=== PATIENT | male | born 1945 | race Two or more races ===

== ENCOUNTER → 2016-06-08 | Outpatient (CLI) | payer OTHER ==
[~2016-06-08] MED LIST: IOPAMIDOL (ISOVUE 370) 100 ML BTL IV ONE
--- NOTE | 2016-06-08 15:51 | CT ---
Unenhanced and Multiphasic Contrast-Enhanced CT Scan of the Abdomen and Pelvis Clinical History: 70-year-old male with hematuria and nephrolithiasis noted to have a possible solid lesion in the left kidney on recent sonography. Technique: Oral contrast was not administered. A multidetector unenhanced helical CT scan was initial ly obtained of the abdomen and pelvis and then following the uncomplicated intravenous administration of 90 mL of Isovue-370, multidetector helical CT scan was obtained during the arterial, portal venou s, and delayed excretory phases. Delayed excretory images were not provided. Images were reformatted at 2.50 and 1.25 mm increments, and reviewed at a variety of window and level settings. Sagittal and coronal constructed images are also provided. The DFOV is 50.0 cm. A dose reduction protocol was used . Comparison Study: Renal sonography, dated June 01, 2016. Findings: Unenhanced CT Scan of the Abdomen: The heart is enlarged, and there are aortic and right coronary art randy atherosclerotic calcifications. There is no pleural or pericardial effusion. There is a tiny calc ified granuloma in the anterior left lower lobe, and a 5.5 x 6.0 mm noncalcified nodule laterally in the right middle lobe. Formal chest CT imaging is recommended to determine if there are other noncalc ified nodules. In the left hepatic lobe, there is a rounded 2.3 x 2.2 cm hypodense cyst with a Hounsf ield unit measurement of 13. There is some increased attenuation associated with the gallbladder, sug gestive of sludge with tiny calcifications seen inferiorly on series 3, image 127. There is no perich olecystic fluid. There is no bile duct dilatation. There is a 2.1 x 1.2 cm right retrocrural lymph no de, as well as some hepatogastric ligament lymph nodes, the largest measuring 1.3 x 1.4 cm. There are also periportal lymph nodes, the largest measuring 3.3 x 2.3 cm. There is some indistinctness to the fat posterior to the pancreas and near the celiac and SMA vasculature. The spleen is enlarged, measu ring 16.3 x 7.9 x 17.6 cm. A couple of punctate calcifications are seen in the body of the pancreas. There is indistinctness of the fat along the upper left pericolic gutter near the spleen and along th e proximal descending colon. There are a couple of 4 mm nonobstructive nephroliths in the lower pole of the left kidney. There is a bilobed, macrolobulated exophytic mass noted along the anterior upper pole of the left kidney with a Hounsfield unit measurement of 37. The right kidney appears normal. Th e abdominal aorta and IVC are normal in caliber. There is severe degenerative disk space narrowing wi th disk desiccation at L1-L2 and L5-S1 with some endplate sclerosis. There is no osteolytic lesion. T here is a normal appearance to the appendix on series 3, images 223-243. There is no evidence of uret erolithiasis or urinary bladder calculi. Phleboliths are seen in the caudal pelvis. Scattered sigmoid colon diverticula are noted. Multiphasic Contrast-Enhanced CT Scan of the Abdomen: The macrolobulated exophytic mass along the ant erior upper pole of the left kidney measures 3.8 x 3.8 x 2.4 cm, and during the arterial phase has a Hounsfield measurement of 54 and during the portal venous phase has a Hounsfield unit measurement of 46. This lesion is consistent with a renal cell carcinoma until proven otherwise. There are a couple of "hon-iadan-cp-characterize" hypodensities in the cortex of the lower pole of the left kidney, stat istically representing tiny cysts; continued surveillance is warranted, however, given the appearance of the solid suspicious mass in the upper pole of the left kidney. There is no solid or cystic mass associated with the right kidney. There is mild nodular thickening of the superior portion of the rig ht adrenal gland, and also involving the medial and lateral limbs of the left adrenal gland. The left hepatic lobe cyst during the portal venous phase has a Hounsfield measurement of 12, and during the excretory phase of 8; this is consistent with a simple cyst. There are numerous serpentine-shaped ves sels in the periportal region (suggestive of "cavernous transformation"), and extending anterior to t he left hepatic lobe to the supraumbilical region, as well as some vascular collaterals in the left u pper quadrant of the abdomen. Again, there are several hepatogastric, periportal, and peripancreatic abnormal lymph nodes as well as the aforementioned splenomegaly. Does the patient have an underlying myelodysplastic syndrome? A component of portal hypertension is also mentioned. Numerous colonic div erticula are seen throughout the ascending colon and the sigmoid colon, and to a lesser degree throug hout other portions of the colon. There is a small amount of right perihepatic ascites. Moderate cent ripetal and subcutaneous obesity is present. There is no abnormal small bowel dilatation. Contrast-Enhanced CT Scan of the Pelvis: The urinary bladder is moderately distended. The pelvic port ions of the ureters are contrast-opacified and follow a normal anatomic course to the urinary bladder (please reference coronal series 501, images 49-58). There is a urine-contrast level seen within the urinary bladder, with no mural mass observed. Scattered sigmoid colon diverticula are seen. The pros [place] gland and the seminal vesicles appear normal. There is no adenopathy or ascites. The osseous str uctures are age-appropriate. There is some mild stranding of the pericolonic fat posterior to the sig moid colon. Impression: 1. There is a 3.8 cm macrolobulated solid mass in the upper pole of the left kidney, most consistent with a renal cell carcinoma (until proven otherwise). 2. Cardiomegaly with aortic valvular and RCA coronary artery atherosclerotic calcifications. 3. There is a 5.5 x 6.0 mm noncalcified pulmonary nodule laterally in the right middle lobe. Formal c hest CT imaging is recommended for further assessment. 4. Small volume of right perihepatic ascites with cavernous transformation of the portal vein and num erous periportal, perihepatic, supraumbilical, and left upper quadrant collaterals within the context of splenomegaly, raising the possibility of portal venous hypertension. The enlarged spleen is also seen in conjunction with hepatogastric, right retrocrural, periportal, and peripancreatic lymph nodes , and exclusion of a myelodysplastic syndrome is suggested. 5. Nonobstructive lower pole left nephrolithiasis with a couple of suspected tiny cortical cysts in t he lower pole of the left kidney. Continued surveillance is warranted. 6. Mild nodular thickening of the limbs of the adrenal glands. 7. Mild gallbladder hydrops with dependent densities, suggestive of sludge and stones. Confirmation w ith sonography could be considered, as clinically directed. 8. Diffuse colonic diverticulosis with some nonspecific pericolonic inflammation along the left peric olic gutter. 9. There is a simple-appearing left hepatic lobe cyst.
== END ==
LOC: CIMAGING 11:19
PROVIDERS: ATTEND Internal Medicine
DX: N28.9 Disorder of kidney and ureter, unspecified (principal); I51.7 Cardiomegaly; I25.10 Atherosclerotic heart disease of native coronary artery without angina pectoris; N20.0 Calculus of kidney; K57.30 Diverticulosis of large intestine without perforation or abscess without bleeding; K76.89 Other specified diseases of liver
CPT/HCPCS: 74178; Q9967

== ENCOUNTER → 2016-06-22 | Outpatient (CLI) | payer OTHER ==
--- NOTE | 2016-06-22 15:20 | CT ---
Unenhanced CT Scan of the Chest Clinical History: 70-year-old male with a left renal neoplasm, noted to have a 6 mm noncalcified nod ule laterally in the right middle lobe on recent CT imaging of the abdomen. Evaluate for other pulmon james nodules. ICD 10 Diagnostic Code: D41.02. TECHNIQUE: A multidetector unenhanced helical CT scan was obtained from the base of the neck inferior ly to the upper abdomen, with images reformatted at 2.50 and 1.50 mm increments, and reviewed at a [facility] of window and level settings. Parasagittal and paracoronal reconstructed images are also review ed on the workstation. The DFOV is 43.2 cm. A dose reduction protocol was used. COMPARISON STUDY: Unenhanced CT scan of the abdomen which included the lung bases, dated 06/08/2016. FINDINGS: The noncalcified 6 mm pulmonary nodule in the lateral right middle lobe is again seen on se swapna 3, image 142. There is a 2 mm subpleural calcified granuloma in the anterolateral left lung base , as well as a couple of other 2 mm calcified granulomata seen in the subpleural aspect of the latera l right middle lobe. There is a tiny curvilinear scar in the medial right apex. There is no axillary, supraclavicular, or pathologically-enlarged superior mediastinal lymphadenopathy. There is a 2.1 cm right retrocrural lymph node on series 2 image 91, and previously identified hepatogastric and peripo rtal lymph nodes are noted. There is splenomegaly, measuring 17 cm in AP diameter. There are some mil d dependent changes seen posteriorly at the lung bases. There is no focal alveolar consolidation, or pleural effusion. The heart is mildly enlarged. There is borderline aneurysmal dilatation of the asce nding thoracic aorta measuring 4.1 x 4.1 cm at the right crossing pulmonary artery. The descending th oracic aorta is upper normal in size, measuring 2.9 x 2.9 cm. There is extensive atherosclerotic calc ification associated with the left main, left anterior descending, left circumflex, and right coronar y arteries. There is also some aortic valvular calcification. There is no pericardial effusion. The o sseous structures are age-appropriate with some degenerative features. There is no lytic or blastic l esion. In the upper abdomen, there is a stable 2.3 x 2.2 cm cyst in the left hepatic lobe. There is increase d attenuation associated with the gallbladder which is moderately distended, consistent with sludge. There are also some dependent stones seen. There is no pericholecystic fluid or gallbladder wall thic kening. IMPRESSION: 1. There is a 6 mm right middle lobe noncalcified nodule; recommend follow-up CT reevaluation in 6 mo nths. There are also small calcified granulomata seen bilaterally. 2. Cardiomegaly with extensive coronary artery atherosclerotic calcifications, as well as some aortic valvular calcification. 3. There is a 2.3 cm left hepatic lobe cyst. 4. Splenomegaly. 5. Right retrocrural, hepatogastric ligament, and periportal lymphadenopathy. 6. Gallbladder distention with sludge and dependent stones. 7. Mild aneurysmal dilatation of the ascending thoracic aorta, measuring 4.1 cm.
== END ==
LOC: CIMAGING 11:19
PROVIDERS: ATTEND Specialist
DX: R91.1 Solitary pulmonary nodule (principal); D41.02 Neoplasm of uncertain behavior of left kidney; K76.89 Other specified diseases of liver; R16.1 Splenomegaly, not elsewhere classified
CPT/HCPCS: 71250-PO

== ENCOUNTER 2016-07-16 16:41 | Emergency (ER) | payer OTHER ==
[2016-07-16 17:08] VITALS: TEMP 98.8
[2016-07-16 17:26] LABS: COLOR YELLOW; LEUKOCYTE ESTERASE,URINE NEGATIVE (NEGATIVE); NITRITE,URINE NEGATIVE (NEGATIVE)
[2016-07-16 17:44] LABS: MUCUS TRACE /lpf (NONE-1+)
--- NOTE | 2016-07-16 18:46 | EDPHY ---
H & P Stated Complaint: constipation /not emptying bladder x 1 week Time Seen by Provider: 07/16/16 18:06 HPI/ROS: CHIEF COMPLAINT: I am constipated HISTORY OF PRESENT ILLNESS: 70-year-old male history of diabetes, recent diagnosis of renal cell carcinoma, has not undergone chemotherapy or surgical intervention for this, complaining of constipation, lower abdominal pain, last bowel movement 3 days ago. Passing gas as normal. Was seen by his PCP earlier today who recommended he go to the ER for further evaluation. He has history of chronic back pain but denies acute complaints. No incontinence. No saddle anesthesia. No lower extremity radicular complaints. No fever or chills. No nausea or vomiting. No flu-like symptoms. PATIENT'S MEDICAL PROVIDERS: Dr. Osei. Dr Medeiros. Dr Castro. REVIEW OF SYSTEMS: A ten point review of systems was performed and is negative with the exception of the items mentioned in the HPI PAST MEDICAL & SURGICAL HISTORY: Diabetes. Recent renal cell carcinoma diagnosis. SOCIAL HISTORY: PHYSICAL EXAM (Prior to examination, patient consented to physical exam, hands were washed and my usual and customary physical exam procedures followed) 1) GENERAL: alert and oriented. Appears to be in no acute distress. 2) HEAD: Normocephalic, atraumatic 3) HEENT: Pupils equal, round, reactive to light bilaterally. Sclera anicteric. 4) NECK: Full range of motion, no meningeal signs. 5) LUNGS: Clear auscultation bilaterally, no wheezes, no rhonchi, no retractions. 6) HEART: Regular rate and rhythm 7) ABDOMEN: obese,No guarding, tender to palpation lower abdomen. negative Webber's, negative Rovsing's, negative peritoneal sign, no right upper quadrant pain 8) MUSCULOSKELETAL: Moving all extremities, no focal areas of tenderness, no obvious trauma. No peripheral edema or discoloration. 9) BACK: No CVA tenderness, no midline vertebral tenderness, no fluctuance, no step-off, no obvious trauma, no visual or palpable abnormality. Patella and Achilles reflexes intact to bilateral strength 5/5. 10) SKIN: No rash, no petechiae. 11) Psychiatric: Patient is oriented X 3, there is no agitation. 12) rectal : Normal rectal tone, no stool in the rectal vault DIFFERENTIAL DIAGNOSIS: in no particular include but limited to bowel obstruction, acute appendicitis, metastases, cauda equina - Personal History Current Tetanus/Diphtheria Vaccine: Yes - Medical/Surgical History Hx Asthma: No Hx Chronic Respiratory Disease: No Hx Diabetes: Yes Hx Cardiac Disease: No Hx Renal Disease: Yes Hx Cirrhosis: No Hx Alcoholism: No Hx HIV/AIDS: No Hx Splenectomy or Spleen Trauma: No Other PMH: diabetes/bph/kidney issues/l knee scope/kidney stones/vasectomy/ibs - Social History Smoking Status: Never smoked Constitutional: Initial Vital Signs Temperature (C) 37.1 C 07/16/16 17:06 Heart Rate 80 07/16/16 17:06 Respiratory Rate 18 07/16/16 17:06 Blood Pressure 135/81 H 07/16/16 17:06 O2 Sat (%) 94 07/16/16 17:06 O2 Delivery Mode Room Air Allergies/Adverse Reactions: No Known Allergies Allergy (Unverified 07/16/16 17:01) Home Medications: Medication Instructions Recorded Aspirin 81mg (*) 07/16/16 Ciprofloxacin [Cipro] 500 mg PO BID #20 tab 07/16/16 Finasteride 07/16/16 Fluticasone Furoate 07/16/16 Labetalol HCl 07/16/16 Losartan-Hctz 100-25 mg Tab 07/16/16 Metformin HCl 07/16/16 Potassium 07/16/16 Pravastatin Sodium 07/16/16 Symax 07/16/16 Tamsulosin HCl 07/16/16 Vitamin B12 07/16/16 metroNIDAZOLE [Flagyl 500 mg (*)] 500 mg PO TID 10 Days 07/16/16 Medical Decision Making - Diagnostics Imagin:50 p.m.: CT Scan of the Abdomen and Pelvis (With Contrast) Indication: Abdominal pain. History of known renal cancer. Comparison: June 2016. Technique: 96 mL of Isovue 300 were given intravenously by machine power injection. Multidetector helical CT imaging was performed from the diaphragm to the symphysis pubis. Dose reduction techniques were utilized. Findings: Abdomen: There is mild scarring of the lung bases. Hypodense lesion is seen at the dome of the liver most compatible with benign hepatic cysts. There is mild free fluid, perihepatic. There is sludge and debris and possible small gallstones dependently in the gallbladder, similar in appearance. Nodules are seen in both adrenal glands, stable in size and appearance. Pancreas is unremarkable. There is a lobulated soft tissue mass exophytic off the superior pole of the left kidney measuring 3.8 cm, stable in appearance. No evidence for hydronephrosis. A couple small renal calculi are seen nonobstructive in the inferior pole of the left kidney. No evidence of dilatation of the proximal ureters. Pelvis: Diverticulosis is seen in the sigmoid colon. There is a segment of bowel wall thickening and stranding in the sigmoid colon and anterior aspect of the pelvis just above the bladder. There is mild free fluid seen in the pelvis. No evidence for free intraperitoneal air. Mild stool is seen in the colon. No evidence for bladder calculus. Degenerative changes seen in the lumbar spine. Impression: 1. Moderate diverticulitis sigmoid colon in the anterior pelvis just above the bladder. Mild free fluid in the pelvis. 2. Lobulated solid mass exophytic off the superior pole of the left kidney most suggestive of renal cell carcinoma, stable in appearance. 3. Debris and probable small gallstones in the gallbladder. 4. Hepatic cyst. 5. Bilateral adrenal gland nodule stable in appearance. 6. Other chronic findings as above. Results called and discussed with Prasanth Heller PA-C, on 07/16/2016 at 1947 hours. Dictated By: Garett Bain MD Images reviewed by myself ED Course/Re-evaluation: 6:40 p.m.: This patient appears well overall. I discussed case Dr. Yenny Quiñones and reviewed the patient's old medical records. At this time, I think that acute spinal etiology such as cauda equina is less than likely as he is neurologically intact lower extremities and has normal rectal tone. However , given his complaints of abdominal pain, his recent diagnosis of renal cell carcinoma, we discussed the possibility of acute surgical abdominal pathology resulting his current symptoms and recommended diagnostic studies including CT imaging. He is agreeable with this. 8:01 p.m.: Re-evaluation. Discussed his imaging results. He is noted to have sigmoid diverticulitis without abscess or perforation. He has no history of chemotherapy or radiation therapy, no immune suppressed condition. I think he can be treated on outpatient basis with oral antibiotics. He is also noted to have a debris and probable small gallstones on his CT scan however no complaints of right upper quadrant pain. Doubt acute cholecystitis. Also recommend patient take a concurrent probiotic with his current antibiotics. - Data Points Laboratory Results: Laboratory Results 07/16/16 18:40 07/16/16 18:40 07/16/16 07/16/16 18:40 17:10 WBC 7.05 10^3/uL (3.80-9.50) RBC 4.80 10^6/uL (4.40-6.38) Hgb 14.9 g/dL (13.7-17.5) Hct 43.2 % (40.0-51.0) MCV 90.0 fL (81.5-99.8) MCH 31.0 pg (27.9-34.1) MCHC 34.5 g/dL (32.4-36.7) RDW 14.1 % (11.5-15.2) Plt Count 92 L 10^3/uL (150-400) MPV 10.3 fL (8.7-11.7) Neut % (Auto) 68.5 % (39.3-74.2) Lymph % (Auto) 14.9 L % (15.0-45.0) [place] % (Auto) 8.9 % (4.5-13.0) Eos % (Auto) 7.2 % (0.6-7.6) Baso % (Auto) 0.4 % (0.3-1.7) Nucleat RBC Rel Count 0.0 % (0.0-0.2) Absolute Neuts (auto) 4.82 10^3/uL (1.70-6.50) Absolute Lymphs (auto) 1.05 10^3/uL (1.00-3.00) Absolute Monos (auto) 0.63 10^3/uL (0.30-0.80) Absolute Eos (auto) 0.51 H 10^3/uL (0.03-0.40) Absolute Basos (auto) 0.03 10^3/uL (0.02-0.10) Absolute Nucleated RBC 0.00 10^3/uL (0-0.01) Immature Gran % 0.1 % (0.0-1.1) Immature Gran # 0.01 10^3/uL (0.00-0.10) Sodium 139 mEq/L (134-144) Potassium 3.8 mEq/L (3.5-5.2) Chloride 104 mEq/L (97-110) Carbon Dioxide 24 mEq/l (22-31) Anion Gap 11 mEq/L (8-16) BUN 8 mg/dL (7-23) Creatinine 0.7 mg/dL (0.7-1.3) Estimated GFR > 60 Glucose 96 mg/dL (70-100) Calcium 10.4 mg/dL (8.5-10.4) Total Bilirubin 6.3 H mg/dL (0.1-1.4) Conjugated Bilirubin 0.6 H mg/dL (0.0-0.5) Unconjugated Bilirubin 5.7 H mg/dL (0.0-1.1) AST 28 IU/L (17-59) ALT 32 IU/L (21-72) Alkaline Phosphatase 84 IU/L (38-126) Total Protein 6.8 g/dL (6.3-8.2) Albumin 3.8 g/dL (3.5-5.0) Lipase 75.0 IU/L (23-300) Urine Color YELLOW Urine Appearance CLEAR Urine pH 6.0 (5.0-7.5) Ur Specific [place] 1.008 (1.002-1.030) Urine Protein NEGATIVE (NEGATIVE) Urine Ketones NEGATIVE (NEGATIVE) Urine Blood 2+ H (NEGATIVE) Urine Nitrate NEGATIVE (NEGATIVE) Urine Bilirubin NEGATIVE (NEGATIVE) Urine Urobilinogen NEGATIVE EU (0.2-1.0) Ur Leukocyte Esterase NEGATIVE (NEGATIVE) Urine RBC 3-5 H /hpf (0-3) Urine WBC 1-3 /hpf (0-3) Ur Epithelial Cells NONE SEEN /lpf (NONE-1+) Urine Mucus TRACE /lpf (NONE-1+) Urine Glucose NEGATIVE (NEGATIVE) Medications Given: Discontinued Medications Ciprofloxacin (Cipro 500mg Prepack#2) 1 btl TAKEHOME EDNOW ONE Stop: 07/16/16 20:12 Last Admin: 07/16/16 20:23 Dose: 1 btl Metronidazole (Flagyl) 500 mg PO EDNOW ONE PRN Reason: Protocol Stop: 07/16/16 20:14 Last Admin: 07/16/16 20:23 Dose: 500 mg Departure - Departure Disposition: Home, Routine, Self-Care Clinical Impression: Sigmoid diverticulitis Condition: Good Instructions: Diverticulitis (ED) Additional Instructions: Seek immediate medical attention if you develop new or worsening symptoms, if you develop fevers, chills, inability to tolerate oral intake or any other symptoms that concerns you. Referrals: He Osei MD [Primary Care Provider] - 1-2 days without fail Arnold Carvajal MD [Medical Doctor] - 5-7 days, call for appt. (Dr. Arnold Carvajal is a project management specialist) Prescriptions: Ciprofloxacin [Cipro] 500 mg PO BID #20 tab metroNIDAZOLE [Flagyl 500 mg (*)] 500 mg PO TID 10 Days
[2016-07-16 18:54] LABS: % IMMATURE GRANULYOCYTES 0.1 % (0.0-1.1); ABSOLUTE IMMATURE GRANULOCYTES 0.01 10^3/uL (0.00-0.10); ADD DIFF? NO; ADD MORPH? NO; ADD SCAN? NO; ATYPICAL LYMPHOCYTE FLAG 10 (0-99); FRAGMENT RBC FLAG 0 (0-99); HEMATOCRIT 43.2 % (40.0-51.0); HEMOGLOBIN 14.9 g/dL (13.7-17.5); LEFT SHIFT FLG 0 (0-99); LIPEMIA HEMOLYSIS FLAG 90 (0-99); MEAN CELL HEMOGLOBIN CONCENTR. 34.5 g/dL (32.4-36.7); MEAN PLATELET VOLUME 10.3 fL (8.7-11.7); PLATELET CLUMPS FLAG 20 (0-99); PLATELET COUNT 92 10^3/uL (150-400); RED CELL DISTRIBUTION WIDTH 14.1 % (11.5-15.2)
[2016-07-16 19:05] LABS: ALANINE AMINOTRANSFERASE 32 IU/L (21-72); ALBUMIN 3.8 g/dL (3.5-5.0); ALKALINE PHOSPHATASE 84 IU/L (38-126); ANION GAP 11 mEq/L (8-16); ASPARTATE AMINOTRANSFERASE 28 IU/L (17-59); BILIRUBIN,TOTAL 6.3 mg/dL (0.1-1.4); BILIRUBIN-CONJUGATED 0.6 mg/dL (0.0-0.5); BILIRUBIN-UNCONJUGATED 5.7 mg/dL (0.0-1.1); CALCIUM 10.4 mg/dL (8.5-10.4); CARBON DIOXIDE 24 mEq/l (22-31); CHLORIDE 104 mEq/L (97-110); CREATININE 0.7 mg/dL (0.7-1.3); GLOMERULAR FILTRATION RATE > 60; GLUCOSE 96 mg/dL (70-100); POTASSIUM 3.8 mEq/L (3.5-5.2); SODIUM 139 mEq/L (134-144); TOTAL PROTEIN 6.8 g/dL (6.3-8.2)
[2016-07-16] MEDS ORDERED: IOPAMIDOL (ISOVUE-300) 100 ML BTL IV ONE (19:08)
--- NOTE | 2016-07-16 19:54 | CT ---
CT Scan of the Abdomen and Pelvis (With Contrast) Indication: Abdominal pain. History of known renal cancer. Comparison: June 2016. Technique: 96 mL of Isovue 300 were given intravenously by machine power injection. [facility] from the diaphragm to the symphysis pubis. Dose reduction techniques w ere utilized. Findings: Abdomen: There is mild scarring of the lung bases. Hypodense lesion is seen at the dome of the liver most compatible with benign hepatic cysts. There is mild free fluid, perihepatic. There is sludge an d debris and possible small gallstones dependently in the gallbladder, similar in appearance. Nodules are seen in both adrenal glands, stable in size and appearance. Pancreas is unremarkable. There is a lobulated soft tissue mass exophytic off the superior pole of the left kidney measuring 3.8 cm, stab le in appearance. No evidence for hydronephrosis. A couple small renal calculi are seen nonobstructiv e in the inferior pole of the left kidney. No evidence of dilatation of the proximal ureters. Pelvis: Diverticulosis is seen in the sigmoid colon. There is a segment of bowel wall thickening and stranding in the sigmoid colon and anterior aspect of the pelvis just above the bladder. There is mi ld free fluid seen in the pelvis. No evidence for free intraperitoneal air. Mild stool is seen in the colon. No evidence for bladder calculus. Degenerative changes seen in the lumbar spine. Impression: 1. Moderate diverticulitis sigmoid colon in the anterior pelvis just above the bladder. Mild free flu id in the pelvis. 2. Lobulated solid mass exophytic off the superior pole of the left kidney most suggestive of renal c ell carcinoma, stable in appearance. 3. Debris and probable small gallstones in the gallbladder. 4. Hepatic cyst. 5. Bilateral adrenal gland nodule stable in appearance. 6. Other chronic findings as above. Results called and discussed with Prasanth Heller PA-C, on 07/16/2016 at 1947 hours.
[2016-07-16] MEDS ORDERED: CIPROFLOXACIN 500MG PREPACK#2 BTL TAKEHOME ONE (20:11)
[2016-07-16] MEDS ORDERED: metroNIDAZOLE 500 MG TAB PO ONE (20:13)
[2016-07-16 20:24] VITALS: BP 148/86; PULSE 85; RESP 16; O2SAT 93
== END 2016-07-16 20:24 | disposition home or self-care (01) ==
DX: K57.32 Diverticulitis of large intestine without perforation or abscess without bleeding (principal); E11.9 Type 2 diabetes mellitus without complications; Z85.528 Personal history of other malignant neoplasm of kidney; Z79.82 Long term (current) use of aspirin
CPT/HCPCS: 74177; 99285; Q9967

== ENCOUNTER 2016-08-26 05:37 | Inpatient (IN) | payer OTHER ==
[2016-08-04 12:38] LABS: % IMMATURE GRANULYOCYTES 0.3 % (0.0-1.1); ABSOLUTE IMMATURE GRANULOCYTES 0.01 10^3/uL (0.00-0.10); ADD DIFF? NO; ADD MORPH? NO; ADD SCAN? NO; ATYPICAL LYMPHOCYTE FLAG 0 (0-99); FRAGMENT RBC FLAG 0 (0-99); HEMATOCRIT 43.1 % (40.0-51.0); HEMOGLOBIN 14.5 g/dL (13.7-17.5); LEFT SHIFT FLG 0 (0-99); LIPEMIA HEMOLYSIS FLAG 80 (0-99); MEAN CELL HEMOGLOBIN 31.3 pg (27.9-34.1); MEAN CELL HEMOGLOBIN CONCENTR. 33.6 g/dL (32.4-36.7); MEAN CELL VOLUME 92.9 fL (81.5-99.8); PLATELET CLUMPS FLAG 0 (0-99); PLATELET COUNT 113 10^3/uL (150-400); RED BLOOD CELL COUNT 4.64 10^6/uL (4.40-6.38); RED CELL DISTRIBUTION WIDTH 14.1 % (11.5-15.2)
[2016-08-26] MEDS ORDERED: LR 1,000 ML IV ONE (06:06)
[2016-08-26] MEDS ORDERED: LIDOCAINE 1% 2 ML INJ ONE (06:28)
[2016-08-26] MEDS ORDERED: SKIN ADHESIVE (DERMABOND) 1 EACH TP ONE (06:43)
[2016-08-26] MEDS ORDERED: BUPIVACAINE/EPI 0.5% 30 ML SDV ONE (06:43)
[2016-08-26] MEDS ORDERED: INDOCYANINE GREEN 25 MG VIAL ONE (06:44)
[2016-08-26] MEDS ORDERED: MANNITOL 20% 100 GM/500 ML BAG IV ONE (06:44)
[2016-08-26] MEDS ORDERED: fentaNYL 100 MCG/2 ML INJ ONE (07:05)
[2016-08-26] MEDS ORDERED: PROPOFOL 200 MG/20 ML VIAL ONE ×2 (07:05)
[2016-08-26] MEDS ORDERED: ROCURONIUM 50 MG/5 ML VIAL ONE (07:19)
[2016-08-26] MEDS ORDERED: LIDOCAINE 2% 100 MG/5 ML SYR ONE (07:20)
[2016-08-26] MEDS ORDERED: MIDAZOLAM 2 MG/2 ML VIAL ONE (07:21)
[2016-08-26] MEDS ORDERED: ceFAZolin 2 GM/DEXTROSE 100 ML IV ONE (08:00)
[2016-08-26] MEDS ORDERED: DEXAMETHASONE 4 MG/ML VIAL ONE (08:38)
[2016-08-26] MEDS ORDERED: ROCURONIUM 100 MG/10 ML VIAL ONE (08:58)
[2016-08-26] MEDS ORDERED: HYDROmorphONE/DILAUDID 2 MG/ML INJ ONE (09:51)
[2016-08-26] MEDS ORDERED: THROMBIN(HUM PLAS)/FIBRINOG/CA 5 ML VIAL TP ONE (11:00)
[2016-08-26] MEDS ORDERED: ONDANSETRON 4 MG/2 ML VIAL ONE (11:40)
[2016-08-26] MEDS ORDERED: SUGAMMADEX SODIUM 200 MG/2 ML VIAL IVP ONE (11:53)
[2016-08-26] MEDS ORDERED: ONDANSETRON 4 MG/2 ML VIAL IVP PRN (13:16)
[2016-08-26] MEDS ORDERED: NALOXONE HCL 0.4 MG/ML INJ IVP PRN (13:17)
--- NOTE | 2016-08-26 13:20 | POSTOPPROG ---
Post Op Note Date of Operation: 08/26/16 (# [id number]) Surgeon: Maggie Medeiros Mechanism Inspector: Jamir Jameson Anesthesia: GET(General Endotracheal) Pre-op Diagnosis: Left renal mass Post-op Diagnosis: Left renal mass Procedure: Robotic left radical nephrectomy & partial ureterectomy Findings: See op note Inf/Abcess present in the surg proc area at time of surgery?: No EBL: 100-500 (400 cc) Complications: None Drains: Rafi Whelan (10 Flat) Specimen(s): Left kidney & proximal ureter
[2016-08-26 14:30] LABS: HEMATOCRIT 40.6 % (40.0-51.0); HEMOGLOBIN 13.4 g/dL (13.7-17.5); MEAN CELL HEMOGLOBIN 30.6 pg (27.9-34.1); MEAN CELL VOLUME 92.7 fL (81.5-99.8); RED BLOOD CELL COUNT 4.38 10^6/uL (4.40-6.38); RED CELL DISTRIBUTION WIDTH 14.5 % (11.5-15.2)
[2016-08-26 14:35] LABS: ANION GAP 10 mEq/L (8-16); CALCIUM 9.5 mg/dL (8.5-10.4); CARBON DIOXIDE 22 mEq/l (22-31); CHLORIDE 107 mEq/L (97-110); CREATININE 1.2 mg/dL (0.7-1.3); GLOMERULAR FILTRATION RATE > 60; GLUCOSE 156 mg/dL (70-100); POTASSIUM 4.8 mEq/L (3.5-5.2); SODIUM 139 mEq/L (134-144)
[2016-08-26] MEDS: 1/2 NS 1,000 ML IV SCH (15:28)
[2016-08-26] MEDS: INSULIN REGULAR HUMAN 100 UNIT/ML SC SCH ×2 (18:30→20:46)
--- NOTE | 2016-08-26 20:46 | GOP ---
[f rep st] OPERATIVE REPORT DATE OF OPERATION: 08/26/2016 SURGEON: Maggie Medeiros MD EMBEDDED NURSE: Jamir Jameson MD ANESTHESIA: General endotracheal. PREOPERATIVE DIAGNOSIS: Left upper pole renal mass. POSTOPERATIVE DIAGNOSIS: Left upper pole renal mass. PROCEDURE PERFORMED: Robotically-assisted laparoscopic left radical nephrectomy. FINDINGS: Extremely enlarged and abnormal spleen with significant intraabdominal inflammation and adhesions, making identification of normal tissue planes virtually impossible. The patient also had an extremely large amount of intraabdominal and retroperitoneal fat, as detailed below. SPECIMENS: Right kidney and proximal ureter. ESTIMATED BLOOD LOSS: Approximately 400 cc. INDICATIONS: This gentleman was recently found to have an approximately 3.5 cm left upper pole renal mass. It was recommended the patient undergo intraoperative management. The planned procedure preoperatively was robotically -assisted robotic partial nephrectomy. The indications for the procedure, as well as potential risks and complications, were discussed with the patient preoperatively. He appeared to understand, his questions were answered, and he wished to proceed. Written informed surgical consent was thereafter obtained. DESCRIPTION OF PROCEDURE: The patient was brought to the operating room administered general endotracheal anesthesia. An orogastric tube was placed and removed at the conclusion of the case. A Moncada catheter was placed to gravity drainage unremarkably. The patient was placed over the break of the table and the table was flexed approximately 20 degrees. A triangular pad was then used to elevate the patient's left side approximately 30 degrees. The patient's right leg was flexed at the knee and the left leg was kept straight over it with pillows in between them. The patient's left arm was kept in a neutral position in a foam trough along his left side, while the right arm was kept abducted less than 90 degrees on an arm board. All appropriate pressure points were thoroughly padded, and an axillary roll was also used. Because of the patient's extreme obesity, every aspect of this case was much more difficult than would normally be encountered. The patient was then thoroughly secured to the table with several wide strips of cloth tape from head to toe. The padded table strap was also used. Once the patient was secured to the table, the table was tilted back and forth in the maximum right and left positions to ensure stability on the table, and this was confirmed. The abdomen was then placed in as flat a position as possible for prepping, draping, and placement of ports. The abdomen was then sterilely prepped and draped in standard fashion utilizing Ioban. I then gained intraabdominal access to the left of midline nursing home between the umbilicus and the xiphoid process with an extra long Veress needle. The abdomen was insufflated to 15 mmHg pressure. An extra long 12 mm laparoscopic port was placed at this location. Proper intraabdominal access was confirmed with a 0 degree, 12 mm robotic camera. I then placed my remaining ports which were located as follows: a 12 mm laparoscopic catering assistant port just below the umbilicus and to the left of midline, an 8 mm robotic port in the left upper quadrant, just below the costal margin near the midclavicular line, another 8 mm robotic port placed closer to the left lower quadrant, again in the vicinity of the midclavicular line. These robotic ports were placed to create an approximately 100 degree angle between the 2 robotic ports and the camera port. All the ports were placed under direct vision without complication. I then tilted the patient into approximately 90-degree left flank up position. The robot was then docked perpendicular to the patient's left flank while keeping the camera arm of the robot in line with the laparoscopic port where the camera would be placed. The robotic arms were secured to the appropriate ports. I then left the patient's bedside and entered the surgeon's robotic console. The abdomen was carefully inspected. The spleen was noted to be much larger than normal and had a very unusual stone glass dark brown and yellow speckled appearance. The surface of the spleen also appeared much more nodular than the typical smooth appearance. The omentum was also abnomrally draped over the lateral aspect of the spleen and adherent to the left lateral abdominal wall. I carefully released the omental attachments from the left lateral abdominal wall, ultimately using a series of hemoclips as well as a 45 mm linear vascular stapler, as these omental attachments were quite vascular. Care was taken to ensure that the spleen was not harmed during these maneuvers. These omental attachments were also adherent to the lower aspect and underside of the spleen and had to be ligated as noted above. I then dissected the left colon off the lateral abdominal wall and mobilized it medially across the midline in order to identify the underlying kidney, and its overlying perinephric fat with Gerota's fascia. It should be noted that there was an extreme amount of intraabdominal fat and much more retroperitoneal fat than would normally be seen. This did hamper visualization of the renal hilum and the aorta. There was also an extensive amount of fat overlying the immediate adventitia of the abdominal aorta. I was ultimately able to identify the ureter inferior to the kidney and lateral to the aorta. I then dissected below the level of the kidney posteriorly until the psoas fascia could be seen. I then retracted the kidney and ureter upward, including the most caudal aspect of the perinephric fat, in order to dissect the medial aspect of the kidney in order to find the renal hilum. Again, there was an extensive amount of fat, which made the dissection much more difficult than normal. There was also no evidence of normal tissue planes due to chronic inflammation and scarring, with the reasons for this presence not clear to me. As I was able to identify the renal vein and what appeared to be possibly the renal artery just above it, I then was able to visualize the abnormal mass along the anteromedial aspect of the left kidney upper pole. This mass was being draped by the excessively enlarged spleen. As I continued my dissection to help identify the renal hilar vasculature, I gave serious consideration as to whether it would be possible to perform a partial nephrectomy in this case due to the anatomical issues mentioned above. There was also quite a bit of oozing and generalized bleeding from all of the dissected tissue, likely as result of the chronic inflammatory nature of the retroperitoneal tissue, as well as maybe due to the patient's mild thrombocytopenia and his mildly abnormal coagulation parameters. The options, at this point, that were considered were to continue with attempted partial nephrectomy versus performing a robotic radical nephrectomy versus pursuing some form of open surgery. Because of the patient's very large size, it was felt that any open surgery would be extremely morbid, and associated with a much higher complication rate both intraoperatively and postoperatively. Therefore, I excluded any thought of pursuing open surgery. After further consideration, I decided to proceed with radical nephrectomy, rather than partial. We then used the 45 mm linear vascular stapler in order to ligate the renal hilum. The linear vascular stapler was also used to carefully dissect the kidney with the perirenal fat from the surrounding tissue, particularly along the splenorenal attachments. Great care was taken to ensure that the abnormally enlarged spleen was not harmed during this portion of the procedure. I also took care to ensure that I did not harm the tail of the pancreas during this operative procedure. After the superior attachments of the kidney from the spleen were then freed, I completed the dissection of the kidney and its perinephric fat from the surrounding tissue inferiorly, laterally, and posteriorly. The ureter was also ligated below the lower pole of the kidney with the linear vascular stapler. At this point, the kidney was completely free and placed in the pelvis to be later retrieved in a specimen bag. It should also be mentioned that during the course of the operation, Dr. Jameson placed a 5 mm laparoscopic port above the umbilicus near the midline to aid in further exposure during the case. The retroperitoneal space was carefully inspected, both with 15 mm of intraabdominal pressure, as well as 5 mm. There was some slight oozing from a few areas which were dealt with using bipolar cautery, as well as Surgicel and Evicel. Following these maneuvers, and with 5 mm of intraabdominal pressure, no significant bleeding was seen. Nonetheless, I decided to place a 10 flat Rafi-Whelan drain in the retroperitoneal space within the left renal fossa. This was placed through the lower infraumbilical catering assistant port and ultimately secured to the skin with a 2-0 silk suture (after the drain was brought out through a separate stab wound in the lower abdomen to the right of the primary incision). The specimen was then retrieved in a 15 mm bag after replacing the 12 mm catering assistant port with a 15 mm port. This completed the robotic portion of the procedure. I then returned to the patient's bedside. The fascia of the 12 mm camera port was closed with an 0-Vicryl suture and the fascial closure device. The lower infraumbilical port site was then extended along the skin longitudinally with a combination of a scalpel and electrocautery in order to allow for retrieval of the specimen bag. This wound was then thoroughly irrigated and hemostasis was obtained, as necessary, with electrocautery and a 2-0 Vicryl free tie, as there appeared to be possibly some bleeding from the left inferior epigastric. This was controlled without difficulty. I then reapproximated the anterior rectus fascia in this open portion of the incision with a running 0 Vicryl suture. All of the wounds were anesthetized with a total of 30 cc of 0.5% Marcaine with epinephrine. The skin edges were then reapproximated with running 4-0 Monocryl subcuticular suture, followed by the application of Dermabond. A drain sponge was placed around the Rafi-Whelan exit site, followed by Tegaderm. The Rafi-Whelan drain was connected to bulb suction. The patient was then turned back over to the supine position on the operating room table. He was extubated , transferred to his bed, then taken to the recovery room. He tolerated the procedure well overall. COMPLICATIONS: None. DRAINS: 10 flat Rafi Whelan. DISPOSITION: He was transferred to the recovery room in stable condition and will be admitted for postoperative care. /[id number]/MODL MTDD
[2016-08-26] MEDS: HYDROmorphONE/DILAUDID 6 MG/30 ML PCA IV PRN (21:03)
[2016-08-27 05:58] LABS: HEMATOCRIT 37.2 % (40.0-51.0); HEMOGLOBIN 12.2 g/dL (13.7-17.5); MEAN CELL HEMOGLOBIN 30.6 pg (27.9-34.1); MEAN CELL HEMOGLOBIN CONCENTR. 32.8 g/dL (32.4-36.7); MEAN CELL VOLUME 93.2 fL (81.5-99.8); RED BLOOD CELL COUNT 3.99 10^6/uL (4.40-6.38); RED CELL DISTRIBUTION WIDTH 14.6 % (11.5-15.2)
[2016-08-27 06:15] LABS: ANION GAP 10 mEq/L (8-16); CALCIUM 9.4 mg/dL (8.5-10.4); CARBON DIOXIDE 23 mEq/l (22-31); CHLORIDE 103 mEq/L (97-110); CREATININE 1.4 mg/dL (0.7-1.3); GLOMERULAR FILTRATION RATE 50; GLUCOSE 108 mg/dL (70-100); POTASSIUM 4.8 mEq/L (3.5-5.2); SODIUM 136 mEq/L (134-144)
[2016-08-27] MEDS: INSULIN REGULAR HUMAN 100 UNIT/ML SC SCH ×4 (08:47→23:35)
[2016-08-27] MEDS: LABETALOL HCL 200 MG TAB PO SCH (08:56)
[2016-08-27] MEDS: TAMSULOSIN HCL 0.4 MG CAP PO SCH (08:56)
[2016-08-27] MEDS: LOSARTAN/HCTZ 50/12.5 1 TAB PO SCH (08:56)
--- NOTE | 2016-08-27 13:47 | SOAPPROG ---
SOAP Progress Note Assessment/Plan: Assessment: POD 1 s/p robotic left radical nephrectomy - stable. Plan: 1. Ambulate 2. Clear liquids -- advance to diabetic diet tomorrow. 3. Reviewed intraoperative findings & procedure performed w/ pt. 4. Remove Moncada in AM. Subjective: No complaints. No N/V, pain controlled with SERV[employer]K [employer]IATE. Objective: Vital Signs Temp Pulse Resp BP Pulse Ox 36.9 C 74 16 106/59 L 93 08/27/16 10:14 08/27/16 10:14 08/27/16 10:14 08/27/16 10:14 08/27/16 10:14 Laboratory Results 08/27/16 04:47 08/27/16 04:47 08/26/16 08/27/16 08/28/16 05:59 05:59 05:59 Intake Total 3800 Output Total 3110 200 Balance 690 -200 Physical Exam - Physical Exam General Appearance: alert, no apparent distress, obese Abdomen: soft, other (incisions ok) Male Genitalia: other (urine clear via Moncada) Skin: normal color, warm/dry Extremities: non-tender, normal inspection Neuro/Psych: alert, normal mood/affect, oriented x 3 ICD10 Worksheet Patient Problems: Problems Problem Status Onset Left renal mass Acute - ICD10 Problem Qualifiers (1) Left renal mass
[2016-08-27] MEDS ORDERED: ZOLPIDEM TARTRATE 5 MG TAB PO SCH (21:00)
[2016-08-28 05:54] LABS: HEMATOCRIT 33.5 % (40.0-51.0); HEMOGLOBIN 11.2 g/dL (13.7-17.5); MEAN CELL HEMOGLOBIN 30.6 pg (27.9-34.1); MEAN CELL HEMOGLOBIN CONCENTR. 33.4 g/dL (32.4-36.7); MEAN CELL VOLUME 91.5 fL (81.5-99.8); RED BLOOD CELL COUNT 3.66 10^6/uL (4.40-6.38); RED CELL DISTRIBUTION WIDTH 14.6 % (11.5-15.2)
[2016-08-28 06:06] LABS: ANION GAP 6 mEq/L (8-16); CALCIUM 9.4 mg/dL (8.5-10.4); CARBON DIOXIDE 25 mEq/l (22-31); CHLORIDE 103 mEq/L (97-110); CREATININE 1.4 mg/dL (0.7-1.3); GLOMERULAR FILTRATION RATE 50; GLUCOSE 105 mg/dL (70-100); POTASSIUM 4.5 mEq/L (3.5-5.2); SODIUM 134 mEq/L (134-144)
[2016-08-28] MEDS: INSULIN REGULAR HUMAN 100 UNIT/ML SC SCH ×3 (07:54→18:30)
[2016-08-28] MEDS: LOSARTAN/HCTZ 50/12.5 1 TAB PO SCH (08:34)
[2016-08-28] MEDS: TAMSULOSIN HCL 0.4 MG CAP PO SCH (08:35)
[2016-08-28] MEDS: LABETALOL HCL 200 MG TAB PO SCH (08:35)
[2016-08-28] MEDS ORDERED: ZOLPIDEM TARTRATE 5 MG TAB PO PRN (09:08)
--- NOTE | 2016-08-28 09:51 | SOAPPROG ---
SOAP Progress Note Assessment/Plan: Assessment: s/p robotic nephrectomy BPH Plan: Ambulate Convert to PO pain pills if tolerates lunch Continue tamsulosin Replace rosas if unable to void 08/28/16 09:49 Subjective: Feels tired. Did not tolerate ambien well. no nausea. Has not urinated yet. Does not feel the need at this time. Objective: Vital Signs Temp Pulse Resp BP Pulse Ox 36.7 C 105 H 18 120/62 93 08/28/16 07:38 08/28/16 08:35 08/28/16 07:38 08/28/16 08:35 08/28/16 07:38 Laboratory Results 08/28/16 05:00 08/28/16 05:00 08/27/16 08/28/16 08/29/16 05:59 05:59 05:59 Intake Total 3800 2592 Output Total 3110 2054 160 Balance 690 538 -160 Physical Exam - Physical Exam General Appearance: alert Respiratory: No respiratory distress Abdomen: non-tender, soft, other (incisions cdi) Skin: normal color Extremities: No non-tender ICD10 Worksheet Patient Problems: Problems Problem Status Onset Left renal mass Acute
[2016-08-28] MEDS: 1/2 NS 1,000 ML IV SCH ×2 (11:59→22:38)
[2016-08-28] MEDS: HYDROmorphONE/DILAUDID 6 MG/30 ML PCA IV PRN (22:38)
[2016-08-29] MEDS: INSULIN REGULAR HUMAN 100 UNIT/ML SC SCH ×5 (00:01→21:41)
[2016-08-29 05:09] LABS: % IMMATURE GRANULYOCYTES 0.2 % (0.0-1.1); ABSOLUTE IMMATURE GRANULOCYTES 0.02 10^3/uL (0.00-0.10); ADD DIFF? NO; ADD MORPH? NO; ADD SCAN? NO; ATYPICAL LYMPHOCYTE FLAG 0 (0-99); FRAGMENT RBC FLAG 0 (0-99); HEMATOCRIT 32.2 % (40.0-51.0); HEMOGLOBIN 10.7 g/dL (13.7-17.5); LEFT SHIFT FLG 0 (0-99); LIPEMIA HEMOLYSIS FLAG 80 (0-99); MEAN CELL HEMOGLOBIN CONCENTR. 33.2 g/dL (32.4-36.7); MEAN CELL VOLUME 93.3 fL (81.5-99.8); MEAN PLATELET VOLUME 11.4 fL (8.7-11.7); PLATELET CLUMPS FLAG 0 (0-99); PLATELET COUNT 104 10^3/uL (150-400); RED BLOOD CELL COUNT 3.45 10^6/uL (4.40-6.38); RED CELL DISTRIBUTION WIDTH 14.6 % (11.5-15.2)
[2016-08-29 05:29] LABS: ALANINE AMINOTRANSFERASE 25 IU/L (21-72); ALBUMIN 2.6 g/dL (3.5-5.0); ALKALINE PHOSPHATASE 52 IU/L (38-126); ANION GAP 7 mEq/L (8-16); ASPARTATE AMINOTRANSFERASE 25 IU/L (17-59); BILIRUBIN,TOTAL 3.1 mg/dL (0.1-1.4); CALCIUM 9.3 mg/dL (8.5-10.4); CARBON DIOXIDE 25 mEq/l (22-31); CHLORIDE 100 mEq/L (97-110); CREATININE 1.6 mg/dL (0.7-1.3); GLOMERULAR FILTRATION RATE 43; GLUCOSE 106 mg/dL (70-100); POTASSIUM 4.1 mEq/L (3.5-5.2); SODIUM 132 mEq/L (134-144)
[2016-08-29 05:35] LABS: BILIRUBIN-CONJUGATED 0.6 mg/dL (0.0-0.5); BILIRUBIN-UNCONJUGATED 2.5 mg/dL (0.0-1.1)
[2016-08-29] MEDS ORDERED: BISACODYL 10 MG SUPP PR ONE (08:45)
[2016-08-29] MEDS ORDERED: NS 1,000 ML IV ONE (08:45)
--- NOTE | 2016-08-29 09:00 | SOAPPROG ---
SOAP Progress Note Assessment/Plan: Assessment: s/p robotic nephrectomy BPH mild LBP Plan: Cont tamsulosin dulcolax supp x 1 start colace po pain pills NS bolus x 1 Hold BP this am Subjective: Feels weak. C/O gas pains. Concerned about recurrent diverticulitis. +small amount of flatus. Poor po intake. Voiding OK. UOP has increased. HORACIO creatinine c/w peritoneal fluid Objective: Vital Signs Temp Pulse Resp BP Pulse Ox 36.8 C 68 12 92/51 L 96 08/29/16 07:49 08/29/16 07:49 08/29/16 07:49 08/29/16 07:49 08/29/16 07:49 Laboratory Results 08/29/16 04:41 08/29/16 04:41 08/28/16 08/29/16 08/30/16 05:59 05:59 05:59 Intake Total 2592 1200.9 Output Total 2054 1510 500 Balance 538 -309.1 -500 Physical Exam - Physical Exam General Appearance: WD/WN, obese Respiratory: No respiratory distress Abdomen: non-tender, soft, other (incisions cdi. No purulence or erythema. No LLQ tenderness. No point tenderness over incisions), No organomegaly, No distended, No guarding, No rebound Skin: warm/dry Neuro/Psych: oriented x 3 ICD10 Worksheet Patient Problems: Problems Problem Status Onset Left renal mass Acute
[2016-08-29] MEDS: TAMSULOSIN HCL 0.4 MG CAP PO SCH (09:15)
[2016-08-29] MEDS: DOCUSATE SODIUM 100 MG CAP PO SCH ×2 (09:16→21:44)
[2016-08-29] MEDS: LABETALOL HCL 200 MG TAB PO SCH (11:05)
[2016-08-29] MEDS: LOSARTAN/HCTZ 50/12.5 1 TAB PO SCH (11:07)
[2016-08-29] MEDS: HYDROmorphONE/DILAUDID 1 MG/ML SYR IVP PRN ×2 (12:00→18:40)
[2016-08-29] MEDS: HYDROCODONE/APAP 5/325 TAB PO PRN ×2 (12:01→18:33)
[2016-08-29] MEDS: 1/2 NS 1,000 ML IV SCH (17:27)
[2016-08-30] MEDS: 1/2 NS 1,000 ML IV SCH (03:16)
[2016-08-30 04:30] LABS: % IMMATURE GRANULYOCYTES 0.4 % (0.0-1.1); ABSOLUTE IMMATURE GRANULOCYTES 0.03 10^3/uL (0.00-0.10); ADD DIFF? NO; ADD MORPH? NO; ADD SCAN? NO; ATYPICAL LYMPHOCYTE FLAG 10 (0-99); FRAGMENT RBC FLAG 0 (0-99); HEMATOCRIT 33.6 % (40.0-51.0); HEMOGLOBIN 11.3 g/dL (13.7-17.5); LEFT SHIFT FLG 10 (0-99); LIPEMIA HEMOLYSIS FLAG 80 (0-99); MEAN CELL HEMOGLOBIN 31.7 pg (27.9-34.1); MEAN CELL HEMOGLOBIN CONCENTR. 33.6 g/dL (32.4-36.7); MEAN CELL VOLUME 94.1 fL (81.5-99.8); PLATELET CLUMPS FLAG 0 (0-99); PLATELET COUNT 108 10^3/uL (150-400); RED BLOOD CELL COUNT 3.57 10^6/uL (4.40-6.38); RED CELL DISTRIBUTION WIDTH 14.6 % (11.5-15.2)
[2016-08-30 04:46] LABS: ALANINE AMINOTRANSFERASE 34 IU/L (21-72); ALBUMIN 2.6 g/dL (3.5-5.0); ALKALINE PHOSPHATASE 87 IU/L (38-126); AMYLASE 103 IU/L (30-110); ANION GAP 9 mEq/L (8-16); ASPARTATE AMINOTRANSFERASE 34 IU/L (17-59); BILIRUBIN,TOTAL 3.5 mg/dL (0.1-1.4); CALCIUM 9.6 mg/dL (8.5-10.4); CARBON DIOXIDE 21 mEq/l (22-31); CHLORIDE 103 mEq/L (97-110); CREATININE 1.3 mg/dL (0.7-1.3); GLOMERULAR FILTRATION RATE 55; GLUCOSE 98 mg/dL (70-100); POTASSIUM 4.1 mEq/L (3.5-5.2); SODIUM 133 mEq/L (134-144); TOTAL PROTEIN 5.3 g/dL (6.3-8.2)
[2016-08-30 04:53] LABS: BILIRUBIN-CONJUGATED 0.9 mg/dL (0.0-0.5); BILIRUBIN-UNCONJUGATED 2.6 mg/dL (0.0-1.1)
[2016-08-30] MEDS: INSULIN REGULAR HUMAN 100 UNIT/ML SC SCH ×4 (07:45→21:37)
[2016-08-30] MEDS: LABETALOL HCL 200 MG TAB PO SCH (08:08)
[2016-08-30] MEDS: LOSARTAN/HCTZ 50/12.5 1 TAB PO SCH (08:09)
[2016-08-30] MEDS: TAMSULOSIN HCL 0.4 MG CAP PO SCH (08:57)
[2016-08-30] MEDS: DOCUSATE SODIUM 100 MG CAP PO SCH ×2 (08:57→21:57)
[2016-08-30] MEDS: HYDROCODONE/APAP 5/325 TAB PO PRN ×4 (09:54→22:43)
[2016-08-30] MEDS: HYDROmorphONE/DILAUDID 1 MG/ML SYR IVP PRN ×5 (09:54→22:48)
--- NOTE | 2016-08-30 13:55 | SOAPPROG ---
SOAP Progress Note Assessment/Plan: Assessment: Post nephrectomy Elevated Bilirubin/RUQ pain High Horacio drain output Plan: Continue to ambulate as necessary. Diet as tolerated. CT ordered. Request hospitalist consult. Monitor. 08/30/16 13:53 Subjective: gas but no bowel movements. ambulating. Objective: Vital Signs Temp Pulse Resp BP Pulse Ox 36.5 C 84 18 101/58 L 97 08/30/16 12:00 08/30/16 12:00 08/30/16 12:00 08/30/16 12:00 08/30/16 12:00 Laboratory Results 08/30/16 04:07 08/30/16 04:07 08/29/16 08/30/16 08/31/16 05:59 05:59 05:59 Intake Total 1200.9 1004 Output Total 1510 9537 540 Balance -309.1 -2561 -540 Physical Exam - Physical Exam General Appearance: alert, no apparent distress Neck: normal inspection Respiratory: normal breath sounds, No respiratory distress Abdomen: other (RUQ TTP. HORACIO draining moderately bloody ouput) Male Genitalia: other ICD10 Worksheet Patient Problems: Problems Problem Status Onset Left renal mass Acute
[2016-08-30] MEDS: MAGNESIUM HYDROXIDE 30 ML UDCUP PO PRN (14:20)
--- NOTE | 2016-08-30 22:16 | GCON ---
[f rep st] CONSULTATION DATE OF CONSULTATION: 08/30/2016 REFERRING PHYSICIAN: Gilbert Milton MD REASON FOR CONSULTATION: Evaluation of hyperbilirubinemia. HISTORY OF PRESENT ILLNESS: This is a 70-year-old male who underwent a robotically-assisted laparos copic left radical nephrectomy for a left upper pole renal mass by Dr. Medeiros on 08/26/2016. During that course of his postoperative stay, he has had copious amounts of output through his HORACIO drain. The patient states that when the HORACIO drain is removed and attached back to suction, he experiences a severe 10/10 sharp diffuse abdominal pain. He also reports some right upper quadrant pain. He carlos es any fevers or chills. Postoperatively, Urology has been monitoring his LFTs. His total bilirubin has ranged from 3.1 to 3 .5. Upon questioning the patient, he tells me he does have a history of Gilbert's syndrome. Upon review of his bilirubin starting in May of 2016, he peaked as high as 6.3 on 07/16/2016, but typicall y runs in the mid 3s. He denies any jaundice or itching skin. PAST MEDICAL HISTORY: 1. Left renal mass, status post nephrectomy. 2. Kidney stones. 3. Hypertension. 4. Type 2 diabetes mellitus. 5. Gilbert's syndrome. 6. Splenomegaly. 7. Left knee scope. MEDICATIONS: Reviewed. Refer to [employer] for details. ALLERGIES: No known drug allergies. SOCIAL HISTORY: He denies any alcohol, tobacco, or illicit drug use. FAMILY HISTORY: Reviewed and noncontributory. REVIEW OF SYSTEMS: Comprehensive 10-point review of system was done, and was negative, except for a s mentioned in the HPI and below. PULMONARY: Reports some intermittent bilateral pain with deep in spiration. PHYSICAL EXAMINATION: VITAL SIGNS: Blood pressure 107/58, pulse of 85, respiratory rate 16, O2 sat uration 93% on room air. Temperature afebrile. GENERAL: No acute distress. HEAD: Normocephalic, atraumatic. EYES: PERRLA. Sclerae anicteric. MOUTH: Moist mucous membranes. NECK: Supple. N o lymphadenopathy. CARDIOVASCULAR: S1, S2. No murmurs, rubs, clicks, gallops. No JVD. No lower extremity edema. PULMONARY: Lungs are clear. No wheezes, rales, or rhonchi. Breath sounds are di minished in bilateral bases. ABDOMEN: Soft, but distended. Bowel sounds are diminished. There is some tenderness to palpation over the right upper quadrant. HORACIO drain is in place, with the tube en tering at the umbilicus. EXTREMITIES: No clubbing or cyanosis. NEUROLOGIC: Cranial nerves 2-12 g rossly intact. No focal motor or sensory deficits. SKIN: Clear. No rashes. LABORATORY DATA: WBC is 8.26, hemoglobin 11.3, hematocrit 33.6, platelets 108. Sodium 133, potassi um 4.1, chloride 103, CO2 21, BUN 23, creatinine 1.3, glucose 98. AST 34, ALT 34, total bilirubin 3 .5, conjugated bilirubin 0.9, unconjugated bilirubin 2.6, albumin 2.6. Hepatitis panel done June [address] of the abdomen and pelvis done today, Radiology report was reviewed, showing cholelithiasis with pericholecystic fluid. There is a small left pleural effusion, with bilateral lower lobe pneumoniti s or atelectasis, pericardial effusion. There is portal hypertension with multiple diffuse varices. There is improving sigmoid diverticulitis. ASSESSMENT AND PLAN: This is a 70-year-old male, postoperative day 4 left nephrectomy, with residua l complex fluid and gas bubbles in the nephrectomy site, with HORACIO drain in place, whom I have been as ked to consult on for evaluation of: 1. Elevated conjugated and unconjugated bilirubin levels, with a normal alkaline phosphatase and LF Ts, with history of Gilbert's syndrome. Plan: I suspect his hyperbilirubinemia is a result of his recent surgery, in the setting of Gilbert's syndrome. An abdominal ultrasound has been ordered by Masoud magdaleno, which I think is reasonable to further evaluate for obstruction and stones. 2. Diffuse abdominal pain that seems to be exacerbated with draining of his HORACIO drain. Plan: Once again, on CT imaging, the patient has a residual complex fluid collection in the nephrectomy site. We will defer further drain management to the Surgical team. The CT did note some sigmoid diverticu litis that is improving. The patient is not having fevers or leukocytosis, so will defer antibiotic s at this time, but would reconsider this if he does have more symptoms consistent with acute divert iculitis. 3. Constipation. Plan: The patient has not had a bowel movement since surgery. Constipation coul d certainly be contributing to his abdominal discomfort. We will order a bowel protocol. 4. History of hypertension that appears to be well controlled. Plan: Continue home dose of labeta lol and Hyzaar, and monitor. 5. History of type 2 diabetes mellitus. Plan: I would recommend monitoring blood sugars before me als and at bedtime in the postoperative state. His current home dose of metformin is on hold. Cont inue with correctional insulin as ordered for now. Thank you for allowing me to participate in the care of this patient. The Hospitalist service will continue to follow along with you. /[id number]/MODL
--- NOTE | 2016-08-30 22:20 | HOSPPROG ---
Hospitalist Progress Note Assessment/Plan: this notified by the radiologist's of an ultrasound consistent with possible acute cholecystitis with gallbladder wall thickening and pericholecystic fluid. I discussed this with Dr. Mike Chen will see the patient in consultation. He also recommended obtaining a HIDA scan which I have ordered. I spoke to Dr. Milton who is on-call for urology was understanding of this plan Objective: Vital Signs Temp Pulse Resp BP Pulse Ox 36.9 C 90 16 105/57 L 90 L 08/30/16 19:53 08/30/16 19:53 08/30/16 19:53 08/30/16 19:53 08/30/16 19:53 Laboratory Results 08/30/16 04:07 08/30/16 04:07 08/29/16 08/30/16 08/31/16 05:59 05:59 05:59 Intake Total 1200.9 1004 500 Output Total 1510 3565 1285 Balance -309.1 -2561 -785 ICD10 Worksheet Patient Problems: Problems Problem Status Onset Left renal mass Acute
--- NOTE | 2016-08-30 23:23 | SOAPPROG ---
MAXIMILIANO Progress Note Assessment/Plan: Assessment: 70 MALE WITH ASCITES AFTER LEFT NEPHRECTOMY AND PRESENTS WITH RUQ PAIN/ AFEBRILE / LFTs OK EXCEPT FOR GILBERTS BILI ELEVATION ABD VERY TENDER RUQ WITH FULLNESS/ KNOWN HX OF GALLSTONES US SHOWS POSSIBLE SMALL STONES AND WALL THICKNESS/ CT SHOWS STONES AND ASCITES AND EVIDENCE OF PORTAL HYPERTENSION RISKS AND OPTIONS FULLY DISCUSSED/ WILL LIKELY NEED LAP NIRU Plan:HIDA SCAN IN AM / LAP NIRU IF CONFIRMING 08/30/16 23:18 Objective: Vital Signs Temp Pulse Resp BP Pulse Ox 36.9 C 90 16 105/57 L 90 L 08/30/16 19:53 08/30/16 19:53 08/30/16 19:53 08/30/16 19:53 08/30/16 19:53 Laboratory Results 08/30/16 04:07 08/30/16 04:07 08/29/16 08/30/16 08/31/16 05:59 05:59 05:59 Intake Total 1200.9 1004 500 Output Total 9598 2975 1288 Balance -309.1 -2561 -785 ICD10 Worksheet Patient Problems: Problems Problem Status Onset Left renal mass Acute
[2016-08-31] MEDS: 1/2 NS 1,000 ML IV SCH (00:46)
[2016-08-31] MEDS: HYDROCODONE/APAP 5/325 TAB PO PRN ×3 (02:58→11:05)
[2016-08-31] MEDS: INSULIN REGULAR HUMAN 100 UNIT/ML SC SCH ×3 (07:53→20:37)
[2016-08-31 08:14] LABS: % IMMATURE GRANULYOCYTES 0.2 % (0.0-1.1); ABSOLUTE IMMATURE GRANULOCYTES 0.02 10^3/uL (0.00-0.10); ADD DIFF? NO; ADD MORPH? NO; ADD SCAN? NO; ATYPICAL LYMPHOCYTE FLAG 0 (0-99); FRAGMENT RBC FLAG 10 (0-99); HEMATOCRIT 30.4 % (40.0-51.0); HEMOGLOBIN 10.4 g/dL (13.7-17.5); LEFT SHIFT FLG 20 (0-99); LIPEMIA HEMOLYSIS FLAG 90 (0-99); MEAN CELL HEMOGLOBIN 31.9 pg (27.9-34.1); MEAN CELL HEMOGLOBIN CONCENTR. 34.2 g/dL (32.4-36.7); MEAN CELL VOLUME 93.3 fL (81.5-99.8); MEAN PLATELET VOLUME 10.3 fL (8.7-11.7); PLATELET CLUMPS FLAG 0 (0-99); PLATELET COUNT 118 10^3/uL (150-400); RED BLOOD CELL COUNT 3.26 10^6/uL (4.40-6.38); RED CELL DISTRIBUTION WIDTH 14.7 % (11.5-15.2)
[2016-08-31 08:45] LABS: ALANINE AMINOTRANSFERASE 28 IU/L (21-72); ALBUMIN 2.4 g/dL (3.5-5.0); ALKALINE PHOSPHATASE 93 IU/L (38-126); AMYLASE 44 IU/L (30-110); ASPARTATE AMINOTRANSFERASE 30 IU/L (17-59); BILIRUBIN,TOTAL 2.8 mg/dL (0.1-1.4); BILIRUBIN-CONJUGATED 0.7 mg/dL (0.0-0.5); BILIRUBIN-UNCONJUGATED 2.1 mg/dL (0.0-1.1); TOTAL PROTEIN 4.7 g/dL (6.3-8.2)
--- NOTE | 2016-08-31 09:42 | SOAPPROG ---
SOAP Progress Note Assessment/Plan: Assessment: 70 yo M s/p left nephrectomy now with RUQ pain, h/o cholelithiasis US with small stones and wall thickening Lap radha today with Dr. Chen NPO, consent in chart. IV antibiotics OCTOR 09/07/16 09:21 Objective: Vital Signs Temp Pulse Resp BP Pulse Ox 36.6 C 77 18 103/55 L 93 08/31/16 07:37 08/31/16 07:37 08/31/16 07:37 08/31/16 07:37 08/31/16 07:37 Laboratory Results 08/31/16 08:03 08/30/16 04:07 08/30/16 08/31/16 09/01/16 05:59 05:59 05:59 Intake Total 1004 1800 Output Total 4262 9865 Balance -2561 -135 ICD10 Worksheet Patient Problems: Problems Problem Status Onset Cholelithiases Acute Cirrhosis Acute Left renal mass Acute
[2016-08-31] MEDS: LABETALOL HCL 200 MG TAB PO SCH (09:54)
[2016-08-31] MEDS: DOCUSATE SODIUM 100 MG CAP PO SCH ×2 (09:54→21:33)
[2016-08-31] MEDS: TAMSULOSIN HCL 0.4 MG CAP PO SCH (09:54)
[2016-08-31] MEDS: LOSARTAN/HCTZ 50/12.5 1 TAB PO SCH (10:02)
[2016-08-31] MEDS ORDERED: ceFAZolin 2 GM/DEXTROSE 100 ML IV ONE (10:09)
--- NOTE | 2016-08-31 14:28 | HOSPPROG ---
Hospitalist Progress Note Assessment/Plan: 70 yo M POD 4 fro m nephrectomy now w cholecystitis cholecystitis: scans from as early as june show hydropic gall bladder suspect chronic cholecystitis await path portal htn: uncertain cause liver imaging (reviewed by me) does not show cirrhosis hep serologies neg liver biopsy in surgery today splenomegaly: heme malig workup negative and/or ongoing likely 2/2 portal hypertension fluid collection: likely postop related decreased hct noted, stable will be seen in OR pain: increase pain meds post surgery today dispo: inpatinet Subjective: plan for laparoscopic cholecystectomy today. case d/w panfilo herring , gen surgery PA. images reviewed/interpreted by me Objective: Vital Signs Temp Pulse Resp BP Pulse Ox 36.6 C 70 18 100/54 L 91 L 08/31/16 12:10 08/31/16 12:10 08/31/16 12:10 08/31/16 12:10 08/31/16 12:10 Laboratory Results 08/31/16 08:03 08/30/16 04:07 08/30/16 08/31/16 09/01/16 05:59 05:59 05:59 Intake Total 1004 1800 Output Total 3565 1935 300 Balance -2561 -135 -300 - Physical Exam Constitutional: no apparent distress, appears nourished Eyes: PERRL, anicteric sclera Ears, Nose, Mouth, Throat: moist mucous membranes, hearing normal Cardiovascular: regular rate and rhythym, no murmur, rub, or gallop Respiratory: no respiratory distress, no rales or rhonchi Gastrointestinal: soft, non-tender abdomen, other (hypoactive bowel sounds ) Genitourinary: No rosas in urethra Skin: warm, normal color Musculoskeletal: full muscle strength, no muscle tenderness, other (b/l LE edema ) Neurologic: AAOx3, sensation intact bilaterally Psychiatric: interacting appropriately, not anxious ICD10 Worksheet Patient Problems: Problems Problem Status Onset Left renal mass Acute
[2016-08-31] MEDS ORDERED: CEFAZOLIN 2 GM/DEXTROSE/100 ML BAG IV ONE (14:48)
[2016-08-31] MEDS ORDERED: fentaNYL 100 MCG/2 ML INJ ONE ×4 (15:35→19:32)
[2016-08-31] MEDS ORDERED: fentaNYL 100 MCG/2 ML INJ IVP PRN (15:52)
[2016-08-31] MEDS ORDERED: MIDAZOLAM 2 MG/2 ML VIAL ONE (17:00)
[2016-08-31] MEDS ORDERED: BUPIVACAINE 0.5% 30 ML SDV ONE (17:02)
[2016-08-31] MEDS ORDERED: HEPARIN 1000 UNIT/1 ML MDV ONE (17:03)
[2016-08-31] MEDS ORDERED: ceFAZolin 1 GM/5 ML SYR ONE (17:03)
[2016-08-31] MEDS ORDERED: DEXAMETHASONE 4 MG/ML VIAL ONE ×2 (17:08→17:09)
[2016-08-31] MEDS ORDERED: PROPOFOL 200 MG/20 ML VIAL ONE (17:08)
[2016-08-31] MEDS ORDERED: ROCURONIUM 50 MG/5 ML VIAL ONE (17:08)
[2016-08-31] MEDS ORDERED: LIDOCAINE 2% 100 MG/5 ML SYR ONE (17:09)
[2016-08-31] MEDS ORDERED: SKIN ADHESIVE (DERMABOND) 1 EACH TP ONE (17:09)
[2016-08-31] MEDS ORDERED: SUGAMMADEX SODIUM 200 MG/2 ML VIAL IVP ONE ×2 (18:46→18:48)
--- NOTE | 2016-08-31 19:08 | POSTOPPROG ---
Post Op Note Date of Operation: 08/31/16 Surgeon: Mike Chen Graphic Specialist: Alia Owen PA-C, JULIA Saavedra MS, Trinidad Lowe MS Anesthesiologist: Anu Iverson MD Anesthesia: GET(General Endotracheal) Pre-op Diagnosis: cholelithiasis, cholecystis Post-op Diagnosis: same Procedure: laparoscopic cholecystectomy with liver biopsy Findings: liver cirrhosis, distended gallbladder Inf/Abcess present in the surg proc area at time of surgery?: No EBL: 50-100 Complications: none Specimen(s): liver biopsy, gallbladder culture to lab
[2016-08-31] MEDS: HYDROmorphONE/DILAUDID 1 MG/ML SYR IVP PRN (20:38)
[2016-09-01] MEDS: HYDROmorphONE/DILAUDID 1 MG/ML SYR IVP PRN ×2 (04:36→17:41)
[2016-09-01] MEDS: 1/2 NS 1,000 ML IV SCH (04:36)
[2016-09-01 05:46] LABS: HEMATOCRIT 31.3 % (40.0-51.0); HEMOGLOBIN 10.6 g/dL (13.7-17.5); INR 1.3 (0.83-1.16); PROTIME(PATIENT) 16.2 SEC (12.0-15.0)
--- NOTE | 2016-09-01 08:11 | HOSPPROG ---
Hospitalist Progress Note Assessment/Plan: #Chronic cholecystitis: -s/p lap choley. Cirrhosis noted during surgery; path pending. Rec outpatient hepatology #Cirrhosis/portal HTN: cirrhosis noted in surgery. Hep serologies negative, denies Etoh use. Liver path pending. Check TARUN, anti-smooth muscle. Will need FU with GI. #Clear cell renal carcinoma: s/p nephrectomy/ureterectomy (08/26). No vascular/ lymph involvement. Keep close FU with Urology. Still high HORACIO output. Perhaps inflammation from GB contributed?? Repeat imagining per Urology in next few days #Hyperbilirubinemia: improving #Normocytic anemia: stable #Diet: low-fat #DVT ppx: SCDs #Disp: DC once HORACIO output improved. Subjective: tolerating PO without issue Objective: Vital Signs Temp Pulse Resp BP Pulse Ox 36.9 C 88 16 122/73 H 94 09/01/16 07:26 09/01/16 07:26 09/01/16 07:26 09/01/16 07:26 09/01/16 07:26 Microbiology 08/31/16 18:49 Gram Stain - Final Gallbladder - Eswab Laboratory Results 09/01/16 05:17 08/30/16 04:07 08/31/16 09/01/16 09/02/16 05:59 05:59 05:59 Intake Total 1800 1901 Output Total 1934 1865 Balance -135 36 PT 16.2 SEC (12.0-15.0) H 09/01/16 05:17 INR 1.30 (0.83-1.16) H 09/01/16 05:17 - Physical Exam Constitutional: no apparent distress Eyes: PERRL Ears, Nose, Mouth, Throat: moist mucous membranes Cardiovascular: regular rate and rhythym, no murmur, rub, or gallop Respiratory: no respiratory distress, no rales or rhonchi Gastrointestinal: normoactive bowel sounds, tenderness (mild LUQ TTP) Genitourinary: no bladder fullness Skin: warm Musculoskeletal: full muscle strength Neurologic: AAOx3 Psychiatric: interacting appropriately ICD10 Worksheet Patient Problems: Problems Problem Status Onset Left renal mass Acute
[2016-09-01] MEDS: INSULIN REGULAR HUMAN 100 UNIT/ML SC SCH ×4 (08:21→23:10)
--- NOTE | 2016-09-01 08:43 | SOAPPROG ---
SOAP Progress Note Assessment/Plan: Assessment: Post nephrectomy Post cholecystectomy High Horacio drain output Plan: Continue to ambulate as necessary. Diet as tolerated. Doing well, no longer has acute RUQ pain. Bili normalizing Monitor output, will hopefully begin to decrease tonight/tomorrow 09/01/16 08:40 Subjective: Fells better today than yesterday. LUQ discomfort mild and improving Objective: Vital Signs Temp Pulse Resp BP Pulse Ox 36.9 C 88 16 122/73 H 94 09/01/16 07:26 09/01/16 07:26 09/01/16 07:26 09/01/16 07:26 09/01/16 07:26 Microbiology 08/31/16 18:49 Gram Stain - Final Gallbladder - Eswab Laboratory Results 09/01/16 05:17 08/30/16 04:07 08/31/16 09/01/16 09/02/16 05:59 05:59 05:59 Intake Total 1800 1901 Output Total 1935 1865 Balance -135 36 PT 16.2 SEC (12.0-15.0) H 09/01/16 05:17 INR 1.30 (0.83-1.16) H 09/01/16 05:17 Physical Exam - Physical Exam General Appearance: alert, no apparent distress Neck: normal inspection Respiratory: normal breath sounds, No respiratory distress Abdomen: soft, No distended, No guarding (no acute LUQ pain. RUQ discomfort inproving. HORACIO drain appears more serosangious) ICD10 Worksheet Patient Problems: Problems Problem Status Onset Left renal mass Acute
[2016-09-01] MEDS: LOSARTAN/HCTZ 50/12.5 1 TAB PO SCH (09:28)
[2016-09-01] MEDS: LABETALOL HCL 200 MG TAB PO SCH (09:28)
[2016-09-01] MEDS: DOCUSATE SODIUM 100 MG CAP PO SCH ×2 (09:29→20:52)
[2016-09-01] MEDS: TAMSULOSIN HCL 0.4 MG CAP PO SCH (09:29)
[2016-09-01 10:27] LABS: POTASSIUM 4.9 mEq/L (3.5-5.2)
[2016-09-01 10:28] LABS: ANION GAP 5 mEq/L (8-16); CALCIUM 9.3 mg/dL (8.5-10.4); CARBON DIOXIDE 21 mEq/l (22-31); CHLORIDE 105 mEq/L (97-110); CREATININE 1.1 mg/dL (0.7-1.3); GLOMERULAR FILTRATION RATE > 60; GLUCOSE 125 mg/dL (70-100); SODIUM 131 mEq/L (134-144)
--- NOTE | 2016-09-01 11:58 | SOAPPROG ---
SOAP Progress Note Assessment/Plan: Assessment/Plan 70 year old male s/p lap radha, laparotomy with liver bx, recent nephrectomy () May slowly advance diet. Encouraged ambulation. Continue wound care. Liver path pending. S: Had a popsicle last night, eating small amounts of breakfast this morning. Pain well controlled. No nausea, vomiting, fever, chills. O: gen-awake, alert, nad chest-ctab cor-rrr abd-soft, non-distended, incisions cdi, serosanguineous output from javier drain 09/01/16 11:49 Objective: Vital Signs Temp Pulse Resp BP Pulse Ox 36.7 C 98 16 135/71 H 94 09/01/16 11:29 09/01/16 11:29 09/01/16 11:29 09/01/16 11:29 09/01/16 11:29 Microbiology 08/31/16 18:49 Gram Stain - Final Gallbladder - Eswab Laboratory Results 09/01/16 05:17 09/01/16 09:58 08/31/16 09/01/16 09/02/16 05:59 05:59 05:59 Intake Total 1800 1901 Output Total 1935 1865 600 Balance -135 36 -600 PT 16.2 SEC (12.0-15.0) H 09/01/16 05:17 INR 1.30 (0.83-1.16) H 09/01/16 05:17 ICD10 Worksheet Patient Problems: Problems Problem Status Onset Left renal mass Acute
[2016-09-02 05:55] LABS: ALANINE AMINOTRANSFERASE 38 IU/L (21-72); ALBUMIN 2.3 g/dL (3.5-5.0); ALKALINE PHOSPHATASE 114 IU/L (38-126); ANION GAP 5 mEq/L (8-16); ASPARTATE AMINOTRANSFERASE 54 IU/L (17-59); BILIRUBIN,TOTAL 1.5 mg/dL (0.1-1.4); CALCIUM 9.4 mg/dL (8.5-10.4); CARBON DIOXIDE 25 mEq/l (22-31); CHLORIDE 104 mEq/L (97-110); CREATININE 1.1 mg/dL (0.7-1.3); GLOMERULAR FILTRATION RATE > 60; GLUCOSE 98 mg/dL (70-100); POTASSIUM 4.1 mEq/L (3.5-5.2); SODIUM 134 mEq/L (134-144); TOTAL PROTEIN 4.6 g/dL (6.3-8.2)
[2016-09-02] MEDS: INSULIN REGULAR HUMAN 100 UNIT/ML SC SCH ×4 (08:58→21:49)
[2016-09-02] MEDS: DOCUSATE SODIUM 100 MG CAP PO SCH ×2 (09:12→21:36)
[2016-09-02] MEDS: TAMSULOSIN HCL 0.4 MG CAP PO SCH (09:12)
[2016-09-02] MEDS: LOSARTAN/HCTZ 50/12.5 1 TAB PO SCH (09:13)
--- NOTE | 2016-09-02 09:40 | HOSPPROG ---
Hospitalist Progress Note Assessment/Plan: #Hypotension: in setting of BM, SBP 70. Suspect vasovagal. Improved with IVF bolus. #Acute abd/shoulder pain: this morning after PT. Suspect drain tugging with referred pain. Repeat CT with no abscess, afebrile, WBC NL #Chronic cholecystitis: -s/p lap choley. Cirrhosis noted during surgery; path pending. Rec outpatient hepatology #Cirrhosis/portal HTN: cirrhosis noted in surgery. Hep serologies negative, denies Etoh use. Liver path pending. Check TARUN, anti-smooth muscle. Will need FU --made appt with GI at [facility] #Clear cell renal carcinoma: s/p nephrectomy/ureterectomy (08/26). No vascular/ lymph involvement. Keep close FU with Urology. -high drainage output not lessened likely due to ascites. Drain pulled today. likely contributing as seen on CT #Hyperbilirubinemia: improving #Normocytic anemia: stable #Pulmonary nodules: stable per rads since Jun 22. Repeat CT in 6 months #Diet: low-fat #DVT ppx: SCDs #Disp: was planned for DC today, but hypotensive, thus give IVFs and monitor overnight. Subjective: increased pain in abd/shoulder after PT today, sharp. No fever, chills Objective: Vital Signs Temp Pulse Resp BP Pulse Ox 37 C 77 15 143/77 H 92 09/02/16 08:48 09/02/16 08:48 09/02/16 08:48 09/02/16 08:48 09/02/16 08:48 Microbiology 08/31/16 18:49 Gram Stain - Final Gallbladder - Eswab Laboratory Results 09/01/16 05:17 09/02/16 04:42 09/01/16 09/02/16 09/03/16 05:59 05:59 05:59 Intake Total 1901 1300 Output Total 1865 2125 850 Balance 36 -825 -850 PT 16.2 SEC (12.0-15.0) H 09/01/16 05:17 INR 1.30 (0.83-1.16) H 09/01/16 05:17 - Physical Exam Constitutional: other (mild distress 2/2 pain) Eyes: PERRL Ears, Nose, Mouth, Throat: moist mucous membranes, hearing normal Cardiovascular: regular rate and rhythym, no murmur, rub, or gallop, edema (no LE edema) Respiratory: no respiratory distress, no rales or rhonchi Gastrointestinal: normoactive bowel sounds, tenderness (diffusely, guarding, no peritonitis. Drain with serosanginous drainage) Genitourinary: no bladder fullness Skin: warm Musculoskeletal: full muscle strength ICD10 Worksheet Patient Problems: Problems Problem Status Onset Left renal mass Acute
[2016-09-02] MEDS: HYDROmorphONE/DILAUDID 1 MG/ML SYR IVP PRN (09:51)
[2016-09-02] MEDS: HYDROCODONE/APAP 5/325 TAB PO PRN (09:58)
--- NOTE | 2016-09-02 12:40 | PDIAF ---
- Diagnosis Code Status: Full Code - Medication Management Discharge Medications: Medications to Continue on Transfer Cyanocobalamin [Vitamin B12 (*)] 5,000 mcg PO DAILY 07/16/16 [Last Taken ] Herbals/Supplements -Info Only 1 ea PO DAILY 07/16/16 [Last Taken 08/12/16] Labetalol HCl [Trandate 100 mg (*)] 200 mg PO DAILY 07/16/16 [Last Taken 18:00] Losartan/Hctz 50/12.5 [Hyzaar 50/12.5MG (*)] 1 tab PO DAILY 07/16/16 [Last Taken 08/24/16 10:00] Potassium Citrate [Urocit-K 5meq (*)] 15 meq PO BID 07/16/16 [Last Taken ] Pravastatin Sodium [Pravachol] 40 mg PO DAILY 07/16/16 [Last Taken 08/25/16 18: 00] Tamsulosin HCl [Flomax 0.4 MG (*)] 0.8 mg PO DAILY 07/16/16 [Last Taken 05:00] metFORMIN HCL [Glucophage 500 mg (*)] 1,000 mg PO BIDMEAL 07/16/16 [Last Taken 08/25/16 10:00] Hydrocodone/APAP 5/325 [[place] 5/325 (*)] 1 - 2 tab PO Q4HRS PRN #20 tab [Last Taken Unknown] Discharge Medications: Refer to the Discharge Home Medication list for PRN reason. - Orders Services needed: Home Care, Physical Therapy Home Care Face to Face: I certify that this patient was under my care and that I had the required [id number] encounter meeting the encounter requirements on the discharge day. My findings support the fact that the patient is homebound as defined in CMS Chapter 7 Medicare Benefits Manual 30.1.1, The condition of the patient is such that there exists a normal inability to leave home and consequently, leaving home would require a considerable and taxing effort. Diet Recommendation: no restrictions on diet - Follow Up Care Current Providers and Referrals: He Osei MD [Primary Care Provider] - follow up in 2 weeks (Follow up with [facility] for cirrhosis evaluation)
[2016-09-02 12:44] LABS: ANTINUCLEAR ANTIBODIES SCREEN 2.95 UNITS (<1.00)
--- NOTE | 2016-09-02 14:25 | GDS ---
[f rep st] DISCHARGE SUMMARY PREOPERATIVE DIAGNOSIS: Left upper pole renal mass. POSTOPERATIVE DIAGNOSIS: Left renal cell carcinoma, cholecystitis, cirrhosis, ascites. HPI: This is a pleasant 70-year-old man who was seen in our office, evaluated by Dr. Medeiros, and fo und to have a left renal mass concerning for cancer. After a full discussion of options, he was adm itted for left renal nephrectomy. Patient did well postoperatively, but then developed acute cholec ystitis. He underwent a cholecystectomy and liver biopsy by Dr. Chen. Repeat imaging during his s k[place] showed a continued level of ascites in his abdomen felt to be due to patient's cirrhosis. CONDITION AT DISCHARGE: The patient is being discharged home in good condition. FOLLOW UP: The patient is to follow up in our office in 2 weeks. He also is to follow up with [facility]. /[id number]/MODL
[2016-09-02] MEDS ORDERED: NS 1,000 ML IV ONE (15:12)
--- NOTE | 2016-09-02 15:12 | SOAPPROG ---
SOAP Progress Note Assessment/Plan: Assessment/Plan: 70 year old male s/p cholecystectomy and liver bx; left renal cell carcinoma, cirrhosis Continue low-fat diet. Routine wound care. Recommend follow up with gastro to manage liver cirrhosis. Ascites remains despite large amount of serosanguineous drainage. Have urology follow. S: Patient reported feeling abdominal and bilateral axillary pain after walking with PT this morning. There was also pain at the javier drain site. However, pain now controlled. He also has not had any appetite. He reports desaturating while attempting to pass gas, but recovers when he is able to. He has not had a bowel movement yet. O: gen-awake,alert, afebrile chest-ctab, no adventitious lung sounds cor-rrr, no murmurs abd- drainage site and periphery tender to palpation, ascites, serosanguineous drainage; incisions CDI 09/02/16 15:15 Objective: Vital Signs Temp Pulse Resp BP Pulse Ox 36.6 C 98 14 106/55 L 91 L 09/02/16 11:57 09/02/16 11:57 09/02/16 11:57 09/02/16 11:57 09/02/16 11:57 Microbiology 08/31/16 18:49 Gram Stain - Final Gallbladder - Eswab Laboratory Results 09/01/16 05:17 09/02/16 04:42 09/01/16 09/02/16 09/03/16 05:59 05:59 05:59 Intake Total 1901 1300 Output Total 1865 2125 1050 Balance 36 -825 -1050 PT 16.2 SEC (12.0-15.0) H 09/01/16 05:17 INR 1.30 (0.83-1.16) H 09/01/16 05:17 ICD10 Worksheet Patient Problems: Problems Problem Status Onset Left renal mass Acute
[2016-09-02] MEDS: LABETALOL HCL 200 MG TAB PO SCH (16:36)
[2016-09-02 17:25] LABS: HEMATOCRIT 33.1 % (40.0-51.0); HEMOGLOBIN 11.1 g/dL (13.7-17.5)
[2016-09-02] MEDS: MAGNESIUM HYDROXIDE 30 ML UDCUP PO PRN (21:36)
[2016-09-03 05:24] LABS: HEMATOCRIT 32.5 % (40.0-51.0); HEMOGLOBIN 11.1 g/dL (13.7-17.5); MEAN CELL HEMOGLOBIN 30.5 pg (27.9-34.1); MEAN CELL HEMOGLOBIN CONCENTR. 34.2 g/dL (32.4-36.7); MEAN CELL VOLUME 89.3 fL (81.5-99.8); RED BLOOD CELL COUNT 3.64 10^6/uL (4.40-6.38); RED CELL DISTRIBUTION WIDTH 14.7 % (11.5-15.2)
[2016-09-03 05:29] LABS: ANION GAP 4 mEq/L (8-16); CALCIUM 9.2 mg/dL (8.5-10.4); CARBON DIOXIDE 25 mEq/l (22-31); CHLORIDE 106 mEq/L (97-110); CREATININE 1.1 mg/dL (0.7-1.3); GLOMERULAR FILTRATION RATE > 60; GLUCOSE 103 mg/dL (70-100); SODIUM 135 mEq/L (134-144)
[2016-09-03 07:28] VITALS: RESP 16
[2016-09-03] MEDS: DOCUSATE SODIUM 100 MG CAP PO SCH (09:36)
[2016-09-03] MEDS: TAMSULOSIN HCL 0.4 MG CAP PO SCH (09:36)
[2016-09-03] MEDS: INSULIN REGULAR HUMAN 100 UNIT/ML SC SCH (10:03)
--- NOTE | 2016-09-03 11:06 | PDIAF ---
- Diagnosis Code Status: Full Code - Medication Management Discharge Medications: Medications to Continue on Transfer Cyanocobalamin [Vitamin B12 (*)] 5,000 mcg PO DAILY 07/16/16 [Last Taken ] Herbals/Supplements -Info Only 1 ea PO DAILY 07/16/16 [Last Taken 08/12/16] Potassium Citrate [Urocit-K 5meq (*)] 15 meq PO BID 07/16/16 [Last Taken ] Pravastatin Sodium [Pravachol] 40 mg PO DAILY 07/16/16 [Last Taken 08/25/16 18: 00] Tamsulosin HCl [Flomax 0.4 MG (*)] 0.8 mg PO DAILY 07/16/16 [Last Taken 05:00] metFORMIN HCL [Glucophage 500 mg (*)] 1,000 mg PO BIDMEAL 07/16/16 [Last Taken 08/25/16 10:00] Hydrocodone/APAP 5/325 [Grace 5/325 (*)] 1 - 2 tab PO Q4HRS PRN #20 tab [Last Taken Unknown] Discharge Medications: Refer to the Discharge Home Medication list for PRN reason. - Orders Services needed: Home Care, Registered Nurse, Physical Therapy Home Care Face to Face: I certify that this patient was under my care and that I had the required [id number] encounter meeting the encounter requirements on the discharge day. My findings support the fact that the patient is homebound as defined in CMS Chapter 7 Medicare Benefits Manual 30.1.1, The condition of the patient is such that there exists a normal inability to leave home and consequently, leaving home would require a considerable and taxing effort. Diet Recommendation: no restrictions on diet, sodium restricted, fluid restriction (use comment for amount) (2 L fluid restriction) - Follow Up Care Current Providers and Referrals: He Osei MD [Primary Care Provider] - follow up in 2 weeks (Follow up with [facility] for cirrhosis evaluation)
[2016-09-03 11:58] VITALS: BP 114/63; PULSE 106; TEMP 97.7; O2SAT 94
--- NOTE | 2016-09-03 13:46 | SOAPPROG ---
SOAP Progress Note Assessment/Plan: Assessment/Plan: 70 year old male s/p cholecystectomy and liver bx; left renal cell carcinoma, cirrhosis Encouraged to start eating and to continue walking around. Awaiting path results. S: Pain is well controlled. Did have an episode of hypotension during the night while bearing down in order to pass gas but was fine after 1 L IV fluids were given. Still has a low appetite. Denies any nausea, vomiting, fevers. O: awake,alert, comfortable in chair ctab rrr incisions CDI, no erythema or drainage, +BS 09/03/16 13:43 09/03/16 13:48 Objective: Vital Signs Temp Pulse Resp BP Pulse Ox 36.5 C 106 H 16 114/63 94 09/03/16 11:58 09/03/16 11:58 09/03/16 11:58 09/03/16 11:58 09/03/16 11:58 Microbiology 08/31/16 18:49 Gram Stain - Final Gallbladder - Eswab Laboratory Results 09/03/16 04:45 09/03/16 04:45 09/02/16 09/03/16 09/04/16 05:59 05:59 05:59 Intake Total 1300 1500 Output Total 7519 1902 Balance -825 -402 PT 16.2 SEC (12.0-15.0) H 09/01/16 05:17 INR 1.30 (0.83-1.16) H 09/01/16 05:17 ICD10 Worksheet Patient Problems: Problems Problem Status Onset Cholelithiases Acute Cirrhosis Acute Left renal mass Acute
--- NOTE | 2016-09-03 15:04 | HOSPPROG ---
Hospitalist Progress Note Assessment/Plan: #Hypotension:resolved. in setting of bearing down for BM; suspect vasovagal. Improved with IVF bolus. Hold home BP meds until FU with PCP for recheck #Acute abd/shoulder pain: none since yesterday. drain now out. Repeat CT with no abscess, afebrile, WBC NL #Chronic cholecystitis: -s/p lap choley. Cirrhosis noted during surgery; path pending. Rec outpatient hepatology #Cirrhosis/portal HTN: cirrhosis noted in surgery. Hep serologies negative, denies Etoh use. Liver path pending. Check TARUN, anti-smooth muscle. Will need FU --made appt with GI at [facility] #Clear cell renal carcinoma: s/p nephrectomy/ureterectomy (08/26). No vascular/ lymph involvement. Keep close FU with Urology. -high drainage output not lessened likely due to ascites. Drain pulled #Hyperbilirubinemia: improving #Normocytic anemia: stable #Pulmonary nodules: stable per rads since Jun 22. Repeat CT in 6 months #Diet: low-fat #DVT ppx: SCDs #Disp:ok from medicine standpoint for PA Time spent on visit: 50 min bedside with pt and discussing follow up plan, BP medications and pending labs/studies Subjective: no dizziness. No abd pain today Objective: Vital Signs Temp Pulse Resp BP Pulse Ox 36.5 C 106 H 16 114/63 94 09/03/16 11:58 09/03/16 11:58 09/03/16 11:58 09/03/16 11:58 09/03/16 11:58 Microbiology 08/31/16 18:49 Gram Stain - Final Gallbladder - Eswab Laboratory Results 09/03/16 04:45 09/03/16 04:45 09/02/16 09/03/16 09/04/16 05:59 05:59 05:59 Intake Total 1300 1500 Output Total 2125 1902 Balance -825 -402 PT 16.2 SEC (12.0-15.0) H 09/01/16 05:17 INR 1.30 (0.83-1.16) H 09/01/16 05:17 - Physical Exam Constitutional: no apparent distress Eyes: PERRL Ears, Nose, Mouth, Throat: moist mucous membranes, hearing normal Cardiovascular: regular rate and rhythym, no murmur, rub, or gallop, edema ( trace pedal edema) Respiratory: no respiratory distress, no rales or rhonchi Gastrointestinal: other (surgical and drain incisions C/D/I. No TTP, +BS) Musculoskeletal: full muscle strength Neurologic: AAOx3 Lymph, Heme, Immunologic: no cervical LAD ICD10 Worksheet Patient Problems: Problems Problem Status Onset Cholelithiases Acute Cirrhosis Acute Left renal mass Acute
== END 2016-09-03 16:42 | disposition home health service (06) | DRG 657 ==
LOC: F1N 05:37
PROVIDERS: ADMIT Specialist; ATTEND Specialist
DX: C64.2 Malignant neoplasm of left kidney, except renal pelvis (principal); K80.10 Calculus of gallbladder with chronic cholecystitis without obstruction; K74.69 Other cirrhosis of liver; K76.6 Portal hypertension; R18.8 Other ascites; R16.1 Splenomegaly, not elsewhere classified; E80.4 Gilbert syndrome; D64.9 Anemia, unspecified; N40.0 Benign prostatic hyperplasia without lower urinary tract symptoms; K57.30 Diverticulosis of large intestine without perforation or abscess without bleeding; E66.01 Morbid (severe) obesity due to excess calories; Z68.36 Body mass index [BMI] 36.0-36.9, adult; I10 Essential (primary) hypertension; E11.9 Type 2 diabetes mellitus without complications; Z87.442 Personal history of urinary calculi
CPT/HCPCS: 86255-90; 97110-GP; 97116-GP; 97162-GP; 97164-GP; 97166-GO; 97168-GO; 97530-GP; 97535-GO; J0690; J1100; J1170; J2001; J2250; J2405; J2704; J3010

== ENCOUNTER 2016-09-21 12:05 | Observation (INO) | payer OTHER ==
[2016-09-21 12:27] VITALS: RESP 16
--- NOTE | 2016-09-21 13:20 | EDPHY ---
H & P Stated Complaint: dx cirrhosis/paracentesis fluid removal thurs/sent by doctor Time Seen by Provider: 09/21/16 12:56 HPI/ROS: Chief Complaint: Worsening swelling HPI: 70-year-old male who is status post left nephrectomy August 26, cholecystectomy August 31 with the discharge from hospital September 03 with a diagnosis of a new cirrhosis of unknown etiology. He is currently being worked up for hemochromatosis. Patient was seen abdominal on September 16 by GREGORIA Velazquez. At that time he had a pleurocentesis of 1000 mL. He was also started on diuretics at that time. Patient the has been having worsening edema and both his abdomen and bilateral lower extremities. He had blood work done yesterday and was noted to have a today to have an increased creatinine which is presenting graft mostly from increasing his diuretic dose. Patient was sent in for further evaluation of the etiology of swelling and further plan of treatment. He denies any shortness of breath. His having persistent abdominal pain since his surgery. No fevers or chills. No nausea or vomiting. No diarrhea or constipation. No urinary symptoms. ROS: 10 point Review of Systems is negative except as noted in the HPI. 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 Trigeminal neuralgia Medications: Lasix 20 mg daily Spironolactone 50 mg daily Tamsulosin Senna Allergies: No known drug allergies Social History: No smoking, no alcohol, no recreational drug use Family History: non-contributory Physical Exam: Gen: Awake, Alert, No Distress HEENT: Nose: no rhinorrhea Eyes: PERRLA, EOMI, mild icterus Mouth: Moist mucosa Neck: Supple, no JVD Chest: nontender, lungs clear to auscultation Heart: S1, S2 normal, no murmur Abd: Distended, not tympanitic, healing surgical incisions Soft, mild diffuse tenderness, no guarding Back: no CVA tenderness, no midline tenderness Ext: 3+ edema, non-tender Skin: no rash Neuro: CN II-XII intact, Sensation grossly intact, Strength 5/5 in bilateral upper and lower extremities - Personal History Current Tetanus/Diphtheria Vaccine: Yes - Medical/Surgical History Hx Asthma: No Hx Chronic Respiratory Disease: No Hx Diabetes: Yes Hx Cardiac Disease: No Hx Renal Disease: Yes Hx Cirrhosis: Yes Hx Alcoholism: No Hx HIV/AIDS: No Hx Splenectomy or Spleen Trauma: No Other PMH: diabetes/bph/kidney issues/l knee scope/kidney stones/vasectomy/ibs choly/l kidney removed cirrhosis of the liver - Social History Smoking Status: Never smoked Constitutional: Initial Vital Signs Temperature (C) 36.8 C 09/21/16 12:24 Heart Rate 87 09/21/16 12:24 Respiratory Rate 16 09/21/16 12:24 Blood Pressure 116/70 09/21/16 12:24 O2 Sat (%) 96 09/21/16 12:24 O2 Delivery Mode Room Air Allergies/Adverse Reactions: No Known Allergies Allergy (Verified 09/21/16 12:23) Home Medications: Medication Instructions Recorded Cyanocobalamin [Vitamin B12 (*)] 5,000 mcg PO DAILY 07/16/16 Tamsulosin HCl [Flomax 0.4 MG (*)] 0.8 mg PO DAILY 07/16/16 Lasix 09/21/16 Spironolactone 09/21/16 Medical Decision Making ED Course/Re-evaluation: Complex medical patient presenting with worsening ascites and a edema with a new diagnosis of cirrhosis. Worsening creatinine on diuretics. Patient will not be able to have diuretics increased. I have discussed with Shakila Weir , hospitalist. Will admit under Dr. Beach for further evaluation. I have sent blood. She is requesting abdominal ultrasound to evaluate for ascites.. Departure - Departure Disposition: [facility] Inpatient Acute Clinical Impression: Cirrhosis, Ascites, Renal insufficiency Condition: Fair Referrals: He Osei MD [Primary Care Provider] - As per Instructions
[2016-09-21 13:44] LABS: % IMMATURE GRANULYOCYTES 0.3 % (0.0-1.1); ABSOLUTE IMMATURE GRANULOCYTES 0.01 10^3/uL (0.00-0.10); ADD DIFF? NO; ADD MORPH? NO; ADD SCAN? NO; ATYPICAL LYMPHOCYTE FLAG 20 (0-99); FRAGMENT RBC FLAG 0 (0-99); HEMATOCRIT 33.9 % (40.0-51.0); HEMOGLOBIN 11.3 g/dL (13.7-17.5); LEFT SHIFT FLG 10 (0-99); LIPEMIA HEMOLYSIS FLAG 80 (0-99); MEAN CELL HEMOGLOBIN 30.9 pg (27.9-34.1); MEAN CELL HEMOGLOBIN CONCENTR. 33.3 g/dL (32.4-36.7); MEAN CELL VOLUME 92.6 fL (81.5-99.8); MEAN PLATELET VOLUME 10.3 fL (8.7-11.7); PLATELET CLUMPS FLAG 0 (0-99); PLATELET COUNT 97 10^3/uL (150-400); RED BLOOD CELL COUNT 3.66 10^6/uL (4.40-6.38)
[2016-09-21 14:21] LABS: ALANINE AMINOTRANSFERASE 29 IU/L (21-72); ALBUMIN 2.8 g/dL (3.5-5.0); ALKALINE PHOSPHATASE 90 IU/L (38-126); ANION GAP 8 mEq/L (8-16); ASPARTATE AMINOTRANSFERASE 27 IU/L (17-59); BILIRUBIN,TOTAL 2.9 mg/dL (0.1-1.4); BILIRUBIN-CONJUGATED 0.3 mg/dL (0.0-0.5); BILIRUBIN-UNCONJUGATED 2.6 mg/dL (0.0-1.1); CALCIUM 9.7 mg/dL (8.5-10.4); CARBON DIOXIDE 25 mEq/l (22-31); CHLORIDE 106 mEq/L (97-110); CREATININE 1.3 mg/dL (0.7-1.3); GLOMERULAR FILTRATION RATE 55; GLUCOSE 99 mg/dL (70-100); POTASSIUM 3.6 mEq/L (3.5-5.2); SODIUM 139 mEq/L (134-144); TOTAL PROTEIN 5.4 g/dL (6.3-8.2)
[2016-09-21] MEDS ORDERED: ONDANSETRON 4 MG/2 ML VIAL IVP PRN (16:07)
[2016-09-21] MEDS ORDERED: ACETAMINOPHEN 325 MG TAB PO PRN (16:07)
[2016-09-21] MEDS ORDERED: ONDANSETRON DISINTEGRATING 4 MG TAB PO PRN (16:07)
--- NOTE | 2016-09-21 16:39 | GHP ---
[f rep st] HISTORY AND PHYSICAL DATE OF ADMISSION: 09/21/2016 CHIEF COMPLAINT: Lower extremity edema and abdominal distention. HISTORY OF PRESENT ILLNESS: This is a 70-year-old male who was recently hospitalized toward the end of August. He was admitted for a nephrectomy for renal cell carcinoma, but then developed also chol ecystitis at that time and underwent cholecystectomy. During surgery he was noted to have cirrhosis . He followed up with Gastroenterology just a week ago and had significant lower extremity edema an d ascites. He underwent therapeutic paracentesis about a week ago with good results although they o nly took a liter out. He felt there was more fluid in there. He was started on diuretics but jose nued with increasing abdominal distention and swelling. Creatinine yesterday was drawn, it was 1.5 which is slightly above his baseline. Today it is 1.3. He is being admitted for further diuresis. He denies any fevers or chills. No chest pain or shortness of breath. REVIEW OF SYSTEMS: A 10-point review of systems was obtained and it was otherwise negative. PAST MEDICAL HISTORY: 1. Renal cell carcinoma status post recent left nephrectomy. 2. History of recent cholecystitis. 3. Cirrhosis of uncertain etiology, being worked by Gastroenterology. 4. Type 2 diabetes, diet controlled. 5. History of hypertension. 6. Gilbert's. MEDICATIONS: Reviewed, include: 1. Lasix 20 mg. 2. Aldactone 50 mg. SOCIAL HISTORY: No smoking or alcohol. FAMILY HISTORY: Reviewed and not contributory. PHYSICAL EXAMINATION: VITAL SIGNS: Afebrile, blood pressure is 126/78, heart rate is 68, oxygen sa turation 98% on room air. GENERAL: The patient is well developed, in no apparent distress. HEENT: Nonicteric sclerae. Extraocular movements intact. Moist mucous membranes. NECK: Supple. No thy romegaly. Chest. NECK: Supple. No thyromegaly. LUNGS: Good effort. Clear to auscultation bila terally. CARDIOVASCULAR: Regular rate and rhythm. No murmurs or gallops. ABDOMEN: Distended but soft with a moderate amount of ascites. EXTREMITIES: Left, about 2+ edema; right 1+ edema. NEURO LOGIC: Alert and oriented x3. Moving all 4 extremities equally. PSYCH: Normal affect. LABORATORY DATA: Creatinine is 1.3. CBC that showed a hemoglobin of 11 and platelets are 97. Ultr asound shows moderate ascites. ASSESSMENT: This is a 70-year-old male with a new diagnosis of cirrhosis and worsening ascites and lower extremity edema. PLAN: 1. Cirrhosis with fluid overload: We will do IV diuretics with close monitoring of his creatinine. 2. Ascites: We will get a paracentesis. 3. Left greater than right edema. We will get a lower extremity ultrasound. 4. Recent nephrectomy. 5. Admission. The patient will be admitted under full admission status. Case discussed with the E R physician. Old records are reviewed and summarized in the HPI. /[id number]/MODL
[2016-09-21] MEDS: FUROSEMIDE 40 MG/4 ML VIAL IVP SCH (17:19)
[2016-09-22 05:31] LABS: % IMMATURE GRANULYOCYTES 0.3 % (0.0-1.1); ABSOLUTE IMMATURE GRANULOCYTES 0.01 10^3/uL (0.00-0.10); ADD DIFF? NO; ADD MORPH? NO; ADD SCAN? NO; ATYPICAL LYMPHOCYTE FLAG 0 (0-99); FRAGMENT RBC FLAG 0 (0-99); HEMOGLOBIN 10.8 g/dL (13.7-17.5); LEFT SHIFT FLG 0 (0-99); LIPEMIA HEMOLYSIS FLAG 80 (0-99); MEAN CELL HEMOGLOBIN 30.7 pg (27.9-34.1); MEAN CELL HEMOGLOBIN CONCENTR. 32.7 g/dL (32.4-36.7); MEAN CELL VOLUME 93.8 fL (81.5-99.8); PLATELET CLUMPS FLAG 10 (0-99); PLATELET COUNT 87 10^3/uL (150-400); RED BLOOD CELL COUNT 3.52 10^6/uL (4.40-6.38); RED CELL DISTRIBUTION WIDTH 16.1 % (11.5-15.2)
[2016-09-22 05:41] LABS: ALANINE AMINOTRANSFERASE 29 IU/L (21-72); ALBUMIN 2.6 g/dL (3.5-5.0); ALKALINE PHOSPHATASE 85 IU/L (38-126); ANION GAP 7 mEq/L (8-16); ASPARTATE AMINOTRANSFERASE 30 IU/L (17-59); BILIRUBIN,TOTAL 2.9 mg/dL (0.1-1.4); CALCIUM 9.6 mg/dL (8.5-10.4); CARBON DIOXIDE 26 mEq/l (22-31); CHLORIDE 106 mEq/L (97-110); CREATININE 1.3 mg/dL (0.7-1.3); GLOMERULAR FILTRATION RATE 55; GLUCOSE 82 mg/dL (70-100); POTASSIUM 3.7 mEq/L (3.5-5.2); SODIUM 139 mEq/L (134-144); TOTAL PROTEIN 5.3 g/dL (6.3-8.2)
[2016-09-22 05:47] LABS: BILIRUBIN-CONJUGATED 0.4 mg/dL (0.0-0.5); BILIRUBIN-UNCONJUGATED 2.5 mg/dL (0.0-1.1)
[2016-09-22 05:48] LABS: INR 1.33 (0.83-1.16); PROTIME(PATIENT) 16.5 SEC (12.0-15.0)
[2016-09-22 05:49] LABS: APTT 32.9 SEC (23.0-38.0)
[2016-09-22 08:42] VITALS: BP 108/78; PULSE 75; TEMP 98.2; O2SAT 93
[2016-09-22] MEDS: FUROSEMIDE 40 MG/4 ML VIAL IVP SCH (08:47)
[2016-09-22] MEDS ORDERED: SPIRONOLACTONE 50 MG TAB PO SCH (09:00)
[2016-09-22] MEDS ORDERED: SPIRONOLACTONE 25 MG TAB PO SCH (09:00)
[2016-09-22] MEDS ORDERED: ENOXAPARIN 40 MG/0.4 ML SYR SC SCH (09:00)
[2016-09-22] MEDS ORDERED: DOCUSATE SODIUM 100 MG CAP PO SCH (09:00)
[2016-09-22] MEDS ORDERED: TAMSULOSIN HCL 0.4 MG CAP PO SCH (09:00)
[2016-09-22] MEDS ORDERED: NA BICARBONATE 50 MEQ/50 ML VIAL ONE (11:35)
--- NOTE | 2016-09-22 13:07 | HOSPPROG ---
Hospitalist Progress Note Assessment/Plan: 70 y/o male with newly diagnosed cirrhosis of uncertain etiology presenting with #worsening anasarca and ascites -cont diuretics -await paracentesis and GI consult later today #H/O RCC s/p nephrectomy -monitor renal function #HTN #DM2 #Normocytic Anemia Subjective: reports improved swelling legs. continues to have abd bloating. no fevers or chills Objective: Vital Signs Temp Pulse Resp BP Pulse Ox 36.8 C 75 16 108/78 93 09/22/16 08:00 09/22/16 08:00 09/22/16 08:00 09/22/16 08:00 09/22/16 08:00 Laboratory Results 09/22/16 04:45 09/22/16 04:45 09/21/16 09/22/16 09/23/16 05:59 05:59 05:59 Intake Total 10 Balance 10 PT 16.5 SEC (12.0-15.0) H 09/22/16 04:45 INR 1.33 (0.83-1.16) H 09/22/16 04:45 - Physical Exam Constitutional: no apparent distress, appears nourished, not in pain Ears, Nose, Mouth, Throat: moist mucous membranes, hearing normal, ears appear normal Cardiovascular: regular rate and rhythym, no murmur, rub, or gallop, edema ( mild leg edema) Respiratory: no respiratory distress, no rales or rhonchi, clear to auscultation Gastrointestinal: normoactive bowel sounds, soft, non-tender abdomen, distension , No foreman's sign, No guarding Genitourinary: no bladder fullness, no bladder tenderness, no renal bruits Neurologic: AAOx3, sensation intact bilaterally ICD10 Worksheet Patient Problems: Problems Problem Status Onset Ascites Acute Cirrhosis Acute Renal insufficiency Acute Cholelithiases Acute Left renal mass Acute
--- NOTE | 2016-09-22 14:13 | GCON ---
[f rep st] CONSULTATION DATE OF CONSULTATION: 09/22/2016 REFERRING PHYSICIAN: Luc Kimble DO CHIEF COMPLAINT: Ascites. HISTORY OF PRESENT ILLNESS: I am asked to see this patient in consultation by Dr. Kimble for chief c omplaint of ascites. The patient is a 70-year-old, recently seen by Dr. Schroeder in hepatology for n ew diagnosis of cirrhosis. The patient has a complex past medical history, initially seen in las t year, as he relocated to this area, with history of Webb's and colon polyps. Underwent an uppe r and lower endoscopy by Dr. Keys with removal of several polyps, some hyperplastic, some adenoma. Large polyp at the IC valve was not a polyp. Upper endoscopy showed irregular Z-line, but did not c onfirm Webb's. He was noted to have eosinophilia. He then was worked up for a renal mass, shown to be renal carcinoma, underwent resection last month. This was complicated by cholecystitis, and underwent cholecystectomy, and was noted to have a cirrhotic-looking liver. This was biopsied, show ing macro and microvesicular steatosis. Patient had complications with ascites with leaking of asci vel from the surgical sites. Was seen by Dr. Schroeder 2 weeks ago. It was thought that his cause of his cirrhosis was from BULLOCK. He did have a mildly positive TARUN, but that was thought to be not ind icative of autoimmune, but further workup is in progress. The patient underwent a therapeutic parac entesis with ascites and had improvement in his ascites afterward. Evaluation was consistent with p ortal hypertension, and he did not have evidence of SBP. He was placed on low dose Lasix and Aldact one, but did notice some increase in his creatinine. The patient complained of increasing recurrent ascites and lower extremity edema that was asymmetric, so he was requested to go to the emergency r oom. Ultrasound of the legs did not show any DVT. Ultrasound showed ascites. He was given Lasix I V. He underwent paracentesis this morning, but was noted to have only minimal ascites, only 10 cc w ere taken out for analysis. Overall, patient is feeling better. No evidence of bleeding. No signi ficant abdominal pain. ALLERGIES: No reported allergies. HOME MEDICATIONS: Flomax, Colace, Lasix, and spironolactone. PAST MEDICAL HISTORY: Notable for renal cell carcinoma status post left nephrectomy, history of cho lecystitis, status post cholecystectomy, cirrhosis thought to be BULLOCK, ascites, type 2 diabetes, hyp ertension, and Gilbert disease. SOCIAL HISTORY: Patient denies alcohol use. FAMILY HISTORY: Negative for liver disease. REVIEW OF SYSTEMS: I have performed a complete review of systems which was negative except for the pertinent positives and negatives noted above in the HPI. PHYSICAL EXAM: VITAL SIGNS: Afebrile at 36.8, BP 108/78, pulse 75. CONSTITUTIONAL: Patient is al ert and oriented x3. EYE EXAM: No scleral icterus. HEENT: No mouth lesions. CARDIAC: Regular r ate and rhythm. CHEST: Clear to auscultation bilaterally. ABDOMEN: Obese, positive bowel sounds. Soft, nontender. Unable to assess for hepatosplenomegaly due to his large abdomen. NEUROLOGIC: No asterixis. SKIN: He has some healing scars on the abdomen, but no rashes. LABORATORY DATA: BUN and creatinine are 13 and 1.3, alkaline phosphatase 85, AST 30, ALT 29, total albumin 2.9, lipase normal at 108. Pro time is 16.5. INR 1.33. White count 3, hematocrit 33, plat elets 87. DVT ultrasound shows no lower extremity DVT. Attempted paracentesis showed only trace as cites. Paracentesis is pending. ASSESSMENT: 1. Cirrhosis with steatosis, thought most consistent with nonalcoholic steatohepatitis, especially in this patient who likely has metabolic syndrome, although workup with SPEP is pending. Prior hepa titis A, B, and C was negative. Anti smooth muscle antibody was negative and TARUN was positive at 1: 60. 2. Ascites, requiring paracentesis with some recurrence, but now has responded well to IV Lasix, an d on ultrasound today has only trace ascites, however, tap was obtained to rule out spontaneous bact erial peritonitis, I think it is unlikely. 3. Lower extremity edema, which is asymmetric, however, no DVT seen. PLAN: 1. The patient should maintain on Lasix. Will need to monitor his Lasix and Aldactone, but will ne ed to monitor his renal function and potassium closely. 2. Discussed importance of low-sodium diet, which patient is doing. 3. The patient is to follow up with Dr. Schroeder and complete his workup for underlying liver diseas e. If his ascites recurs, could consider an ultrasound with Doppler flow, if does not respond as ex pected to diuretics. Thank you for this consult. /[id number]/MODL
--- NOTE | 2016-09-22 15:43 | GDS ---
[f rep st] DISCHARGE SUMMARY DISCHARGE DIAGNOSES: 1. Cirrhosis, likely due to nonalcoholic steatohepatitis. 2. Anasarca. 3. History of nephrectomy for renal cell carcinoma. CONSULTANTS: GREGORIA Ko. HOSPITAL COURSE AND STAY BY PROBLEM: 1. Cirrhosis, likely due to BULLOCK with worsening edema: The patient was admitted to the hospital wh ere he was continued on Aldactone and treated with IV furosemide. During the patient's short stay h e lost 2 kg of water weight. Abdominal paracentesis was attempted on 09/22/2016, but was only found to have a scant amount of ascites and a diagnostic tap was done. 2. On date of discharge patient states he is feeling better with improved swelling in his legs. He denies any fevers, chills, or abdominal pain. 3. Pertinent labs and studies done this hospital stay: Lower extremity Doppler ultrasound on 09/21 was negative for DVT. Diagnostic paracentesis done 09/22/2016. PHYSICAL EXAM: On date of discharge, please refer to progress note in [facility]. DISCHARGE MEDICATIONS: 1. Please refer to discharge medication reconciliation in [facility] for full details. Below is a pr eliminary list. 2. New medications on hospital discharge: Aldactone 50 mg daily, Lasix 20 mg daily. 3. All other home medications were continued as usual home dosages. DISCHARGE INSTRUCTIONS: The patient will be discharged from the hospital. He should follow up with Dr. Schroeder as directed. He should have a repeat metabolic panel done in 1 week to ensure he is to lerating p.o. diuretics. If he does continue to swell it would be reasonable to increase both his f urosemide and Aldactone, as well as consider a duplex abdominal ultrasound to evaluate for portal ve in thrombosis. /[id number]/MODL
== END 2016-09-22 16:16 | disposition home or self-care (01) ==
LOC: INTOOBSV 13:37 → F3E 14:32
PROVIDERS: ADMIT Internal Medicine; ATTEND Internal Medicine
PROC: 0W9G3ZZ Drainage of Peritoneal Cavity, Percutaneous Approach (ICD-10-PCS; principal; 2016-09-22)
DX: K75.81 Nonalcoholic steatohepatitis (NASH) (principal); K74.69 Other cirrhosis of liver; E11.9 Type 2 diabetes mellitus without complications; N40.0 Benign prostatic hyperplasia without lower urinary tract symptoms; Z90.5 Acquired absence of kidney; I10 Essential (primary) hypertension
CPT/HCPCS: 49083; 76705; 93971; 97165; 99285; G0378; J1650

== ENCOUNTER → 2016-11-03 | Outpatient (CLI) | payer OTHER | LOC: CIMAGING 14:56 | PROVIDERS: ATTEND Internal Medicine | DX: R05 Cough (principal) | CPT/HCPCS: 71020-PO ==

== ENCOUNTER 2016-12-01 16:40 | Inpatient (IN) | payer OTHER ==
--- NOTE | 2016-12-01 17:36 | EDPHY ---
H & P Stated Complaint: found blood clot in lungs by ct Time Seen by Provider: 12/01/16 17:13 HPI/ROS: Chief Complaint: Abnormal CT scan HPI: 70-year-old male with a history of left renal carcinoma diagnosed in June status post nephrectomy in August, stage IV non alcoholic liver cirrhosis had a routine screening CT scan of his chest abdomen and pelvis is ordered by Dr. Castro this morning. Patient was called at home and informed that he was positive for a PE and was instructed to come to the emergency depart for further evaluation. Patient has not had any chest pain, no shortness of breath, no leg pain or swelling. No fevers or chills or cough. No nausea vomiting diarrhea. He has been in his usual state of pretty poor health secondary to his liver disease but has not had any significant changes recently. ROS: 10 point Review of Systems is negative except as noted in the HPI. PMH: Left renal cancer status post nephrectomy Hypertension, nonalcoholic cirrhosis, stage IV Diabetes, Splenomegaly Medications: Tamsulosin, Lasix, spironolactone Allergies: No known drug allergies Social History: No smoking, no alcohol, no recreational drug use Family History: non-contributory Physical Exam: Gen: Awake, Alert, No Distress HEENT: Nose: no rhinorrhea Eyes: PERRLA, EOMI Mouth: Moist mucosa Neck: Supple, no JVD Chest: nontender, lungs clear to auscultation Heart: S1, S2 normal, no murmur Abd: Soft, distended, ascitic, no guarding Back: no CVA tenderness, no midline tenderness Ext: no edema, non-tender Skin: no rash Neuro: CN II-XII intact, Sensation grossly intact, Strength 5/5 in bilateral upper and lower extremities - Personal History Current Tetanus/Diphtheria Vaccine: Yes Current Tetanus Diphtheria and Acellular Pertussis (TDAP): Yes - Medical/Surgical History Hx Asthma: No Hx Chronic Respiratory Disease: No Hx Diabetes: Yes Hx Cardiac Disease: No Hx Renal Disease: Yes Hx Cirrhosis: Yes Hx Alcoholism: No Hx HIV/AIDS: No Hx Splenectomy or Spleen Trauma: No Other PMH: diabetes type 2 but diet controled now/bph/kidney CA/Left knee scope/ Left kidney stones/vasectomy/ibs/Left kidney removed, cirrhosis of the liver reason unknown. Cholicystectomy 2017, C2-C3 stenosis. - Social History Smoking Status: Never smoked Constitutional: Initial Vital Signs Temperature (C) 36.5 C 12/01/16 16:46 Heart Rate 79 12/01/16 16:46 Respiratory Rate 16 12/01/16 16:46 Blood Pressure 107/67 12/01/16 16:46 O2 Sat (%) 95 12/01/16 16:46 O2 Delivery Mode Room Air Allergies/Adverse Reactions: No Known Allergies Allergy (Verified 09/21/16 12:23) Home Medications: Medication Instructions Recorded Docusate Sodium [Colace 100 MG (*)] 100 mg PO DAILY 09/21/16 Furosemide [Lasix 20 MG (*)] 20 mg PO DAILY 09/21/16 Spironolactone [Aldactone 25 MG 50 mg PO DAILY 09/21/16 (*)] Tamsulosin HCl [Flomax 0.4 MG (*)] 0.4 mg PO DAILY 09/21/16 Medical Decision Making ED Course/Re-evaluation: 70-year-old male presenting with an asymptomatic PE on routine cancer screening CT today. I have ordered an ECG and labs. I have discussed with Dr. Wesley Gar, hospitalist. He will admit to his service for further evaluation. - Data Points Laboratory Results: Laboratory Results 12/01/16 17:10 12/01/16 17:10 12/01/16 12/01/16 17:10 17:10 WBC 5.40 10^3/uL 10^3/uL (3.80-9.50) RBC 4.15 10^6/uL L 10^6/uL (4.40-6.38) Hgb 12.9 g/dL L g/dL (13.7-17.5) Hct 38.3 % L % (40.0-51.0) MCV 92.3 fL fL (81.5-99.8) MCH 31.1 pg pg (27.9-34.1) MCHC 33.7 g/dL g/dL (32.4-36.7) RDW 16.1 % H % (11.5-15.2) Plt Count 108 10^3/uL L 10^3/uL (150-400) MPV 9.8 fL fL (8.7-11.7) Neut % (Auto) 66.7 % % (39.3-74.2) Lymph % (Auto) 17.6 % % (15.0-45.0) [place] % (Auto) 10.4 % % (4.5-13.0) Eos % (Auto) 4.1 % % (0.6-7.6) Baso % (Auto) 0.6 % % (0.3-1.7) Nucleat RBC Rel Count 0.0 % % (0.0-0.2) Absolute Neuts (auto) 3.61 10^3/uL 10^3/uL (1.70-6.50) Absolute Lymphs (auto) 0.95 10^3/uL L 10^3/uL (1.00-3.00) Absolute Monos (auto) 0.56 10^3/uL 10^3/uL (0.30-0.80) Absolute Eos (auto) 0.22 10^3/uL 10^3/uL (0.03-0.40) Absolute Basos (auto) 0.03 10^3/uL 10^3/uL (0.02-0.10) Absolute Nucleated RBC 0.00 10^3/uL 10^3/uL (0-0.01) Immature Gran % 0.6 % % (0.0-1.1) Immature Gran # 0.03 10^3/uL 10^3/uL (0.00-0.10) Sodium 133 mEq/L L mEq/L (134-144) Potassium 3.6 mEq/L mEq/L (3.5-5.2) Chloride 101 mEq/L mEq/L (97-110) Carbon Dioxide 23 mEq/l mEq/l (22-31) Anion Gap 9 mEq/L mEq/L (8-16) BUN 12 mg/dL mg/dL (7-23) Creatinine 1.5 mg/dL H mg/dL (0.7-1.3) Estimated GFR 47 Glucose 90 mg/dL mg/dL (70-100) Calcium 10.1 mg/dL mg/dL (8.5-10.4) Troponin I < 0.012 ng/mL ng/mL (0-0.034) Departure - Departure Disposition: [facility] Inpatient Acute Clinical Impression: Pulmonary embolism Condition: Fair Referrals: He Osei MD [Primary Care Provider] - As per Instructions
[2016-12-01 17:41] LABS: % IMMATURE GRANULYOCYTES 0.6 % (0.0-1.1); ABSOLUTE IMMATURE GRANULOCYTES 0.03 10^3/uL (0.00-0.10); ADD DIFF? NO; ADD MORPH? NO; ADD SCAN? NO; ATYPICAL LYMPHOCYTE FLAG 0 (0-99); FRAGMENT RBC FLAG 0 (0-99); HEMATOCRIT 38.3 % (40.0-51.0); HEMOGLOBIN 12.9 g/dL (13.7-17.5); LEFT SHIFT FLG 10 (0-99); LIPEMIA HEMOLYSIS FLAG 80 (0-99); MEAN CELL HEMOGLOBIN 31.1 pg (27.9-34.1); MEAN CELL HEMOGLOBIN CONCENTR. 33.7 g/dL (32.4-36.7); MEAN CELL VOLUME 92.3 fL (81.5-99.8); MEAN PLATELET VOLUME 9.8 fL (8.7-11.7); PLATELET CLUMPS FLAG 30 (0-99); PLATELET COUNT 108 10^3/uL (150-400); RED BLOOD CELL COUNT 4.15 10^6/uL (4.40-6.38); RED CELL DISTRIBUTION WIDTH 16.1 % (11.5-15.2)
[2016-12-01 17:49] LABS: CALCIUM 10.1 mg/dL (8.5-10.4); CARBON DIOXIDE 23 mEq/l (22-31); CHLORIDE 101 mEq/L (97-110); CREATININE 1.5 mg/dL (0.7-1.3); GLOMERULAR FILTRATION RATE 47; GLUCOSE 90 mg/dL (70-100); SODIUM 133 mEq/L (134-144)
[2016-12-01 18:00] LABS: TROPONIN I < 0.012 ng/mL (0-0.034)
[2016-12-01 18:02] LABS: ANION GAP 9 mEq/L (8-16); POTASSIUM 3.6 mEq/L (3.5-5.2)
--- NOTE | 2016-12-01 18:31 | CPEKG ---
Heart Rate: 78 RR Interval: 769 P-R Interval: 160 QRSD Interval: 82 QT Interval: 396 QTC Interval: 452 P Jackson: 47 QRS Jackson: -5 T Wave Jackson: -8 EKG Severity - BORDERLINE ECG - EKG Impression: SINUS RHYTHM EKG Impression: BORDERLINE T ABNORMALITIES, DIFFUSE LEADS Electronically Signed By: Heath Soto 01-Dec-2016 22:23:15
[2016-12-01] MEDS ORDERED: ACETAMINOPHEN 325 MG TAB PO PRN (19:26)
[2016-12-01] MEDS ORDERED: ONDANSETRON DISINTEGRATING 4 MG TAB PO PRN (19:26)
[2016-12-01] MEDS ORDERED: ONDANSETRON 4 MG/2 ML VIAL IVP PRN (19:26)
[2016-12-01] MEDS ORDERED: HEPARIN 10,000 UNIT/10 ML MDV IVP ONE (19:29)
[2016-12-01] MEDS ORDERED: HEPARIN 10,000 UNIT/10 ML MDV IVP PRN (19:29)
[2016-12-01 19:49] LABS: INR 1.36 (0.83-1.16); PROTIME(PATIENT) 16.8 SEC (12.0-15.0)
[2016-12-01 19:50] LABS: TOTAL PROTEIN 5.7 g/dL (6.3-8.2)
[2016-12-01] MEDS ORDERED: HEPARIN/DEXTROSE 25,000 UNIT/500 ML BAG ONE (19:54)
[2016-12-01] MEDS ORDERED: HEPARIN 10,000 UNIT/10 ML MDV ONE (19:54)
[2016-12-01] MEDS: HEPARIN/DEXTROSE 500 ML IV SCH (20:00)
--- NOTE | 2016-12-01 20:06 | GHP ---
[f rep st] HISTORY AND PHYSICAL DATE OF ADMISSION: 12/01/2016 HISTORY OF PRESENT ILLNESS: The patient is a 70-year-old gentleman with a history of renal cell car cinoma, nonalcoholic steatohepatitis with ascites, who presents on the following getting a routine o utpatient CAT scan. He had a surveillance CT scan performed today under the direction of Dr. Castro his primary oncologist and right-sided pulmonary emboli were noted. He was referred to the emergenc y department. The patient denies fever, chills, cough, sputum, hematemesis, coffee-ground emesis, o r dyspnea. He had a hospitalization for nephrectomy followed by a need for cholecystectomy and since then his c irrhosis has been somewhat decompensated with the need for diuretics and paracenteses, but he and hi s note that he has returned to walking about a half a mile a few times a week in the interim. He has no prior history of a VTE of which he is aware. REVIEW OF SYSTEMS: Complete review of systems conducted and negative except as noted in the HPI. PAST MEDICAL HISTORY: Nonalcoholic steatohepatitis. Renal cell carcinoma. History of nephrectomy. Cholecystitis. Type 2 diabetes, diet controlled. Hypertension. Gilbert's. BPH. ALLERGIES: No known drug allergies. MEDICATIONS: Docusate, Lasix, spironolactone, tamsulosin. SOCIAL HISTORY: Really minimal alcohol in his life. No tobacco. Lives with his . FAMILY HISTORY: Son is healthy at the bedside. PHYSICAL EXAM: VITAL SIGNS: Temp 36.5, blood pressure 107/67, pulse 79, breathing 16 times a minut e, 95% on room air. GENERAL: No acute distress. Sclerae anicteric. Oropharynx clear. Mucous mem branes are moist. NECK: Supple without lymphadenopathy or JVD. LUNGS: Clear to auscultation bila terally. HEART: S1, S2. ABDOMEN: Soft. There is a fluid wave consistent with ascites. It is di stended. His incision sites are clean, dry, and intact. Well-healed. LOWER EXTREMITIES: Show 2+ edema bilaterally. Calves nontender. SKIN: Without rash. NEUROLOGIC: Exam is nonfocal. LABS: 1. White count 5.4, hematocrit 38.3, platelets are 108,000. INR is not available at this time. So dium 133, potassium 3.6, chloride 101, bicarb 23, BUN 12, creatinine 1.5. Troponin less than 0.012. LFTs not available. 2. CT scan reviewed and interpreted by me, and reviewed with the radiologist shows moderate clot bu rden on the right side, small pulmonary embolism on the left side. Esophageal varices. Gastric zuleika ices. Cavernous transformation of the portal vein. Splenomegaly. Nodular cirrhosis. 3. EKG interpreted by me, shows sinus at 78 with normal axis and intervals. I discussed the case Dr. Apollo Soto as well as Dr. Chitra Palacios of GI. ASSESSMENT AND PLAN: This is a 70-year-old gentleman with cirrhosis, renal cell carcinoma, here wit h pulmonary embolism. 1. Pulmonary embolism. This is subacute but its size indicates at least a trial of anticoagulation . I had a saji discussion with the family about the high risk nature of anticoagulation in this pa tient and they are willing to proceed. 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 2. Esophageal varices. I have discussed this with GI, Dr. Palacios. Dr. Palacios is going to discuss with Dr. Schroeder his primary railroad operator the possibility of performing EGD as a surveillance or pos sible prophylactic banding prior to initiation of more long-term anticoagulation. He is n.p.o. past midnight. 3. Ascites. We will continue his diuretics once his medications have been reconciled. 4. Prophylaxis. Therapeutically anticoagulated. 5. Renal cell carcinoma. It appears that there was no further evidence of renal cell carcinoma. DISPOSITION: Inpatient status. /[id number]/MODL
[2016-12-02 03:15] LABS: % IMMATURE GRANULYOCYTES 0.3 % (0.0-1.1); ABSOLUTE IMMATURE GRANULOCYTES 0.01 10^3/uL (0.00-0.10); ADD DIFF? NO; ADD MORPH? NO; ADD SCAN? NO; ATYPICAL LYMPHOCYTE FLAG 0 (0-99); FRAGMENT RBC FLAG 0 (0-99); HEMATOCRIT 32.5 % (40.0-51.0); LEFT SHIFT FLG 0 (0-99); LIPEMIA HEMOLYSIS FLAG 90 (0-99); MEAN CELL HEMOGLOBIN 30.8 pg (27.9-34.1); MEAN CELL HEMOGLOBIN CONCENTR. 33.8 g/dL (32.4-36.7); MEAN PLATELET VOLUME 10.1 fL (8.7-11.7); PLATELET CLUMPS FLAG 20 (0-99); PLATELET COUNT 89 10^3/uL (150-400); RED BLOOD CELL COUNT 3.57 10^6/uL (4.40-6.38)
[2016-12-02 03:28] LABS: ALANINE AMINOTRANSFERASE 25 IU/L (21-72); ALBUMIN 2.3 g/dL (3.5-5.0); ALKALINE PHOSPHATASE 78 IU/L (38-126); ANION GAP 7 mEq/L (8-16); ASPARTATE AMINOTRANSFERASE 24 IU/L (17-59); BILIRUBIN,TOTAL 4.9 mg/dL (0.1-1.4); CALCIUM 9.7 mg/dL (8.5-10.4); CARBON DIOXIDE 24 mEq/l (22-31); CHLORIDE 104 mEq/L (97-110); CREATININE 1.4 mg/dL (0.7-1.3); GLOMERULAR FILTRATION RATE 50; GLUCOSE 84 mg/dL (70-100); INR 1.59 (0.83-1.16); POTASSIUM 3.5 mEq/L (3.5-5.2); SODIUM 135 mEq/L (134-144); TOTAL PROTEIN 5.2 g/dL (6.3-8.2)
[2016-12-02 03:58] LABS: BILIRUBIN-UNCONJUGATED 3.9 mg/dL (0.0-1.1)
[2016-12-02] MEDS: SPIRONOLACTONE 50 MG TAB PO SCH (08:42)
[2016-12-02] MEDS: FUROSEMIDE 20 MG TAB PO SCH (08:42)
[2016-12-02] MEDS: TAMSULOSIN HCL 0.4 MG CAP PO SCH (08:42)
[2016-12-02] MEDS: HEPARIN/DEXTROSE 500 ML IV SCH (10:55)
[2016-12-02] MEDS ORDERED: LR 1,000 ML IV ONE (11:42)
[2016-12-02] MEDS ORDERED: PROPOFOL 200 MG/20 ML VIAL ONE (11:58)
[2016-12-02] MEDS ORDERED: NALOXONE HCL 0.4 MG/ML INJ IVP PRN (12:11)
--- NOTE | 2016-12-02 12:11 | PDANEPAE ---
ANE Past Medical History - Cardiovascular History Hx Hypertension: Yes Hx Arrhythmias: No Hx Chest Pain: No Hx Coronary Artery / Peripheral Vascular Disease: No Hx CHF / Valvular Disease: No Hx Palpitations: No Cardiovascular History Comment: HTN dx since 1966-well controlled. Rx for chol. - Pulmonary History Hx COPD: No Hx Asthma/Reactive Airway Disease: No Hx Recent Upper Respiratory Infection: No Hx Oxygen in Use at Home: No Hx Sleep Apnea: Yes Sleep Apnea Screening Result - Last Documented: Positive - Neurologic History Hx Cerebrovascular Accident: No Hx Seizures: No Hx Dementia: No - Endocrine History Hx Diabetes: Yes Endocrine History Comment: tx w/metformin and diet - Renal History Hx Renal Disorders: Yes Renal History Comment: renal neoplasm L side - Liver History Hx Hepatic Disorders: No - Neurological & Psychiatric Hx Hx Neurological and Psychiatric Disorders: Yes Neurological / Psychiatric History Comment: C2-C4 spinal stenosis x few years. - Cancer History Hx Cancer: Yes Cancer History Comment: renal - Congenital Disorder History Hx Congenital Disorders: No - GI History Hx Gastrointestinal Disorders: Yes Gastrointestinal History Comment: diverticulosis,diverticulitis 07-16-16. IBS. Enlarged spleen. - Other Health History Other Health History: hx of Borrego's palsy, R Trigeminal neuralgia. TMJ - Chronic Pain History Chronic Pain: Yes - Surgical History Prior Surgeries: L knee scope. ureteroscopy x3 1983,1998,2014. ANE Patient History - Allergies Allergies/Adverse Reactions: No Known Allergies Allergy (Verified 09/21/16 12:23) - Home Medications Home Medications: Furosemide [Lasix 20 MG (*)] 20 mg PO DAILY 12/01/16 [Last Taken 12/01/16] Spironolactone [Aldactone 50 MG (RX)] 50 mg PO DAILY 12/01/16 [Last Taken ] Tamsulosin HCl [Flomax 0.4 MG (*)] 0.8 mg PO DAILY 12/01/16 [Last Taken 12/01/16 ] - NPO status NPO Since - Liquids (Date): 12/01/16 NPO Since - Liquids (Time): 00:00 NPO Since - Solids (Date): 12/01/16 NPO Since - Solids (Time): 00:00 - Smoking Hx Smoking Status: Never smoked ANE Labs/Vital Signs - Labs Result Diagrams: 12/02/16 03:00 12/02/16 03:00 - Vital Signs Blood Pressure: 101/59 Heart Rate: 72 Respiratory Rate: 18 O2 Sat (%): 93 Height: 177.8 cm Weight: 99.79 kg ANE Physical Exam - Airway Mallampati Score: Class 2 Mouth exam: poor dentition, small mouth opening, [place] - Pulmonary Pulmonary: no rales or rhonchi, clear to auscultation, reduced air movement, dullness to percussion - Cardiovascular Cardiovascular: regular rate and rhythym - ASA Status ASA Status: IV ANE Anesthesia Plan Anesthesia Plan: MAC
--- NOTE | 2016-12-02 12:27 | POSTANESTH ---
Post Anesthetic Evaluation Cardiovascular Status: Normal, Stable, Similar to Pre-Op Cond Respiratory Status: Normal, Stable, Similar to Pre-op Cond. Level of Consciousness/Mental Status: Can Participate in Eval Pain Control: Adequate, Prn Tx Ordered Nausea/Vomiting Control: Adequate, Prn Tx Ordered Complications Possibly Related to Anesthesia: None Noted
--- NOTE | 2016-12-02 12:29 | SUROPNOTE ---
[facility] Operative Report - Surgery EGD Indication: screening for varices Meds: per anesthesia Complications: none acutely Findings: 1. Mild esophagitis 2. possible Grade I varices 3. Portal HTN gastropathy and mild gastritis 4. Clean based, non-bleeding duodenal ulcer 5. Normal duodenum otherwise IMPRESSION/RECS: 1. ESLD - continue diuretics, low Na diet - monitor ascites, edema, and encephalopathy - grade I varices at worst today, not even significant enough to suggest BetaBlockade for primary prophylaxis 2. PUDz - incidental duodenal ulcer noted - not bleeding - check h.pylori - PPI PO BID 3. DISPO - can consider dc home one PE care soriano established - ok to advance diet
[2016-12-02] MEDS: PANTOPRAZOLE SODIUM 40 MG TAB PO SCH ×2 (13:12→21:29)
--- NOTE | 2016-12-02 13:15 | GCON ---
[f rep st] CONSULTATION REFERRING PHYSICIAN: Wesley Gar MD REASON FOR CONSULTATION: Liver disease. CHIEF COMPLAINT: Rule out varices. 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 His end-stage l iver disease has been complicated by ascites. He has not had overt esophageal varices. He underwen t upper endoscopy in late 2015 which was negative for the presence of varices. In early 2016, he neville d 2 procedures. He underwent cholecystectomy as well as nephrectomy. One consequence of undergoing those operative procedures was decompensation of his liver disease. He developed ascites. He has had no encephalopathy. He has not had repeat endoscopic evaluation for varices after his decompensa tions. He came to the emergency room on 12/01/2016. He was in his oncology office today for surveillance o f his underlying kidney disease. He underwent CT scan, and was found to have right-sided pulmonary emboli. He denies any history of chest pain, shortness of breath, etc. He was admitted to the [facility] to workup his clotting further and consider anticoagulation therapy. REVIEW OF SYSTEMS: A complete 10-system review is undertaken with the patient. The pertinent posit john and negatives are detailed in the history of present illness. PAST MEDICAL HISTORY: Includes nonalcoholic steatohepatitis, renal cell carcinoma, status post neph rectomy, cholecystitis, status post laparoscopic cholecystectomy, type 2 diabetes, hypertension, and BPH. ALLERGIES: None. OUTPATIENT MEDICINES: Docusate, Lasix, spironolactone, and tamsulosin. SOCIAL HISTORY: No alcohol or tobacco. No drugs. Lives with his . FAMILY HISTORY: No family history of liver disease to his knowledge. PHYSICAL EXAMINATION: GENERAL: This is a well-developed male in no apparent distress. HEENT: His pupils are equal, round, reactive to light and accommodation. His sclerae are nonicteric. His [place] pharynx is clear. His mucous membranes are moist. NECK: Supple without lymphadenopathy. LUNGS: Clear to auscultation. HEART: Regular rate and rhythm without murmurs, rubs, and gallops. ABDOMEN : Soft, nontender. There is a fluid wave consistent with mild ascites. He does not have any diste ntion or abdominal pain. He has incisional sites that are clean, dry, intact, and well healed. His lower extremities show 2+ bilateral pedal edema. His calves are nontender. SKIN: Without rash. NEUROLOGIC: Nonfocal. There is no evidence of asterixis. MUSCULOSKELETAL: His joints show no art hritis. PSYCH: Normal mood and affect. LABORATORY: A white count of 3.5, hemoglobin of 11.0 hematocrit of 32.5, platelet count of 89. INR of 1.59. Sodium of 135, potassium of 3.5, chloride of 104, bicarb of 24, BUN of 12, creatinine of 1.4, total bilirubin of 4.9, conjugated bilirubin of 1.0, albumin of 2.3. IMPRESSION/RECOMMENDATIONS: The patient is at risk for esophageal varices given his recent decompen sated liver disease perioperatively. Primary prophylaxis is indicated. In the setting of upcoming need for anticoagulation related to pulmonary embolism, the need for primary prophylaxis has come to a head. I recommend endoscopic evaluation to establish the presence or absence of varices. Pendin g that evaluation, we can consider primary prophylaxis with medical therapies - nonselective beta bl ockade. Would not, at this time, recommend endoscopic varices ligation. There is some increased ri sk of bleeding in the setting of sloughing of those variceal bands while anticoagulated. Primary pr ophylaxis with medical therapies will be safer with regard to potential bleeding risk while on antic oagulation. Meanwhile the patient should continue on his diuretic therapies for his underlying ascites. Given his portal hypertensive liver disease, he is at increased risk of conscious sedation. This is made more complicated given his recent pulmonary embolism. As such, we will involve Anesthesia for his procedure. He can remain on heparin for his procedure as I do not plan to perform any biopsies or ligation. /[id number]/MODL
--- NOTE | 2016-12-02 15:55 | HOSPPROG ---
Hospitalist Progress Note Assessment/Plan: 71-year-old male admitted with a new found pulmonary embolus. Patient has undergone an EGD with findings of a duodenal ulcer and esophageal varices without bleeding. He is currently receiving heparin for the pulmonary embolus. Patient is new to me today - pulmonary embolus with moderate clot load of the right and left lung without respiratory impairment. Patient is out cheese in addition is adequate on room air. An ultrasound the lower extremities is being ordered to establish further AH clot load. He will continue on heparin due to his bleeding risk on more long acting anticoagulants. - Steatohepatitis with ascites. He has evidence of ascites clinically but is not jaundiced. Is status post paracentesis in 09/20/2016 and is accumulating ascites very slowly. This T at 0 hepatitis also comes with some portal hypertension with evidence of esophageal varices gastrophy. - duodenal ulcer with grade 1 esophageal varices by EGD today: There is no evidence of bleeding at the ulceration or from the varices. Hemoglobin currently is stable. Will order hemoccults. - Renal cell carcinoma without evidence of recurrence. He is followed by Oncology. Plan: Continue heparin and consult with GI and Oncology regarding long-term anticoagulation options. Family conference: I discussed the findings with the patient his Nola daughter Herbie and son Jefferson. All questions were answered and explanations given. Time was 25 minutes. Time overall: 50 minutes Subjective: no complaints of shortness of breath chest pain hemoptysis abdominal pain nausea or vomiting. Objective: Vital Signs Temp Pulse Resp BP Pulse Ox 36.8 C 71 14 90/52 L 90 L 12/02/16 15:29 12/02/16 15:29 12/02/16 15:29 12/02/16 15:29 12/02/16 15:29 Laboratory Results 12/02/16 03:00 12/02/16 03:00 12/01/16 12/02/16 12/03/16 05:59 05:59 05:59 Intake Total 230 200 Output Total 280 0 Balance -50 200 PT 19.0 SEC (12.0-15.0) H 12/02/16 03:00 INR 1.59 (0.83-1.16) H 12/02/16 03:00 - Time Spent With Patient Time Spent with Patient: greater than 35 minutes Time Spent with Patient: Greater than 35 minutes spent on this patients care, greater than 50% of time spent counseling, educating, and coordinating care regarding the above mentioned plan. - Pending Discharge Pending Discharge Within 24 Hours: No Pending Discharge Within 48 Hours: No - Physical Exam Constitutional: no apparent distress Eyes: PERRL, anicteric sclera Ears, Nose, Mouth, Throat: moist mucous membranes, hearing normal Cardiovascular: regular rate and rhythym, no murmur, rub, or gallop Respiratory: no respiratory distress, no rales or rhonchi Gastrointestinal: normoactive bowel sounds, soft, non-tender abdomen, distension ( Distention with ascites without tenderness is noted hepatosplenomegaly cannot be palpated.), other Genitourinary: no bladder fullness Skin: warm Musculoskeletal: generalized weakness Neurologic: AAOx3, CN II-XII Intact Psychiatric: interacting appropriately ICD10 Worksheet Patient Problems: Problems Problem Status Onset Ascites Acute Renal insufficiency Acute Pulmonary embolism Acute Cholelithiases Acute Cirrhosis Acute Left renal mass Acute
--- NOTE | 2016-12-02 19:11 | GCON ---
[f rep st] CONSULTATION ONCOLOGY INITIAL VISIT PRIMARY ONCOLOGIST: Dr. Castro. REASON FOR VISIT: Evaluation management of history of renal cell carcinoma. HISTORY OF PRESENT ILLNESS: The patient is a 71-year-old gentleman who was diagnosed with a stage I II (T3aN0) renal cell carcinoma of the left lower kidney. He underwent a left nephrectomy in August 2016. Preoperatively, there was some concern of liver cirrhosis, and portal hypertension, mild sple nomegaly, and associated abnormal blood counts. Evaluation for metastasis and portal vein thrombosi s was performed and negative, and he went forward with surgery and overall did well. He was getting a routine followup CT scan through our office, and there was no sign of metastasis, but there were bilateral pulmonary artery thromboemboli. The patient denies having any chest pain or trouble breat shweta. He was in the hospital about 3 months ago with regard to the liver cirrhosis, and ascites, an d cholecystectomy. He denies any lower extremity swelling. He has been started on IV heparin, and GI has seen him to evaluate for esophageal varices. He is currently doing well without any acute co mplaints. His multiple family members are with him in the room. ALLERGIES: He has no known drug allergies. HOME MEDICATIONS: Spironolactone, tamsulosin, and furosemide. PAST MEDICAL HISTORY: 1. Nonalcoholic steatohepatitis. 2. Renal cell carcinoma as per HPI. 3. Type 2 diabetes. 4. Hypertension. 5. Gilbert's. 6. BPH. PAST SURGICAL HISTORY: 1. Nephrectomy. 2. Cholecystectomy. SOCIAL HISTORY: Denies tobacco, or alcohol, or drugs. He is . FAMILY HISTORY: Noncontributory. REVIEW OF SYSTEMS: A 10-point review of systems performed. Pertinent positives per HPI. Otherwise , mostly negative. He does have a little bit of abdominal distention and slowly getting worse. PHYSICAL EXAM: VITAL SIGNS: Temperature is 36.8, pulse is 71, blood pressure is 90/52. GENERAL: He is a fatigued and mildly jaundiced gentleman, but he is alert and oriented, and in no distress. HEENT: Unremarkable. LUNGS: Some decreased breath sounds in the bases. Otherwise, clear. CARDIA C: Regular without murmur. ABDOMEN: Mildly distended with positive fluid wave. Liver is not palp able. It is nontender. EXTREMITIES: He has bilateral edema. NEUROLOGICAL: Nonfocal. LABS: His bilirubin has slowly increased; it was 6 yesterday; it is down to 4.9 today. Before he h ad surgery it was usually in about the 3s. Creatinine is a little elevated at 1.5 yesterday, 1.4 to day. This is close to his baseline. Other LFTs are normal. Albumin is 2.3. INR on arrival was 1. 4. He had a mild anemia at 12.9. White count was normal. Platelet count 108,000, today it is 89,[address] scan showed bilateral pulmonary arterial thromboemboli and some coronary artery calcifications. He has small pericardial effusion. Stable right lung nodularities. He has changes consistent with cirrhosis, and portal hypertension, and large volume ascites. He is post left nephrectomy, and stab le bilateral adrenal gland nodularity. Spleen was unchanged. IMPRESSION: 1. Pulmonary embolism. 2. Liver cirrhosis with ascites and esophageal varices. 3. Renal cell carcinoma, status post nephrectomy, and no evidence of recurrence. PLAN: I agree with the conservative approach with his clot versus varices. Tensioning that he was not symptomatic, but the clot burden is not insignificant. I agree with using heparin until the eso phageal varices could be evaluated. If there is very little or non-problematic, then can go forward with more standard. What to treat him with is not entirely clear. Warfarin is still probably the safest, but we will need to be very careful and monitor his INR closely. Another alternative is to use low-molecular weight heparin. It is more problematic using the newer agents because of their cl earance through the kidney and liver, which can be problematic, and the fact that they cannot be mon itored to make sure he is not being overdosed. Finally, there is not much for reversal. The one th at might be safe would be to consider low-dose Pradaxa at 75, rather than the standard at 150. I stopped by and mostly talked to the patient to reassure him that there is no evidence of kidney ca ncer recurring, and that we will be available to assist with his blood thinning if needed. /[id number]/MODL
[2016-12-03 04:43] LABS: % IMMATURE GRANULYOCYTES 0.6 % (0.0-1.1); ABSOLUTE IMMATURE GRANULOCYTES 0.02 10^3/uL (0.00-0.10); ADD DIFF? NO; ADD MORPH? NO; ADD SCAN? NO; ATYPICAL LYMPHOCYTE FLAG 20 (0-99); FRAGMENT RBC FLAG 0 (0-99); HEMATOCRIT 33.8 % (40.0-51.0); HEMOGLOBIN 11.2 g/dL (13.7-17.5); LEFT SHIFT FLG 0 (0-99); LIPEMIA HEMOLYSIS FLAG 80 (0-99); MEAN CELL HEMOGLOBIN 30.6 pg (27.9-34.1); MEAN CELL HEMOGLOBIN CONCENTR. 33.1 g/dL (32.4-36.7); MEAN CELL VOLUME 92.3 fL (81.5-99.8); MEAN PLATELET VOLUME 10.5 fL (8.7-11.7); PLATELET CLUMPS FLAG 0 (0-99); PLATELET COUNT 95 10^3/uL (150-400); RED BLOOD CELL COUNT 3.66 10^6/uL (4.40-6.38); RED CELL DISTRIBUTION WIDTH 15.9 % (11.5-15.2)
[2016-12-03 05:03] LABS: ALANINE AMINOTRANSFERASE 27 IU/L (21-72); ALBUMIN 2.3 g/dL (3.5-5.0); ALKALINE PHOSPHATASE 72 IU/L (38-126); ANION GAP 7 mEq/L (8-16); ASPARTATE AMINOTRANSFERASE 25 IU/L (17-59); BILIRUBIN,TOTAL 4.1 mg/dL (0.1-1.4); CALCIUM 9.7 mg/dL (8.5-10.4); CARBON DIOXIDE 24 mEq/l (22-31); CHLORIDE 104 mEq/L (97-110); CREATININE 1.4 mg/dL (0.7-1.3); GLOMERULAR FILTRATION RATE 50; GLUCOSE 85 mg/dL (70-100); POTASSIUM 3.9 mEq/L (3.5-5.2); SODIUM 135 mEq/L (134-144)
[2016-12-03 05:11] LABS: BILIRUBIN-CONJUGATED 0.7 mg/dL (0.0-0.5); BILIRUBIN-UNCONJUGATED 3.4 mg/dL (0.0-1.1)
[2016-12-03] MEDS: PANTOPRAZOLE SODIUM 40 MG TAB PO SCH ×2 (09:26→20:36)
[2016-12-03] MEDS: SPIRONOLACTONE 50 MG TAB PO SCH (09:26)
[2016-12-03] MEDS: FUROSEMIDE 20 MG TAB PO SCH (09:27)
[2016-12-03] MEDS: TAMSULOSIN HCL 0.4 MG CAP PO SCH (09:27)
--- NOTE | 2016-12-03 10:59 | SOAPPROG ---
MAXIMILIANO Progress Note Assessment/Plan: Assessment/Plan: 1. PUD - incidentally discovered duodenal ulcer - await h.pylori testing - hold NSAIDs (not good for liver disease or pts with solitary kidney regardless) - PPIPO BID x 12 weeks, then QD thereafter (unless reversible source of ulcer discuvered, such as h.pylori) 2. Varices - only grade I, no indication for primary bleeding prophylaxis with banding OR BetaBlocker at this time 3. ESLD - Houser related - f/u with Dr. Schroeder as scheduled prior to admit 4. PE - on heparin - no bleeding - hypercoag w/u underway - recent CA diagnosis - 30 minutes spent in patient care, 20 minutes spent in counseling and coordination. 12/03/16 10:56 Subjective: CC: f/u liver disease S: no focal complaints tolerating po no fever no cough no cob no sob Objective: Vital Signs Temp Pulse Resp BP Pulse Ox 37.1 C 72 14 110/72 93 12/03/16 08:17 12/03/16 08:17 12/03/16 08:17 12/03/16 08:17 12/03/16 08:17 Laboratory Results 12/03/16 03:46 12/03/16 03:46 12/02/16 12/03/16 12/04/16 05:59 05:59 05:59 Intake Total 230 1177 Output Total 280 650 Balance -50 527 PT 19.0 SEC (12.0-15.0) H 12/02/16 03:00 INR 1.59 (0.83-1.16) H 12/02/16 03:00 Physical Exam - Physical Exam General Appearance: alert EENT: PERRL/EOMI Neck: non-tender, full range of motion Respiratory: lungs clear, normal breath sounds Cardiac/Chest: normal peripheral pulses, edema Abdomen: normal bowel sounds, non-tender, soft, other (ascites) Skin: normal color, No jaundice Extremities: normal range of motion Neuro/Psych: no motor/sensory deficits ICD10 Worksheet Patient Problems: Problems Problem Status Onset Pulmonary embolism Acute Ascites Acute Cholelithiases Acute Cirrhosis Acute Left renal mass Acute Renal insufficiency Acute
[2016-12-03] MEDS: HEPARIN/DEXTROSE 500 ML IV SCH (14:38)
--- NOTE | 2016-12-03 16:09 | SOAPPROG ---
MAXIMILIANO Progress Note Assessment/Plan: E&M for Renal cell * Renal cell carcinoma stage III (T3a N0): resected 08/20 and still monitoring for recurrence but none so far. He as an appointment with me 12/08 and I asked him to keep it. 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 Schroeder * PE: ok to convert to oral; warfarin probably safest. I will sign off but out service will be available. Subjective: Feeling well. Decreased appetite but no other complaints. Objective: Vital Signs Temp Pulse Resp BP Pulse Ox 36.7 C 80 22 H 110/71 92 12/03/16 13:23 12/03/16 13:23 12/03/16 13:23 12/03/16 13:23 12/03/16 13:23 Laboratory Results 12/03/16 03:46 12/03/16 03:46 12/02/16 12/03/16 12/04/16 05:59 05:59 05:59 Intake Total 230 1177 Output Total 280 650 850 Balance -50 527 -850 PT 19.0 SEC (12.0-15.0) H 12/02/16 03:00 INR 1.59 (0.83-1.16) H 12/02/16 03:00 Physical Exam - Physical Exam General Appearance: no apparent distress Respiratory: lungs clear, decreased breath sounds (bases) Cardiac/Chest: regular rate, rhythm Abdomen: soft, distended Skin: jaundice ICD10 Worksheet Patient Problems: Problems Problem Status Onset Pulmonary embolism Acute Ascites Acute Cholelithiases Acute Cirrhosis Acute Left renal mass Acute Renal insufficiency Acute
--- NOTE | 2016-12-03 16:16 | HOSPPROG ---
Hospitalist Progress Note Assessment/Plan: 71-year-old male admitted with a new found pulmonary embolus. Patient has undergone an EGD with findings of a duodenal ulcer and esophageal varices without bleeding. He is currently receiving heparin for the pulmonary embolus. - pulmonary embolus with moderate clot load of the right and left lung without respiratory impairment. Ultrasound lower extremities bilaterally was negative. Oxygenation is adequate now on room air. Patient will start on Coumadin tonight per findings of the EGD showing no bleeding. - Steatohepatitis with ascites. He has evidence of ascites clinically but is jaundiced. Is status post paracentesis in 09/20/2016 and is accumulating ascites very slowly. There is evidence of gastric the an esophageal varices noted by EGD. - duodenal ulcer with grade 1 esophageal varices by EGD today: There is no evidence of bleeding at the ulceration or from the varices. Hemoglobin currently is stable. Will order hemoccults. Per GI they feel he is a low risk of bleeding and can be started on anticoagulation. - Renal cell carcinoma without evidence of recurrence. He is followed by Oncology. Plan: Continue heparin and start Coumadin. Patient can be placed on Lovenox bridge and discharged on Coumadin with Oncology to follow the INR and Coumadin dosing. - Disposition: Discharge 1-2 days on Lovenox bridging. Home O2 at this point will not be needed. Family conference: Discussed all findings with his Nola and son Jefferson. All questions were answered. Discussed oral anticoagulants Coumadin Lovenox and answered all questions. Time overall: 50 minutes Subjective: No complaints of shortness of breath chest pain nausea vomiting. No complaints of abdominal pain. Objective: Vital Signs Temp Pulse Resp BP Pulse Ox 36.7 C 80 22 H 110/71 92 12/03/16 13:23 12/03/16 13:23 12/03/16 13:23 12/03/16 13:23 12/03/16 13:23 Laboratory Results 12/03/16 03:46 12/03/16 03:46 12/02/16 12/03/16 12/04/16 05:59 05:59 05:59 Intake Total 230 1177 Output Total 280 650 850 Balance -50 527 -850 PT 19.0 SEC (12.0-15.0) H 12/02/16 03:00 INR 1.59 (0.83-1.16) H 12/02/16 03:00 - Time Spent With Patient Time Spent with Patient: greater than 35 minutes Time Spent with Patient: Greater than 35 minutes spent on this patients care, greater than 50% of time spent counseling, educating, and coordinating care regarding the above mentioned plan. - Pending Discharge Pending Discharge Within 24 Hours: Yes Pending Discharge Date: 12/04/16 Pending Discharge Time: 11:00 - Physical Exam Constitutional: no apparent distress Eyes: PERRL, icteric sclera Ears, Nose, Mouth, Throat: moist mucous membranes, hearing normal Cardiovascular: regular rate and rhythym, no murmur, rub, or gallop Respiratory: no respiratory distress, no rales or rhonchi, clear to auscultation Gastrointestinal: soft, non-tender abdomen, no palpable masses, ascites, distension Genitourinary: no bladder fullness Skin: warm, other ( Jaundice skin) Musculoskeletal: generalized weakness Neurologic: AAOx3, CN II-XII Intact Psychiatric: interacting appropriately ICD10 Worksheet Patient Problems: Problems Problem Status Onset Pulmonary embolism Acute Ascites Acute Cholelithiases Acute Cirrhosis Acute Left renal mass Acute Renal insufficiency Acute
[2016-12-03] MEDS: WARFARIN SODIUM 5 MG TAB PO SCH (16:49)
[2016-12-04 04:33] LABS: % IMMATURE GRANULYOCYTES 0.3 % (0.0-1.1); ABSOLUTE IMMATURE GRANULOCYTES 0.01 10^3/uL (0.00-0.10); ADD DIFF? NO; ADD MORPH? NO; ADD SCAN? NO; ATYPICAL LYMPHOCYTE FLAG 10 (0-99); FRAGMENT RBC FLAG 0 (0-99); HEMATOCRIT 33.2 % (40.0-51.0); HEMOGLOBIN 11.2 g/dL (13.7-17.5); LEFT SHIFT FLG 0 (0-99); LIPEMIA HEMOLYSIS FLAG 80 (0-99); MEAN CELL HEMOGLOBIN 30.9 pg (27.9-34.1); MEAN CELL HEMOGLOBIN CONCENTR. 33.7 g/dL (32.4-36.7); MEAN CELL VOLUME 91.7 fL (81.5-99.8); MEAN PLATELET VOLUME 9.6 fL (8.7-11.7); PLATELET CLUMPS FLAG 0 (0-99); PLATELET COUNT 93 10^3/uL (150-400); RED BLOOD CELL COUNT 3.62 10^6/uL (4.40-6.38); RED CELL DISTRIBUTION WIDTH 16.1 % (11.5-15.2)
[2016-12-04 04:42] LABS: INR 1.54 (0.83-1.16); PROTIME(PATIENT) 18.5 SEC (12.0-15.0)
[2016-12-04 06:07] LABS: ANION GAP 7 mEq/L (8-16); CALCIUM 9.6 mg/dL (8.5-10.4); CARBON DIOXIDE 23 mEq/l (22-31); CHLORIDE 107 mEq/L (97-110); CREATININE 1.5 mg/dL (0.7-1.3); GLOMERULAR FILTRATION RATE 46; GLUCOSE 95 mg/dL (70-100); POTASSIUM 3.6 mEq/L (3.5-5.2); SODIUM 137 mEq/L (134-144)
[2016-12-04] MEDS: HEPARIN/DEXTROSE 500 ML IV SCH (06:15)
[2016-12-04] MEDS: FUROSEMIDE 20 MG TAB PO SCH (08:41)
[2016-12-04] MEDS: SPIRONOLACTONE 50 MG TAB PO SCH (08:41)
[2016-12-04] MEDS: TAMSULOSIN HCL 0.4 MG CAP PO SCH (08:41)
[2016-12-04] MEDS: PANTOPRAZOLE SODIUM 40 MG TAB PO SCH ×2 (08:41→20:53)
--- NOTE | 2016-12-04 12:04 | HOSPPROG ---
Hospitalist Progress Note Assessment/Plan: 71 yo M with PMH of ESLD 2/2 BULLOCK as well as RCC and ckd admitted with new dx PE # acute PE: noted incidentally on surveillance CT, right sided. Given underlying ESLD and esophageal varices concern for GI bleeding in setting of AC raised. Has been on heparin gtt w/o evidence to suggest active bleeding. Will transition to lovenox this evening with a plan to dc on lmwh/coumadin in am. # ESLD: 2/2 BULLOCK and complicated by ascites and given need for AC EGD was performed revealing grade 1 esophageal varices as well as duodenal ulcer without active bleeding and for that reason watching closely on AC but thus far doing well. Appreciate GI consultation. # ckd: at baseline, continue renally dosing meds # RCC: oncology following, has not had recurrence # Dispo: IP status, will likely dc in am Patient new to my care. Old records reviewed and summarized as above, care plan reviewed with family present at bedside Subjective: no significant overnight events, patient feeling well, eating/ walking, no sob Objective: Vital Signs Temp Pulse Resp BP Pulse Ox 36.6 C 69 14 105/63 92 12/04/16 09:01 12/04/16 09:01 12/04/16 09:01 12/04/16 09:01 12/04/16 09:01 Laboratory Results 12/04/16 03:23 12/04/16 03:23 12/03/16 12/04/16 12/05/16 05:59 05:59 05:59 Intake Total 1177 1982.8 Output Total 650 1525 Balance 527 457.8 PT 18.5 SEC (12.0-15.0) H 12/04/16 03:23 INR 1.54 (0.83-1.16) H 12/04/16 03:23 awake alert nad anicteric op clear rrr no mrg cta dec at bases distended soft nt ble edema warm dry well perfused oriented appropriate - Time Spent With Patient Time Spent with Patient: greater than 35 minutes Time Spent with Patient: Greater than 35 minutes spent on this patients care, greater than 50% of time spent counseling, educating, and coordinating care regarding the above mentioned plan. ICD10 Worksheet Patient Problems: Problems Problem Status Onset Ascites Acute Renal insufficiency Acute Pulmonary embolism Acute Cholelithiases Acute Cirrhosis Acute Left renal mass Acute
[2016-12-04] MEDS: WARFARIN SODIUM 5 MG TAB PO SCH (15:49)
[2016-12-04] MEDS: ENOXAPARIN 100 MG/ML SYR SC SCH (20:54)
[2016-12-05 04:40] LABS: % IMMATURE GRANULYOCYTES 0.2 % (0.0-1.1); ABSOLUTE IMMATURE GRANULOCYTES 0.01 10^3/uL (0.00-0.10); ADD DIFF? NO; ADD MORPH? NO; ADD SCAN? NO; ATYPICAL LYMPHOCYTE FLAG 20 (0-99); FRAGMENT RBC FLAG 0 (0-99); HEMATOCRIT 32.8 % (40.0-51.0); HEMOGLOBIN 11.2 g/dL (13.7-17.5); LEFT SHIFT FLG 0 (0-99); LIPEMIA HEMOLYSIS FLAG 90 (0-99); MEAN CELL HEMOGLOBIN 31.3 pg (27.9-34.1); MEAN CELL HEMOGLOBIN CONCENTR. 34.1 g/dL (32.4-36.7); MEAN CELL VOLUME 91.6 fL (81.5-99.8); MEAN PLATELET VOLUME 9.7 fL (8.7-11.7); PLATELET CLUMPS FLAG 10 (0-99); PLATELET COUNT 92 10^3/uL (150-400); RED BLOOD CELL COUNT 3.58 10^6/uL (4.40-6.38); RED CELL DISTRIBUTION WIDTH 16.1 % (11.5-15.2)
[2016-12-05 04:43] LABS: INR 1.54 (0.83-1.16); PROTIME(PATIENT) 18.5 SEC (12.0-15.0)
[2016-12-05 04:48] LABS: ANION GAP 7 mEq/L (8-16); CALCIUM 9.6 mg/dL (8.5-10.4); CARBON DIOXIDE 25 mEq/l (22-31); CHLORIDE 106 mEq/L (97-110); CREATININE 1.5 mg/dL (0.7-1.3); GLOMERULAR FILTRATION RATE 46; GLUCOSE 87 mg/dL (70-100); POTASSIUM 3.8 mEq/L (3.5-5.2); SODIUM 138 mEq/L (134-144)
[2016-12-05 09:23] VITALS: BP 100/55; PULSE 69; RESP 16; TEMP 98.1; O2SAT 93
--- NOTE | 2016-12-05 09:48 | PDDCSUM ---
Discharge Summary Discharge Summary: Dates of service 12/01-12/05/16 Discharge dx: # PE # ESLD # CKD # RCC Consultations: oncology, GI Procedures performed: EGD Discharge summary: # acute PE: fairly asymptomatic, initially on heparin gtt and transitioned to lovenox and coumadin. Will f/u with coumadin clinic. # ESLD: 2/2 BULLOCK and complicated by ascites and given need for AC EGD was performed revealing grade 1 esophageal varices as well as duodenal ulcer without active bleeding, cleared for AC by GI. # ckd: at baseline, continue renally dosing meds # RCC: oncology following, has not had recurrence DC home f/u with oncology/PCP >35 min spent in discharge of patient, more than half in coordination of care
[2016-12-05] MEDS: FUROSEMIDE 20 MG TAB PO SCH (10:44)
[2016-12-05] MEDS: SPIRONOLACTONE 50 MG TAB PO SCH (10:44)
[2016-12-05] MEDS: TAMSULOSIN HCL 0.4 MG CAP PO SCH (10:44)
[2016-12-05] MEDS: PANTOPRAZOLE SODIUM 40 MG TAB PO SCH (10:45)
[2016-12-05] MEDS: ENOXAPARIN 100 MG/ML SYR SC SCH (12:20)
== END 2016-12-05 14:10 | disposition home or self-care (01) | DRG 176 ==
LOC: F2W 20:09
PROVIDERS: ADMIT Internal Medicine; ATTEND Internal Medicine
PROC: 0DJ08ZZ Inspection of Upper Intestinal Tract, Via Natural or Artificial Opening Endoscopic (ICD-10-PCS; principal; 2016-12-02 12:30)
DX: I26.99 Other pulmonary embolism without acute cor pulmonale (principal); I85.00 Esophageal varices without bleeding; K76.6 Portal hypertension; K75.81 Nonalcoholic steatohepatitis (NASH); K74.69 Other cirrhosis of liver; I10 Essential (primary) hypertension; E11.9 Type 2 diabetes mellitus without complications; K20.9 Esophagitis, unspecified; K26.9 Duodenal ulcer, unspecified as acute or chronic, without hemorrhage or perforation; Z90.5 Acquired absence of kidney; Z85.528 Personal history of other malignant neoplasm of kidney
CPT/HCPCS: 85520-90; J1644; J1650; J2704

== ENCOUNTER → 2016-12-10 | Outpatient (CLI) | payer OTHER ==
[~2016-12-10] MED LIST changes: +ALBUMIN 25% 100 ML SOLN IV ONE; -IOPAMIDOL (ISOVUE 370) 100 ML BTL IV ONE
== END ==
LOC: FIMAGING 08:03
PROVIDERS: ATTEND Internal Medicine
PROC: 0W9G3ZZ Drainage of Peritoneal Cavity, Percutaneous Approach (ICD-10-PCS; principal; 2016-12-10)
DX: R18.8 Other ascites (principal); R10.9 Unspecified abdominal pain
CPT/HCPCS: 49083; P9047

== ENCOUNTER → 2017-01-07 | Outpatient (CLI) | payer OTHER ==
[~2017-01-07] MED LIST changes: +LIDOCAINE 1% 300 MG/30 ML SDV ONE
== END ==
LOC: FIMAGING 10:57
PROVIDERS: ATTEND Internal Medicine
PROC: BW40ZZZ Ultrasonography of Abdomen (ICD-10-PCS; principal; 2017-01-07)
PROC: 0W9F3ZZ Drainage of Abdominal Wall, Percutaneous Approach (ICD-10-PCS; principal; 2017-01-07)
DX: R18.8 Other ascites (principal); K74.69 Other cirrhosis of liver
CPT/HCPCS: 49082; 76705; 88161; 93975; P9047

== ENCOUNTER 2017-01-22 06:40 | Inpatient (IN) | payer OTHER ==
--- NOTE | 2017-01-22 06:55 | CPEKG ---
Heart Rate: 94 RR Interval: 638 P-R Interval: 156 QRSD Interval: 82 QT Interval: 352 QTC Interval: 441 P Kimberly: 45 QRS Kimberly: 14 T Wave Kimberly: -1 EKG Severity - ABNORMAL ECG - EKG Impression: SINUS RHYTHM EKG Impression: LOW VOLTAGE THROUGHOUT EKG Impression: BORDERLINE R WAVE PROGRESSION, ANTERIOR LEADS EKG Impression: BORDERLINE T ABNORMALITIES, ANTERIOR LEADS Electronically Signed By: Jamir Farfan 24-Jan-2017 16:23:45
--- NOTE | 2017-01-22 06:57 | EDPHY ---
HPI/HX/ROS/PE/MDM Narrative: CHIEF COMPLAINT: Chest pain HISTORY OF PRESENT ILLNESS: Patient is a 71-year-old male with history of renal cell carcinoma, nonalcoholic steatohepatitis with ascites who presents today with chest pain. The patient developed a "sharp, warm, electrical pain" on the left side of his chest that woke him up around 6:15 a.m. He had two episodes of this pain this morning that lasted for a few seconds in duration. The patient states he also feels this pain in his right flank. This pain is similar to prior to nephrectomy in August. Patient has developed signifiantly decompensated cirrhosis and has needed paracentesis due to severe volume overload and ascites. His last paracentesis was two weeks ago. No fever, palpitations, vomiting, diarrhea, urinary complaints, headache, lightheadedness. Patitne did have a recent sinus infection. He continues to have a cough. His cough feels similar to his symptoms before a diagnosis of PE. Patient is anticoagulated on Coumadin. REVIEW OF SYSTEMS: Aside from elements discussed in the HPI, a comprehensive 10-point review of systems was reviewed and is negative. PAST MEDICAL HISTORY: Renal cell carcinoma, Nonalcoholic steatohepatitis with ascites, Nephrectomy, Cholecystectomy, DM2, HTN SOCIAL HISTORY: Small amount of alcohol in his life. No tobacco use. Lives at home with . VITAL SIGNS: Reviewed by me GENERAL: Thin, ill appearing, very protuberant abdomen, seems uncomfortable. HEENT: Atraumatic. Eyes: No icterus, no injection. Mouth: dry mucous membranes. No erythema or lesions. Neck: supple with no adenopathy. LUNGS: Clear to auscultation bilaterally, no wheezes, rhonchi or rales. CARDIAC: Regular rate and rhythm, no rubs, murmurs or gallops. ABDOMEN: Soft, massively distended with fluid wave. BACK: No CVA tenderness. EXTREMITIES: No trauma. 1-2+ pitting edema bilaterally. NEURO: Alert and oriented, grossly nonfocal. SKIN: Warm and dry, no rash. PSYCHIATRIC: Normal mentation, no agitation. ED Course: Plan to check lab work and urinalysis. CXR and EKG also ordered. 12-LEAD EKG: Please see the full report in [facility]. My interpretation: Low voltage, no acute ischemic changes. Procedure: Limited transthoracic echocardiogram. A limited transthoracic echocardiogram was performed and interpreted by myself for pericardial effusion. The study was technically difficult. The study was negative for large pericardial effusion. The study demonstrated cardiac activity. The procedure was interpreted and performed by myself, Dr. Damon. Creatinine today is 1.6 this is similar to previous levels. Troponin negative. Labs otherwise largely unremarkable with the exception of a bilirubin of 3.6, unconjugated 2.7. 0807: I spoke to the hospitalist team, the patient will be admitted to Dr. Munoz. Patient requires paracentesis for both diagnostic and therapeutic reasons. Unfortunatly, he is also anticoagulated due to PEs. INR is elevated at 3.87. Patient will require reversal prior to paracentesis. MDM: After history and physical examination, the differential for chest pain In this patientwas considered, including but not limited to, myocardial ischemia, acute coronary syndrome, pulmonary embolus, pericarditis, pleural effusion, chest wall pain, pleural inflammation and pulmonary infectious causes. - Data Points Imaging Results: Imaging Impressions Chest X-Ray 01/22/17 06:49 Impression: No acute findings in the chest. Imaging: I viewed and interpreted images myself Laboratory Results: Laboratory Results 01/22/17 06:59 01/22/17 06:59 01/22/17 01/22/17 01/22/17 06:59 06:59 06:59 WBC 9.49 10^3/uL 10^3/uL (3.80-9.50) RBC 4.06 10^6/uL L 10^6/uL (4.40-6.38) Hgb 12.6 g/dL L g/dL (13.7-17.5) Hct 36.5 % L % (40.0-51.0) MCV 89.9 fL fL (81.5-99.8) MCH 31.0 pg pg (27.9-34.1) MCHC 34.5 g/dL g/dL (32.4-36.7) RDW 15.0 % % (11.5-15.2) Plt Count 161 10^3/uL 10^3/uL (150-400) MPV 9.3 fL fL (8.7-11.7) Neut % (Auto) 79.7 % H % (39.3-74.2) Lymph % (Auto) 12.6 % L % (15.0-45.0) Wilcox % (Auto) 6.2 % % (4.5-13.0) Eos % (Auto) 0.8 % % (0.6-7.6) Baso % (Auto) 0.3 % % (0.3-1.7) Nucleat RBC Rel Count 0.0 % % (0.0-0.2) Absolute Neuts (auto) 7.55 10^3/uL H 10^3/uL (1.70-6.50) Absolute Lymphs (auto) 1.20 10^3/uL 10^3/uL (1.00-3.00) Absolute Monos (auto) 0.59 10^3/uL 10^3/uL (0.30-0.80) Absolute Eos (auto) 0.08 10^3/uL 10^3/uL (0.03-0.40) Absolute Basos (auto) 0.03 10^3/uL 10^3/uL (0.02-0.10) Absolute Nucleated RBC 0.00 10^3/uL 10^3/uL (0-0.01) Immature Gran % 0.4 % % (0.0-1.1) Immature Gran # 0.04 10^3/uL 10^3/uL (0.00-0.10) PT 38.7 SEC H SEC (12.0-15.0) INR 3.87 H (0.83-1.16) APTT 52.9 SEC H SEC (23.0-38.0) Sodium 134 mEq/L mEq/L (134-144) Potassium 3.5 mEq/L mEq/L (3.5-5.2) Chloride 99 mEq/L mEq/L (97-110) Carbon Dioxide 24 mEq/l mEq/l (22-31) Anion Gap 11 mEq/L mEq/L (8-16) BUN 20 mg/dL mg/dL (7-23) Creatinine 1.6 mg/dL H mg/dL (0.7-1.3) Estimated GFR 43 Glucose 83 mg/dL mg/dL (70-100) Calcium 9.7 mg/dL mg/dL (8.5-10.4) Total Bilirubin 3.4 mg/dL H mg/dL (0.1-1.4) Conjugated Bilirubin 0.7 mg/dL H mg/dL (0.0-0.5) Unconjugated Bilirubin 2.7 mg/dL H mg/dL (0.0-1.1) AST 27 IU/L IU/L (17-59) ALT 26 IU/L IU/L (21-72) Alkaline Phosphatase 81 IU/L IU/L (38-126) Troponin I < 0.012 ng/mL ng/mL (0.000-0.034) Total Protein 5.7 g/dL L g/dL (6.3-8.2) Albumin 2.9 g/dL L g/dL (3.5-5.0) Lipase 139 IU/L IU/L (23-300) General Initial Vital Signs: Initial Vital Signs Temperature (C) 36.7 C 01/22/17 06:41 Heart Rate 102 H 01/22/17 06:41 Respiratory Rate 18 01/22/17 06:41 Blood Pressure 103/77 01/22/17 06:41 O2 Sat (%) 96 01/22/17 06:41 O2 Delivery Mode Room Air O2 (L/minute) 2 Allergies/Adverse Reactions: No Known Allergies Allergy (Verified 01/22/17 06:45) Home Medications: Medication Instructions Recorded Tamsulosin HCl [Flomax 0.4 MG (*)] 0.8 mg PO DAILY 12/01/16 Amoxicillin/Clavulanate Pot 875 mg PO BID 01/22/17 [Augmentin 875 MG TAB (*)] Furosemide [Lasix 40 MG (*)] 40 mg PO DAILY 01/22/17 Mupirocin 2% [Bactroban 2% Oint 1 damian TP TID 01/22/17 (RX)] Pantoprazole Sodium [Protonix 40mg 40 mg PO DAILY 01/22/17 (*)] Spironolactone 100 mg PO DAILY 01/22/17 Warfarin Sodium [Coumadin 5MG (*)] 2.5 mg PO TUTHSA@01/22/17 Warfarin Sodium [Coumadin 5MG (*)] 5 mg PO SUMOWEFR@01/22/17 Departure - Departure Disposition: [facility] Clinical Impression: Cirrhosis Qualifiers: Hepatic cirrhosis type: unspecified hepatic cirrhosis Ascites presence: with ascites Qualified Code(s): K74.60 - Unspecified cirrhosis of liver Ascites Qualifiers: Ascites type: other type Qualified Code(s): R18.8 - Other ascites Chest pain Qualifiers: Chest pain type: unspecified Qualified Code(s): R07.9 - Chest pain, unspecified Condition: Fair Report Scribed for: Salena Damon Report Scribed by: Mery Shaikh Date of Report: 01/22/17 Time of Report: 07:23 Physician Review and Approval Statement: Portions of this note were transcribed by a director biomedical engineering. I personally performed a history, physical exam, medical decision making, and confirmed accuracy of information the transcribed note.
[2017-01-22 07:02] LABS: % IMMATURE GRANULYOCYTES 0.4 % (0.0-1.1); ABSOLUTE IMMATURE GRANULOCYTES 0.04 10^3/uL (0.00-0.10); ADD DIFF? NO; ADD MORPH? NO; ADD SCAN? NO; ATYPICAL LYMPHOCYTE FLAG 10 (0-99); FRAGMENT RBC FLAG 0 (0-99); HEMATOCRIT 36.5 % (40.0-51.0); HEMOGLOBIN 12.6 g/dL (13.7-17.5); LEFT SHIFT FLG 0 (0-99); LIPEMIA HEMOLYSIS FLAG 90 (0-99); MEAN CELL HEMOGLOBIN CONCENTR. 34.5 g/dL (32.4-36.7); MEAN CELL VOLUME 89.9 fL (81.5-99.8); MEAN PLATELET VOLUME 9.3 fL (8.7-11.7); PLATELET CLUMPS FLAG 10 (0-99); PLATELET COUNT 161 10^3/uL (150-400); RED BLOOD CELL COUNT 4.06 10^6/uL (4.40-6.38)
[2017-01-22 07:12] LABS: APTT 52.9 SEC (23.0-38.0); INR 3.87 (0.83-1.16); PROTIME(PATIENT) 38.7 SEC (12.0-15.0)
[2017-01-22 07:20] LABS: ALANINE AMINOTRANSFERASE 26 IU/L (21-72); ALBUMIN 2.9 g/dL (3.5-5.0); ALKALINE PHOSPHATASE 81 IU/L (38-126); ANION GAP 11 mEq/L (8-16); ASPARTATE AMINOTRANSFERASE 27 IU/L (17-59); BILIRUBIN,TOTAL 3.4 mg/dL (0.1-1.4); BILIRUBIN-CONJUGATED 0.7 mg/dL (0.0-0.5); BILIRUBIN-UNCONJUGATED 2.7 mg/dL (0.0-1.1); CALCIUM 9.7 mg/dL (8.5-10.4); CARBON DIOXIDE 24 mEq/l (22-31); CHLORIDE 99 mEq/L (97-110); CREATININE 1.6 mg/dL (0.7-1.3); GLOMERULAR FILTRATION RATE 43; GLUCOSE 83 mg/dL (70-100); POTASSIUM 3.5 mEq/L (3.5-5.2); SODIUM 134 mEq/L (134-144); TOTAL PROTEIN 5.7 g/dL (6.3-8.2)
[2017-01-22 07:31] LABS: TROPONIN I < 0.012 ng/mL (0.000-0.034)
[2017-01-22] MEDS ORDERED: ONDANSETRON DISINTEGRATING 4 MG TAB PO PRN (10:17)
[2017-01-22] MEDS ORDERED: ACETAMINOPHEN 325 MG TAB PO PRN (10:17)
[2017-01-22] MEDS ORDERED: ONDANSETRON 4 MG/2 ML VIAL IVP PRN (10:17)
[2017-01-22] MEDS ORDERED: PHYTONADIONE 2.5 MG/2.5 ML ORAL UDL PO ONE (10:53)
[2017-01-22] MEDS: PANTOPRAZOLE SODIUM 40 MG TAB PO SCH (12:16)
--- NOTE | 2017-01-22 12:23 | GHP ---
[f rep st] HISTORY AND PHYSICAL DATE OF ADMISSION: 01/22/2017 CHIEF COMPLAINT: Chest pain. PRIMARY ASSISTANT PROFESSOR OF DRAMA,: Dr. Carrasco. 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 This morning, he awoke from bed about 6:30 and felt a warm sensation, chest pressure on the left side of his chest that only lasted a few seconds. He did not experience any associated nausea, vomiting, numbness or tingling or diaphoresis. He does endorse increased shortness of breath over the past 2 days. He had a therapeutic paracentesis 2 weeks ago of 10 L and one the month prior. Since last paracentesis, he has not been doing well. He has been more fatigued and abdominal swelling returned more quickly. Denies fevers, chills, sweats. Has had some LLQ abd pain attributed to the swelling. Leg swelling has been well -controlled. He has had sinus drainage and was diagnosed with a sinus infection by his PCP. Completed 9 days Augmentin and started on another 5 days. He has had intermittent nausea with no vomiting. He had a few loose stools over the last couple days. REVIEW OF SYSTEMS: I completed a 10-point review of system, negative except as noted in HPI. PAST MEDICAL HISTORY: 1. 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 EGD (01/20): grade 1 varices, duodenal ulcer, portal hypertension , gastropathy. 2. Acute pulmonary embolism in November 2016. 3. Renal cell carcinoma. 4. Type 2 diabetes. 5. History of diverticulitis. 6. Hypertension. 7. Gilbert's. 8. BPH. 9. Recent abdominal ultrasound 01/07 showing partially thrombosed portal vein. 10. Cirrhosis. PAST SURGICAL HISTORY: 1. Nephrectomy. 2. Cholecystectomy. 3. Knee scope. SOCIAL HISTORY: Lives in [place] with his . No illicits, tobacco, or alcohol. FAMILY HISTORY: Mom with congestive heart failure, hypertension. MEDICATIONS: Coumadin, Flomax, spironolactone, Protonix, and Lasix. ALLERGIES: No known drug allergies. PHYSICAL EXAMINATION: VITAL SIGNS: Temperature 37.1, blood pressure 109/67, heart rate 96, respirations 14, 94% on 2 L. GENERAL: Tired appearing. Sitting up in chair, no acute distress. HEENT: PERRLA. Dry mucous membranes. CV: Regular rate, rhythm. No murmurs, gallops, or rubs. Trace pedal edema bilaterally. LUNGS: Clear. No crackles or wheezing. ABDOMEN: Significantly distended, firm. Mild left lower quadrant tenderness. No rebound or guarding. GI: No suprapubic or CVA tenderness. MUSCULOSKELETAL: 5/5 upper and lower extremity strength. NEURO: 2 through 12 intact. No asterixis. LABS: WBC 9, hemoglobin 12, hematocrit 36, platelets 161. INR is 3.8, PT is 38 , PTT 59. Sodium 139, potassium 3.5, chloride 99, carbon dioxide 24, BUN 20, creatinine 1.6 (baseline is 1.4-1.5), total bilirubin 3.4, conjugated 0.7, unconjugated 2.7; AST 27, ALT 26. Troponin less than 0.012. Total protein 5.7 , albumin 2.9, lipase 139. Chest x-ray is personally reviewed by me. No evidence of effusion or pneumonia. EKG is personally reviewed by me. Low voltage throughout, poor R-wave progression anterior leads. This is similar to prior EKG. ASSESSMENT AND PLAN: 1. Atypical chest pain: lasted for a few seconds without associated symptoms and a troponin, EKG negative for ischemia. Will monitor on telemetry and repeat both these. 2. Decompensated end-stage liver disease: due to BULLOCK. Followed by Dr. Carrsaco. Reaccumulation of ascites more quickly. Will tap once INR lowered. Give a small dose of vitamin K and repeat INR in the morning. I have spoken with Dr. Lyman with IR and is agreeable to plan. 3. Acute PE: November outpatient CT by his oncologist. His INR > 3. Hold Coumadin at this time. May have to bridge for INR reversal for tap. 4. Renal cell carcinoma, status post nephrectomy. 5. Controlled diabetes: diet controlled. 6. BPH. Continue Flomax. 7. Supratherapeutic INR: due to interaction with antibiotics. Stop abx 8. Recent sinus infection. Patient has completed a 9-day course. I think this will be sufficient given its interaction with Coumadin. 9. Cirrhosis: Patient is mildly dry on exam. I will hold his diuretics today. 10. Chronic kidney disease: His baseline creat1.4-1.5. Slightly elevated today. Check urine lytes. Hold diuretics, repeat in the morning. May give small amount IVFs.inine is 11. Abdominal pain:suspect due to ascites. Afebrile, no leukocytosis. Eval for SBP with tap. 12. Loose stools: recent abx, high-risk for C diff, check PCR 13. Diet: low sodium. 14. DVT prophylaxis. INR supratherapeutic, SCDs. Disposition: Patient warrants observation admission given acute chest pain warranting telemetry, serial troponins, as well as paracentesis. Time spent on visit: 60 min reviewing prior records, bedside examining pt, discussing case with Dr. Lyman and Dr. Beatty. /[id number]/MODL GORGE
[2017-01-22] MEDS: MUPIROCIN 2% 22 GM OINT TP SCH ×2 (17:29→21:23)
[2017-01-22] MEDS ORDERED: NS 1,000 ML IV SCH (19:45)
[2017-01-22] MEDS: VANCOMYCIN 125 MG/2.5 ML UDL PO SCH (21:22)
[2017-01-22 21:32] LABS: COLOR AMBER; LEUKOCYTE ESTERASE,URINE NEGATIVE (NEGATIVE); NITRITE,URINE NEGATIVE (NEGATIVE)
[2017-01-22 21:35] LABS: MUCUS TRACE /lpf (NONE-1+)
[2017-01-23 05:03] LABS: HEMATOCRIT 34.4 % (40.0-51.0); HEMOGLOBIN 11.7 g/dL (13.7-17.5); MEAN CELL HEMOGLOBIN 30.6 pg (27.9-34.1); MEAN CELL VOLUME 90.1 fL (81.5-99.8); RED BLOOD CELL COUNT 3.82 10^6/uL (4.40-6.38); RED CELL DISTRIBUTION WIDTH 15.2 % (11.5-15.2)
[2017-01-23 05:10] LABS: INR 2.81 (0.83-1.16); PROTIME(PATIENT) 29.9 SEC (12.0-15.0)
[2017-01-23 05:20] LABS: ALANINE AMINOTRANSFERASE 26 IU/L (21-72); ALBUMIN 2.3 g/dL (3.5-5.0); ALKALINE PHOSPHATASE 77 IU/L (38-126); ANION GAP 9 mEq/L (8-16); ASPARTATE AMINOTRANSFERASE 22 IU/L (17-59); BILIRUBIN,TOTAL 4.3 mg/dL (0.1-1.4); CALCIUM 9.5 mg/dL (8.5-10.4); CARBON DIOXIDE 22 mEq/l (22-31); CHLORIDE 98 mEq/L (97-110); CREATININE 1.5 mg/dL (0.7-1.3); GLOMERULAR FILTRATION RATE 46; GLUCOSE 69 mg/dL (70-100); POTASSIUM 3.8 mEq/L (3.5-5.2); SODIUM 129 mEq/L (134-144); TOTAL PROTEIN 5.1 g/dL (6.3-8.2)
[2017-01-23 05:26] LABS: BILIRUBIN-CONJUGATED 0.8 mg/dL (0.0-0.5); BILIRUBIN-UNCONJUGATED 3.5 mg/dL (0.0-1.1)
[2017-01-23] MEDS: VANCOMYCIN 125 MG/2.5 ML UDL PO SCH (06:03)
--- NOTE | 2017-01-23 08:23 | HOSPPROG ---
Hospitalist Progress Note Assessment/Plan: #Acute C diff infection: Flagyl x 14 days #Supratherapeutic INR: due to abx interaction. No active bleed #Decompensated cirrhosis: hold off on therapeutic tap today given acute infection and appears dry on exam. Risk for HRS. Trial albumin. #Hypovolemic hyponatremia: dry on exam. FeNa <1%. Albumin, holding diuretics #Recent PE: INR > 2. Restart coumadin likely tomorrow #Acute abd pain: improved. Multifactorial with C diff, distension. Diagnostic tap today to r/o SBP #CKD: Cr at baseline. #Diarrhea: due to C diff #Hyperbilirubinemia: due to cirrhosis #Diet: low Na, fluid restrict #DVT ppx: SCDs #Disp: warrants inpt admission with C diff, hypovolemia. May DC tomorrow if clinically improved. # Subjective: abd pain less today Objective: Vital Signs Temp Pulse Resp BP Pulse Ox 36.9 C 74 12 105/62 91 L 01/23/17 08:00 01/23/17 08:00 01/23/17 08:00 01/23/17 08:00 01/23/17 08:00 Microbiology 01/22/17 15:15 Gastrointestinal Tract Panel (PCR) - Final Stool Clostridium Difficile Detected Laboratory Results 01/23/17 04:36 01/23/17 04:36 01/22/17 01/23/17 01/24/17 05:59 05:59 05:59 Intake Total 400 Output Total 150 Balance 250 PT 29.9 SEC (12.0-15.0) H D 01/23/17 04:36 INR 2.81 (0.83-1.16) H 01/23/17 04:36 - Physical Exam Constitutional: no apparent distress Ears, Nose, Mouth, Throat: dry mucous membranes Cardiovascular: regular rate and rhythym, no murmur, rub, or gallop, edema ( trace pedal edema) Respiratory: no respiratory distress, no rales or rhonchi Gastrointestinal: normoactive bowel sounds, soft, non-tender abdomen, distension (signifcant, min TTP LLQ. No rebound/guardin) Genitourinary: no bladder fullness Skin: warm Musculoskeletal: full muscle strength Neurologic: AAOx3, CN II-XII Intact, other (no asterexis) Psychiatric: interacting appropriately ICD10 Worksheet Patient Problems: Problems Problem Status Onset Ascites Acute Chest pain Acute Cirrhosis Acute Ascites Acute Cholelithiases Acute Cirrhosis Acute Left renal mass Acute Pulmonary embolism Acute Renal insufficiency Acute
[2017-01-23] MEDS ORDERED: ALBUMIN 25% 200 ML IV ONE (08:52)
[2017-01-23] MEDS: MUPIROCIN 2% 22 GM OINT TP SCH ×3 (09:32→21:45)
[2017-01-23] MEDS: PANTOPRAZOLE SODIUM 40 MG TAB PO SCH (09:32)
[2017-01-23] MEDS ORDERED: LIDO/EPI 1% **for epidural** 30 ML SDV ONE (10:11)
[2017-01-23] MEDS ORDERED: LIDOCAINE 1% 300 MG/30 ML SDV ONE (10:13)
[2017-01-23] MEDS: metroNIDAZOLE 500 MG TAB PO SCH ×2 (14:51→21:45)
[2017-01-23 15:32] LABS: GLUCOSE, PERITONEAL FLUID 74 mg/dL (55-113)
[2017-01-24 04:44] LABS: HEMATOCRIT 31.7 % (40.0-51.0); HEMOGLOBIN 10.9 g/dL (13.7-17.5); MEAN CELL HEMOGLOBIN 30.5 pg (27.9-34.1); MEAN CELL HEMOGLOBIN CONCENTR. 34.4 g/dL (32.4-36.7); MEAN CELL VOLUME 88.8 fL (81.5-99.8); RED BLOOD CELL COUNT 3.57 10^6/uL (4.40-6.38); RED CELL DISTRIBUTION WIDTH 15.2 % (11.5-15.2)
[2017-01-24 04:53] LABS: INR 2.45 (0.83-1.16); PROTIME(PATIENT) 26.8 SEC (12.0-15.0)
[2017-01-24 05:08] LABS: ALANINE AMINOTRANSFERASE 23 IU/L (21-72); ALBUMIN 2.3 g/dL (3.5-5.0); ALKALINE PHOSPHATASE 69 IU/L (38-126); ANION GAP 8 mEq/L (8-16); ASPARTATE AMINOTRANSFERASE 22 IU/L (17-59); BILIRUBIN,TOTAL 3.9 mg/dL (0.1-1.4); CALCIUM 9.3 mg/dL (8.5-10.4); CARBON DIOXIDE 22 mEq/l (22-31); CHLORIDE 98 mEq/L (97-110); CREATININE 1.4 mg/dL (0.7-1.3); GLOMERULAR FILTRATION RATE 50; GLUCOSE 79 mg/dL (70-100); POTASSIUM 3.5 mEq/L (3.5-5.2); SODIUM 128 mEq/L (134-144)
[2017-01-24 05:17] LABS: BILIRUBIN-CONJUGATED 0.6 mg/dL (0.0-0.5); BILIRUBIN-UNCONJUGATED 3.3 mg/dL (0.0-1.1)
[2017-01-24] MEDS: metroNIDAZOLE 500 MG TAB PO SCH ×3 (06:00→22:29)
[2017-01-24] MEDS: MUPIROCIN 2% 22 GM OINT TP SCH ×3 (11:18→22:30)
[2017-01-24] MEDS: PANTOPRAZOLE SODIUM 40 MG TAB PO SCH (11:20)
[2017-01-24] MEDS ORDERED: ALBUMIN 25% 100 ML IV ONE ×3 (13:00→17:30)
--- NOTE | 2017-01-24 13:35 | HOSPPROG ---
Hospitalist Progress Note Assessment/Plan: Assessment: 71-year-old male with end-stage liver receive presents with acute C diff colitis Plan: #Acute C diff colitis: Flagyl x 14 days after hospitalization given SBP ppx #End-stage liver disease and cirrhosis: requires routine therapeutic juanito, currently feeling tense in abd with LE edema, large vol ascites on US -get therapeutic para today, give albumin arely-procedurely -SBP ppx required, start CTX -no e/o SBP on para #Hypoperfusion hyponatremia: Corry, 2/2 hypervolemia w/ intravascular depletion from low oncotic pressure, no CHF on CXR (personally interpreted) -no particular improvement w/ holding para and giving albumin yesterday -will perform therapeutic para in attempt to increase renal perfusion -will repeat sNa tomorrow AM prior to restarting diuretics -will need close outpt f/u for lyte monitoring #Recent PE: INR > 2. Restart coumadin today #CKD stage III: Cr at baseline (1.4-1.6), reviewed outside records to confirm #Diarrhea: due to C diff #Hyperbilirubinemia: due to cirrhosis #Diet: low Na, fluid restrict #DVT ppx: on comadin #Disp: careful fluid balance required w/ para today, monitoring SBP/sNa and restarting diuretics tomorrow High medical complexity, high risk patient worsening morbidity and mortality, 2/ 2 issues outlined above. Subjective: no diarrhea o/n, denying abd pain Objective: Vital Signs Temp Pulse Resp BP Pulse Ox 36.7 C 73 18 102/65 95 01/24/17 11:53 01/24/17 11:53 01/24/17 11:53 01/24/17 11:53 01/24/17 11:53 Microbiology 01/23/17 Unknown Gram Stain - Final Peritoneal Fluid - Aspirate Laboratory Results 01/24/17 04:05 01/24/17 04:05 01/23/17 01/24/17 01/25/17 05:59 05:59 05:59 Intake Total 1320 Balance 1320 PT 26.8 SEC (12.0-15.0) H 01/24/17 04:05 INR 2.45 (0.83-1.16) H 01/24/17 04:05 - Physical Exam Constitutional: no apparent distress, not in pain, chronically ill appearing, No uncomfortable Cardiovascular: systolic murmur (I/ at all vlaves), edema (1+ bilat LE), No irregularly irregular, No tachycardia Respiratory: no respiratory distress, no rales or rhonchi, clear to auscultation Gastrointestinal: normoactive bowel sounds, ascites, distension (moderate-severe ), No tenderness, No guarding Skin: other (jauncided) Neurologic: AAOx3, sensation intact bilaterally, No weakness, No asterixes Psychiatric: interacting appropriately, not anxious, not encephalopathic, thought process linear ICD10 Worksheet Patient Problems: Problems Problem Status Onset Ascites Acute Chest pain Acute Cirrhosis Acute Ascites Acute Cholelithiases Acute Cirrhosis Acute Left renal mass Acute Pulmonary embolism Acute Renal insufficiency Acute
[2017-01-24] MEDS ORDERED: LIDOCAINE 1% 300 MG/30 ML SDV ONE (14:57)
[2017-01-24] MEDS ORDERED: WARFARIN SODIUM 5 MG TAB PO SCH (16:00)
[2017-01-24] MEDS ORDERED: WARFARIN SODIUM 2.5 MG TAB PO ONE (16:00)
[2017-01-24] MEDS: TAMSULOSIN HCL 0.4 MG CAP PO SCH (17:56)
[2017-01-25] MEDS: metroNIDAZOLE 500 MG TAB PO SCH ×3 (05:05→21:30)
[2017-01-25 05:09] LABS: % IMMATURE GRANULYOCYTES 0.3 % (0.0-1.1); ABSOLUTE IMMATURE GRANULOCYTES 0.01 10^3/uL (0.00-0.10); ADD DIFF? NO; ADD MORPH? NO; ADD SCAN? NO; ATYPICAL LYMPHOCYTE FLAG 10 (0-99); FRAGMENT RBC FLAG 0 (0-99); HEMATOCRIT 31.1 % (40.0-51.0); HEMOGLOBIN 10.8 g/dL (13.7-17.5); LEFT SHIFT FLG 0 (0-99); LIPEMIA HEMOLYSIS FLAG 90 (0-99); MEAN CELL HEMOGLOBIN 30.9 pg (27.9-34.1); MEAN CELL HEMOGLOBIN CONCENTR. 34.7 g/dL (32.4-36.7); MEAN CELL VOLUME 89.1 fL (81.5-99.8); MEAN PLATELET VOLUME 9.4 fL (8.7-11.7); PLATELET CLUMPS FLAG 0 (0-99); PLATELET COUNT 110 10^3/uL (150-400); RED BLOOD CELL COUNT 3.49 10^6/uL (4.40-6.38); RED CELL DISTRIBUTION WIDTH 14.9 % (11.5-15.2)
[2017-01-25 05:15] LABS: INR 2.79 (0.83-1.16); PROTIME(PATIENT) 29.8 SEC (12.0-15.0)
[2017-01-25 05:30] LABS: ALANINE AMINOTRANSFERASE 22 IU/L (21-72); ALBUMIN 2.4 g/dL (3.5-5.0); ALKALINE PHOSPHATASE 55 IU/L (38-126); ANION GAP 8 mEq/L (8-16); ASPARTATE AMINOTRANSFERASE 20 IU/L (17-59); CALCIUM 9.5 mg/dL (8.5-10.4); CARBON DIOXIDE 24 mEq/l (22-31); CHLORIDE 98 mEq/L (97-110); CREATININE 1.3 mg/dL (0.7-1.3); GLOMERULAR FILTRATION RATE 55; GLUCOSE 84 mg/dL (70-100); POTASSIUM 3.7 mEq/L (3.5-5.2); SODIUM 130 mEq/L (134-144); TOTAL PROTEIN 4.8 g/dL (6.3-8.2)
[2017-01-25 05:36] LABS: BILIRUBIN-CONJUGATED 0.4 mg/dL (0.0-0.5); BILIRUBIN-UNCONJUGATED 2.6 mg/dL (0.0-1.1)
[2017-01-25] MEDS: FUROSEMIDE 40 MG TAB PO SCH (09:11)
[2017-01-25] MEDS: TAMSULOSIN HCL 0.4 MG CAP PO SCH (09:11)
[2017-01-25] MEDS: PANTOPRAZOLE SODIUM 40 MG TAB PO SCH (09:11)
[2017-01-25] MEDS: MUPIROCIN 2% 22 GM OINT TP SCH ×3 (09:13→22:33)
[2017-01-25] MEDS ORDERED: WARFARIN SODIUM 5 MG TAB PO SCH (16:00)
--- NOTE | 2017-01-25 18:50 | HOSPPROG ---
Hospitalist Progress Note Assessment/Plan: Assessment: 71-year-old male with end-stage liver receive presents with acute C diff colitis Plan: #Acute C diff colitis: Flagyl x 14 days after hospitalization given SBP ppx #End-stage liver disease and cirrhosis: requires routine therapeutic juanito, s/p 11.5L yesterday w/ albumin -SBP ppx required, cont CTX -no e/o SBP on para -patient may be TIPS candidate, d/w Dr. Beatty, he recommends contacting Dr. Schroeder for further guidance tomorrow -hypotensive and symptomatic today, restarted lasix 40mg, will require additional 24hrs to re-equilibrate and gauge whether to restart aldactone or halve lasix #Hypoperfusion hyponatremia: Corry, 2/2 hypervolemia w/ intravascular depletion from low oncotic pressure, no CHF on CXR (personally interpreted) -improvement w/ para -will need close outpt f/u for lyte monitoring #RCC: s/p L nephrectomy 07/23 -counseled patient that CT abd w/o contrast may be low yield staging study, and would rec f/u CC Dr. Castro to outpt surveillance, which may include PET #Recent PE: INR > 2. Restarted coumadin today #CKD stage III: Cr at baseline (1.4-1.6), reviewed outside records to confirm #Diarrhea: due to C diff #Hyperbilirubinemia: due to cirrhosis #Diet: low Na, fluid restrict #DVT ppx: on comadin #Disp: ADD 01/26, careful fluid balance required Subjective: lightheaded w/ ambulation Objective: Vital Signs Temp Pulse Resp BP Pulse Ox 36.4 C 86 16 89/56 L 98 01/25/17 15:06 01/25/17 15:06 01/25/17 15:06 01/25/17 15:06 01/25/17 15:06 Microbiology 01/23/17 Unknown Gram Stain - Final Peritoneal Fluid - Aspirate Laboratory Results 01/25/17 04:52 01/25/17 04:52 01/24/17 01/25/17 01/26/17 05:59 05:59 05:59 Intake Total 1320 1470 1790 Output Total 74595 755 Balance 1320 -30293 1035 PT 29.8 SEC (12.0-15.0) H 01/25/17 04:52 INR 2.79 (0.83-1.16) H 01/25/17 04:52 - Time Spent With Patient Time Spent with Patient: greater than 35 minutes Time Spent with Patient: Greater than 35 minutes spent on this patients care, greater than 50% of time spent counseling, educating, and coordinating care regarding the above mentioned plan. - Physical Exam Constitutional: no apparent distress, not in pain, chronically ill appearing, No uncomfortable Cardiovascular: systolic murmur (I/ at all valves), edema (1+ bilat LE), No irregularly irregular, No tachycardia Respiratory: no respiratory distress, no rales or rhonchi, clear to auscultation Gastrointestinal: ascites, distension, No tenderness Neurologic: AAOx3 Psychiatric: interacting appropriately, not anxious, not encephalopathic, thought process linear ICD10 Worksheet Patient Problems: Problems Problem Status Onset Clostridium difficile infection Acute ~01/22/17 Ascites Acute Renal insufficiency Acute Pulmonary embolism Acute Cirrhosis Acute Ascites Acute Chest pain Acute Cholelithiases Acute Cirrhosis Acute Left renal mass Acute
[2017-01-26 05:56] LABS: % IMMATURE GRANULYOCYTES 0.9 % (0.0-1.1); ABSOLUTE IMMATURE GRANULOCYTES 0.04 10^3/uL (0.00-0.10); ADD DIFF? NO; ADD MORPH? NO; ADD SCAN? NO; ATYPICAL LYMPHOCYTE FLAG 10 (0-99); FRAGMENT RBC FLAG 0 (0-99); HEMATOCRIT 33.5 % (40.0-51.0); HEMOGLOBIN 11.6 g/dL (13.7-17.5); LEFT SHIFT FLG 0 (0-99); LIPEMIA HEMOLYSIS FLAG 90 (0-99); MEAN CELL HEMOGLOBIN 30.9 pg (27.9-34.1); MEAN CELL HEMOGLOBIN CONCENTR. 34.6 g/dL (32.4-36.7); MEAN CELL VOLUME 89.1 fL (81.5-99.8); MEAN PLATELET VOLUME 9.6 fL (8.7-11.7); PLATELET CLUMPS FLAG 0 (0-99); PLATELET COUNT 142 10^3/uL (150-400); RED BLOOD CELL COUNT 3.76 10^6/uL (4.40-6.38); RED CELL DISTRIBUTION WIDTH 14.9 % (11.5-15.2)
[2017-01-26 05:59] LABS: INR 2.84 (0.83-1.16); PROTIME(PATIENT) 30.2 SEC (12.0-15.0)
[2017-01-26] MEDS: metroNIDAZOLE 500 MG TAB PO SCH ×2 (06:00→16:03)
[2017-01-26 06:03] LABS: ALANINE AMINOTRANSFERASE 25 IU/L (21-72); ALBUMIN 2.5 g/dL (3.5-5.0); ALKALINE PHOSPHATASE 61 IU/L (38-126); ANION GAP 7 mEq/L (8-16); ASPARTATE AMINOTRANSFERASE 24 IU/L (17-59); BILIRUBIN,TOTAL 2.1 mg/dL (0.1-1.4); CALCIUM 9.5 mg/dL (8.5-10.4); CARBON DIOXIDE 22 mEq/l (22-31); CHLORIDE 98 mEq/L (97-110); CREATININE 1.3 mg/dL (0.7-1.3); GLOMERULAR FILTRATION RATE 55; GLUCOSE 77 mg/dL (70-100); POTASSIUM 3.7 mEq/L (3.5-5.2); SODIUM 127 mEq/L (134-144)
[2017-01-26 06:09] LABS: BILIRUBIN-CONJUGATED 0.5 mg/dL (0.0-0.5); BILIRUBIN-UNCONJUGATED 1.6 mg/dL (0.0-1.1)
[2017-01-26 07:16] VITALS: RESP 16
[2017-01-26] MEDS: PANTOPRAZOLE SODIUM 40 MG TAB PO SCH (09:29)
[2017-01-26] MEDS: FUROSEMIDE 40 MG TAB PO SCH (09:29)
[2017-01-26] MEDS: TAMSULOSIN HCL 0.4 MG CAP PO SCH (09:29)
[2017-01-26] MEDS: MUPIROCIN 2% 22 GM OINT TP SCH (09:31)
[2017-01-26 11:07] VITALS: BP 94/56; PULSE 76; TEMP 97.7; O2SAT 94
[2017-01-26] MEDS ORDERED: WARFARIN SODIUM 5 MG TAB PO SCH (16:00)
--- NOTE | 2017-01-26 16:08 | PDDCSUM ---
Discharge Summary Discharge Summary: DISCHARGE SUMMARY FOLLOW-UP ITEMS: Repeat creatinine BUN and lytes on Tuesday DATE OF ADMISSION: 01/22/17 DATE OF DISCHARGE: 01/25/17 DISCHARGE DIAGNOSES: 1. Acute C diff colitis 2. End-stage liver disease with cirrhosis 3. Acute hyponatremia 4. Renal cell carcinoma 5. Recent pulmonary embolism 6. Chronic kidney disease stage 3 CONSULTATIONS: Hepatology vamsib sided PROCEDURES / IMAGING: Therapeutic paracentesis removing 11.5 L CHIEF COMPLAINT: Acute diarrhea SUBJECTIVE: Patient is feeling well at time discharge, he has had formed bowel movements, 1 today PHYSICAL EXAM ON DISCHARGE: Systolic blood pressure is 100, abdomen is soft, full of ascites, mild to moderately distended, 1+ bilateral lower extremity edema, alert awake oriented x3, no pain LABS ON DISCHARGE: Serum sodium 127, potassium 3.7, creatinine 1.3, INR 2.8, white blood count 4400 , hemoglobin 11.6 HOSPITAL COURSE BY PROBLEM: 1. Acute C difficile colitis. Diagnosed via PCR, diarrhea on presentation, initiated on Flagyl. The patient require 14 days of Flagyl from the date of discharge, since he has been receiving SBP prophylaxis antibiotics during this hospitalization. 2. End-stage liver disease with cirrhosis. The patient had spontaneous bacterial peritonitis ruled out with diagnostic paracentesis and then he underwent therapeutic paracentesis with 11.5 L of volume removed. The patient received albumin following the procedure. His diuretics were held during his hospitalization and were re-initiated sequentially. He has been restarted on Lasix 40 mg daily and his systolic blood pressures around 100, currently asymptomatic. 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 Schroeder. I discussed patient's situation with his primary charcoal burner beehive kil[employer], and at the present time it is not felt like he has a TIPS candidate. He will be reassessed in the outpatient setting and has a liver transplant clinic consultation at the end of February. 3. Hyponatremia. Patient has acute hypoperfusion hyponatremia in the setting of intravascular depletion from low oncotic pressure. He had no evidence of CHF on chest x-ray. He did experience improvement in his serum sodium level with paracentesis. He has had slight downtrend today, but I believe that it began up trending with more aggressive diuresis, initiating his aldactone today. He will have repeat creatinine BUN and lytes on Tuesday. 4. Chronic kidney disease stage 3. Patient's creatinine is currently around his baseline level. 5. Renal cell carcinoma. Status post nephrectomy, counseled patient that a CT of his abdomen without contrast would be low yield at the present time, recommend he follow up with his primary oncologist for outpatient surveillance, which may include a PET scan. 6. Recent pulmonary embolism. Present on admission, INR initially supratherapeutic secondary to Augmentin, has stabilized, restarted Coumadin. DISCHARGE MEDICATIONS: Please see official discharge medication reconciliation sheet in chart , Aldactone have dose at 50 mg daily, Lasix 40 mg daily, Flagyl 500 mg q.8 hours times 14 days. DISCHARGE INSTRUCTIONS: Please follow up with Dr. Schroeder on Tuesday. TIME SPENT: Greater than 30 minutes were spent on direct patient care, as well as discharge planning and preparation.
== END 2017-01-26 16:35 | disposition home or self-care (01) | DRG 372 ==
LOC: F2W 09:28 → OBSVTOIN 01-23 09:23
PROVIDERS: ADMIT Internal Medicine; ATTEND Internal Medicine
PROC: 0W9G3ZZ Drainage of Peritoneal Cavity, Percutaneous Approach (ICD-10-PCS; principal; 2017-01-23)
PROC: 0W9G3ZZ Drainage of Peritoneal Cavity, Percutaneous Approach (ICD-10-PCS; 2017-01-24)
DX: A04.7 Enterocolitis due to Clostridium difficile (principal); E87.1 Hypo-osmolality and hyponatremia; R79.1 Abnormal coagulation profile; T36.0X5A Adverse effect of penicillins, initial encounter; R18.8 Other ascites; K74.69 Other cirrhosis of liver; K75.81 Nonalcoholic steatohepatitis (NASH); K76.6 Portal hypertension; I10 Essential (primary) hypertension; E11.9 Type 2 diabetes mellitus without complications; Z90.5 Acquired absence of kidney; Z85.528 Personal history of other malignant neoplasm of kidney; Z86.711 Personal history of pulmonary embolism; Z86.718 Personal history of other venous thrombosis and embolism; Z79.01 Long term (current) use of anticoagulants; K57.30 Diverticulosis of large intestine without perforation or abscess without bleeding
CPT/HCPCS: 97161-GP; G0378; J0696; P9047

== ENCOUNTER → 2017-02-14 | Outpatient (CLI) | payer OTHER | LOC: FIMAGING 15:52 | PROVIDERS: ATTEND Internal Medicine | DX: R18.8 Other ascites (principal); K75.81 Nonalcoholic steatohepatitis (NASH); K74.60 Unspecified cirrhosis of liver; Z90.5 Acquired absence of kidney; M48.02 Spinal stenosis, cervical region; Z85.528 Personal history of other malignant neoplasm of kidney; Z86.711 Personal history of pulmonary embolism; Z79.01 Long term (current) use of anticoagulants ==

== ENCOUNTER → 2017-02-15 | Outpatient (CLI) | payer OTHER ==
[~2017-02-15] MED LIST changes: -ALBUMIN 25% 100 ML SOLN IV ONE
[2017-02-15 11:56] LABS: GLUCOSE, PERITONEAL FLUID 86 mg/dL (55-113)
== END ==
LOC: FIMAGING 09:59
PROVIDERS: ATTEND Internal Medicine
PROC: 0W9G3ZZ Drainage of Peritoneal Cavity, Percutaneous Approach (ICD-10-PCS; principal; 2017-02-15)
DX: R18.8 Other ascites (principal); K74.60 Unspecified cirrhosis of liver

== ENCOUNTER → 2017-03-15 | Outpatient (CLI) | payer OTHER ==
[~2017-03-15] MED LIST changes: +ALBUMIN 25% 100 ML SOLN IV ONE
== END ==
LOC: FIMAGING 11:50
PROVIDERS: ATTEND Internal Medicine
PROC: BW40ZZZ Ultrasonography of Abdomen (ICD-10-PCS; principal; 2017-03-15)
PROC: 0W9F3ZZ Drainage of Abdominal Wall, Percutaneous Approach (ICD-10-PCS; principal; 2017-03-15)
DX: R18.8 Other ascites (principal)
CPT/HCPCS: 49082; P9047

== ENCOUNTER → 2017-03-25 | Outpatient (CLI) | payer OTHER ==
[~2017-03-25] MED LIST changes: -ALBUMIN 25% 100 ML SOLN IV ONE
== END ==
LOC: FIMAGING 12:05
PROVIDERS: ATTEND Internal Medicine
PROC: 0W9G3ZZ Drainage of Peritoneal Cavity, Percutaneous Approach (ICD-10-PCS; principal; 2017-03-25)
DX: R18.8 Other ascites (principal)

== ENCOUNTER → 2017-04-07 | Outpatient (CLI) | payer OTHER ==
[~2017-04-07] MED LIST changes: +ALBUMIN 25% 100 ML SOLN IV ONE
== END ==
LOC: FIMAGING 11:29
PROVIDERS: ATTEND Internal Medicine
PROC: 0W9F3ZZ Drainage of Abdominal Wall, Percutaneous Approach (ICD-10-PCS; principal; 2017-04-07)
DX: R18.8 Other ascites (principal); K74.60 Unspecified cirrhosis of liver
CPT/HCPCS: 49083; P9047

== ENCOUNTER → 2017-04-26 | Outpatient (CLI) | payer OTHER | LOC: FIMAGING 11:40 | PROVIDERS: ATTEND Radiology Diagnostic Radiology | DX: R18.8 Other ascites (principal); K74.60 Unspecified cirrhosis of liver | CPT/HCPCS: 49083; 76700; P9047 ==

== ENCOUNTER 2017-05-05 10:37 | Emergency (ER) | payer OTHER ==
--- NOTE | 2017-05-05 11:05 | EDPHY ---
H & P Stated Complaint: R abd pain x 2 wks;Dx'd w/R ing hernia yesterday;sent for eval Source: Patient Exam Limitations: No limitations - Personal History Current Tetanus Diphtheria and Acellular Pertussis (TDAP): Unsure - Medical/Surgical History Hx Asthma: No Hx Chronic Respiratory Disease: No Hx Diabetes: Yes Hx Cardiac Disease: No Hx Renal Disease: Yes Hx Cirrhosis: Yes Hx Alcoholism: No Hx HIV/AIDS: No Hx Splenectomy or Spleen Trauma: No Other PMH: diabetes type 2 but diet controled now/bph/kidney CA/Left knee scope/ Left kidney stones/vasectomy/ibs/Left kidney removed, cirrhosis of the liver reason unknown. Cholicystectomy 2017, C2-C3 stenosis., PE 2017, paracentesis 01/07/17 - Social History Smoking Status: Never smoked Time Seen by Provider: 05/05/17 10:46 HPI/ROS: CHIEF COMPLAINT: Right groin pain HISTORY OF PRESENT ILLNESS: The patient presents to the ED with a 2 week history of progressive right groin pain. The patient has a history of end- stage liver disease and cirrhosis. The patient does get therapeutic paracenteses. His last paracentesis was approximately week ago. The patient saw his primary care provider yesterday who diagnosed him with a inguinal hernia. He recommended physical therapy and conservative management. The patient presents to the ED today secondary to pain not controlled with over-the- counter medications. The patient denies any fever or vomiting. He reports normal bowel movements. The patient reports he has had approximately 9 lb of weight gain in the past week. He reportedly is being treated with an albumin infusion for management of his ascites. REVIEW OF SYSTEMS: A comprehensive 10 point review of systems is otherwise negative aside from elements mentioned in the history of present illness. (Darinel Chavez) - Physical Exam Exam: General Appearance: Alert, no distress Eyes: Pupils equal and round no pallor or injection ENT, Mouth: Mucous membranes moist Respiratory: There are no retractions, lungs are clear to auscultation Cardiovascular: Regular rate and rhythm Gastrointestinal: Positive fluid wave, ascites, mild tenderness to palpation noted in the right inguinal area Neurological: A&O, normal motor function, normal sensory exam, normal cranial nerves Skin: Warm and dry, no rashes Musculoskeletal: Neck is supple nontender Extremities: symmetrical, full range of motion (Darinel Chavez) Constitutional: Initial Vital Signs Heart Rate 70 05/05/17 10:39 Respiratory Rate 16 05/05/17 10:39 Blood Pressure 108/75 05/05/17 10:39 O2 Sat (%) 98 05/05/17 10:39 O2 Delivery Mode Room Air Allergies/Adverse Reactions: No Known Allergies Allergy (Verified 05/05/17 10:39) Home Medications: Medication Instructions Recorded Albumin 25% [Albumin 25 % (Premix)] 200 ml IV ONCE #1 soln 05/05/17 Furosemide [Lasix 20 MG (*)] 20 mg PO 05/05/17 Midodrine HCl 5 mg PO 05/05/17 Pantoprazole Sodium [Protonix 40mg 40 mg PO 05/05/17 (*)] Spironolactone [Aldactone] 50 mg PO 05/05/17 Tamsulosin HCl [Flomax 0.4 MG (*)] 0.4 mg PO 05/05/17 oxyCODONE IR [Oxycodone Ir (*)] 5 mg PO Q6 PRN #20 tab 05/05/17 Medical Decision Making - Diagnostics Imaging Results: Imaging Impressions Abdomen/Pelvis CT 05/05/17 11:03 Impression: 1. Large volume of ascites and extensive mesenteric edema. 2. Dilated right inguinal canal is filled with ascites. No inguinal hernia or mass. 3. New small left pleural effusion and left basilar compressive atelectasis. 4. Small left adrenal gland nodule is unchanged. No recurrent mass within the left nephrectomy bed. 5. Cirrhosis and extensive diverticulosis are unchanged. Findings discussed with Emergency Department physician, Dr. Darinel Chavez on May 05, 2017 at 1158 hours. Attention: This CT examination is specifically designed to evaluate patients who are clinically suspected of having acute obstructive uropathy. This examination does not use radiographic contrast, and as such, provides only a limited evaluation of the abdomen, pelvis and retroperitoneum. If there is further clinical suspicion for pathological conditions other than obstructive uropathy, a complete CT evaluation of the abdomen and pelvis utilizing intravenous, oral, and rectal contrast should be considered. Paracentesis Ultrasound 05/05/17 12:47 Impression: 1. Successful ultrasound-guided paracentesis. 2. 8800 mL removed. ED Course/Re-evaluation: The patient presents the ED for evaluation of right inguinal pain. The patient is noted to have inguinal swelling without an obvious palpable hernia. He was taken for noncontrast CT scan of the abdomen pelvis which demonstrates ascites in the inguinal canal but no evidence of a hernia. The patient did received 2 mg of IV morphine for pain control. The patient is noted to have fairly significant recurrent abdominal ascites on his examination today which is likely causing the ascites in his right inguinal region. A repeat therapeutic paracentesis was ordered by myself at 1:00 p.m. for management of these symptoms. 3pm: The patient was taken for a large volume paracentesis and tolerated the procedure well. He received IV albumin after the procedure and had 8L of ascitic fluid drained. The patient will be discharged to home with prescription fo oxycodone He is given customary aftercare and return precautions. (Darinel Chavez) Differential Diagnosis: Differential diagnosis considered includes hernia, ascites, nephrolithiasis, spontaneous bacterial peritonitis (Darinel Chavez) - Data Points Laboratory Results: Laboratory Results 05/05/17 11:25 05/05/17 11:25 05/05/17 05/05/17 05/05/17 11:25 11:25 11:25 WBC 4.29 10^3/uL 10^3/uL (3.80-9.50) RBC 3.34 10^6/uL L 10^6/uL (4.40-6.38) Hgb 10.8 g/dL L g/dL (13.7-17.5) Hct 31.9 % L % (40.0-51.0) MCV 95.5 fL fL (81.5-99.8) MCH 32.3 pg pg (27.9-34.1) MCHC 33.9 g/dL g/dL (32.4-36.7) RDW 14.8 % % (11.5-15.2) Plt Count 123 10^3/uL L 10^3/uL (150-400) MPV 9.4 fL fL (8.7-11.7) Neut % (Auto) 65.6 % % (39.3-74.2) Lymph % (Auto) 15.2 % % (15.0-45.0) Lynn % (Auto) 12.4 % % (4.5-13.0) Eos % (Auto) 6.1 % % (0.6-7.6) Baso % (Auto) 0.5 % % (0.3-1.7) Nucleat RBC Rel Count 0.0 % % (0.0-0.2) Absolute Neuts (auto) 2.82 10^3/uL 10^3/uL (1.70-6.50) Absolute Lymphs (auto) 0.65 10^3/uL L 10^3/uL (1.00-3.00) Absolute Monos (auto) 0.53 10^3/uL 10^3/uL (0.30-0.80) Absolute Eos (auto) 0.26 10^3/uL 10^3/uL (0.03-0.40) Absolute Basos (auto) 0.02 10^3/uL 10^3/uL (0.02-0.10) Absolute Nucleated RBC 0.00 10^3/uL 10^3/uL (0-0.01) Immature Gran % 0.2 % % (0.0-1.1) Immature Gran # 0.01 10^3/uL 10^3/uL (0.00-0.10) PT 16.5 SEC H SEC (12.0-15.0) INR 1.31 H (0.83-1.16) APTT 33.7 SEC SEC (23.0-38.0) Sodium 138 mEq/L mEq/L (134-144) Potassium 4.0 mEq/L mEq/L (3.5-5.2) Chloride 104 mEq/L mEq/L (97-110) Carbon Dioxide 24 mEq/l mEq/l (22-31) Anion Gap 10 mEq/L mEq/L (8-16) BUN 25 mg/dL H mg/dL (7-23) Creatinine 1.6 mg/dL H mg/dL (0.7-1.3) Estimated GFR 43 Glucose 84 mg/dL mg/dL (70-100) Calcium 10.0 mg/dL mg/dL (8.5-10.4) Total Bilirubin 2.3 mg/dL H mg/dL (0.1-1.4) Conjugated Bilirubin 0.4 mg/dL mg/dL (0.0-0.5) Unconjugated Bilirubin 1.9 mg/dL H mg/dL (0.0-1.1) AST 27 IU/L IU/L (17-59) ALT 30 IU/L IU/L (21-72) Alkaline Phosphatase 90 IU/L IU/L (38-126) Total Protein 5.5 g/dL L g/dL (6.3-8.2) Albumin 3.0 g/dL L g/dL (3.5-5.0) Medications Given: Discontinued Medications Albumin Human (Flexbumin 25 % (Premix)) 200 mls @ 0 mls/hr IV ONCE ONE PRN Reason: As Directed Stop: 05/05/17 16:59 Last Admin: 05/05/17 17:20 Dose: 200 mls Morphine Sulfate (Morphine) 2 mg IVP EDNOW ONE Stop: 05/05/17 11:03 Last Admin: 05/05/17 11:24 Dose: 2 mg Departure - Departure Disposition: Home, Routine, Self-Care Clinical Impression: Ascites Qualifiers: Ascites type: due to alcoholic cirrhosis Qualified Code(s): K70.31 - Alcoholic cirrhosis of liver with ascites Groin pain Qualifiers: Laterality: right Qualified Code(s): R10.31 - Right lower quadrant pain Condition: Good Instructions: Groin Pain (ED) Additional Instructions: 1. Return to the ED for increasing abdominal pain, fever, vomiting or other concerns. 2. Oxycodone as needed for pain. 3. Please schedule a follow-up appointment with your regular classified advertising clerk for a recheck in the week. Referrals: He Osei MD [Primary Care Provider] - As per Instructions Prescriptions: oxyCODONE IR [Oxycodone Ir (*)] 5 mg PO Q6 PRN #20 tab PRN Reason: for pain
[2017-05-05 11:43] LABS: % IMMATURE GRANULYOCYTES 0.2 % (0.0-1.1); ABSOLUTE IMMATURE GRANULOCYTES 0.01 10^3/uL (0.00-0.10); ADD DIFF? NO; ADD MORPH? NO; ADD SCAN? NO; ATYPICAL LYMPHOCYTE FLAG 10 (0-99); FRAGMENT RBC FLAG 0 (0-99); HEMATOCRIT 31.9 % (40.0-51.0); HEMOGLOBIN 10.8 g/dL (13.7-17.5); LEFT SHIFT FLG 0 (0-99); LIPEMIA HEMOLYSIS FLAG 90 (0-99); MEAN CELL HEMOGLOBIN 32.3 pg (27.9-34.1); MEAN CELL HEMOGLOBIN CONCENTR. 33.9 g/dL (32.4-36.7); MEAN CELL VOLUME 95.5 fL (81.5-99.8); MEAN PLATELET VOLUME 9.4 fL (8.7-11.7); PLATELET CLUMPS FLAG 0 (0-99); PLATELET COUNT 123 10^3/uL (150-400); RED BLOOD CELL COUNT 3.34 10^6/uL (4.40-6.38); RED CELL DISTRIBUTION WIDTH 14.8 % (11.5-15.2)
[2017-05-05 11:52] LABS: INR 1.31 (0.83-1.16); PROTIME(PATIENT) 16.5 SEC (12.0-15.0)
[2017-05-05 11:53] LABS: APTT 33.7 SEC (23.0-38.0)
[2017-05-05 12:00] LABS: ALANINE AMINOTRANSFERASE 30 IU/L (21-72); ALKALINE PHOSPHATASE 90 IU/L (38-126); ANION GAP 10 mEq/L (8-16); ASPARTATE AMINOTRANSFERASE 27 IU/L (17-59); BILIRUBIN,TOTAL 2.3 mg/dL (0.1-1.4); BILIRUBIN-CONJUGATED 0.4 mg/dL (0.0-0.5); BILIRUBIN-UNCONJUGATED 1.9 mg/dL (0.0-1.1); CARBON DIOXIDE 24 mEq/l (22-31); CHLORIDE 104 mEq/L (97-110); CREATININE 1.6 mg/dL (0.7-1.3); GLOMERULAR FILTRATION RATE 43; GLUCOSE 84 mg/dL (70-100); SODIUM 138 mEq/L (134-144); TOTAL PROTEIN 5.5 g/dL (6.3-8.2)
[2017-05-05 14:45] VITALS: RESP 16
[2017-05-05] MEDS ORDERED: LIDOCAINE 1% 300 MG/30 ML SDV ONE (15:20)
[2017-05-05 15:49] VITALS: TEMP 97.7
[2017-05-05] MEDS ORDERED: ALBUMIN 25% 200 ML IV ONE (16:58)
[2017-05-05 18:05] VITALS: BP 101/62; PULSE 61; O2SAT 99
== END 2017-05-05 18:23 | disposition home or self-care (01) ==
DX: K70.31 Alcoholic cirrhosis of liver with ascites (principal); E11.9 Type 2 diabetes mellitus without complications; Z85.528 Personal history of other malignant neoplasm of kidney; Z90.49 Acquired absence of other specified parts of digestive tract
CPT/HCPCS: 74176; 96374; 96375; 99285; P9047

== ENCOUNTER → 2017-05-13 | Outpatient (CLI) | payer OTHER ==
[~2017-05-13] MED LIST changes: -LIDOCAINE 1% 300 MG/30 ML SDV ONE
== END ==
LOC: FIMAGING 13:39
PROVIDERS: ATTEND Internal Medicine
DX: R18.8 Other ascites (principal)
CPT/HCPCS: P9047

== ENCOUNTER → 2017-05-19 | Outpatient (CLI) | payer OTHER ==
[~2017-05-19] MED LIST changes: +LIDOCAINE 1% 300 MG/30 ML SDV ONE
== END ==
LOC: FIMAGING 08:59
PROVIDERS: ATTEND Internal Medicine
PROC: 0W9F3ZZ Drainage of Abdominal Wall, Percutaneous Approach (ICD-10-PCS; principal; 2017-05-19)
DX: R18.8 Other ascites (principal)
CPT/HCPCS: 49083; P9047

== ENCOUNTER → 2017-06-02 | Outpatient (CLI) | payer OTHER | LOC: FIMAGING 09:28 | PROVIDERS: ATTEND Internal Medicine | PROC: 0D9W3ZZ Drainage of Peritoneum, Percutaneous Approach (ICD-10-PCS; principal; 2017-06-02) | DX: R18.8 Other ascites (principal) | CPT/HCPCS: 49083; P9047 ==

== ENCOUNTER → 2017-06-09 | Outpatient (CLI) | payer OTHER | LOC: FIMAGING 09:12 | PROVIDERS: ATTEND Internal Medicine | PROC: 0W9G3ZZ Drainage of Peritoneal Cavity, Percutaneous Approach (ICD-10-PCS; principal; 2017-06-09) | DX: R18.8 Other ascites (principal) | CPT/HCPCS: 49083; P9047 ==

== ENCOUNTER → 2017-06-16 | Outpatient (CLI) | payer OTHER | LOC: FIMAGING 09:11 | PROVIDERS: ATTEND Internal Medicine | PROC: 0W9F3ZZ Drainage of Abdominal Wall, Percutaneous Approach (ICD-10-PCS; principal; 2017-06-16) | DX: R18.8 Other ascites (principal) | CPT/HCPCS: 49083; P9047 ==

== ENCOUNTER → 2017-06-23 | Outpatient (CLI) | payer OTHER | LOC: FIMAGING 09:04 | PROVIDERS: ATTEND Internal Medicine | PROC: 0W9F3ZZ Drainage of Abdominal Wall, Percutaneous Approach (ICD-10-PCS; principal; 2017-06-23) | DX: R18.8 Other ascites (principal); N18.6 End stage renal disease | CPT/HCPCS: 49083; P9047 ==

== ENCOUNTER → 2017-06-30 | Outpatient (CLI) | payer OTHER | LOC: FIMAGING 08:56 | PROVIDERS: ATTEND Internal Medicine | PROC: 0W9F30Z Drainage of Abdominal Wall with Drainage Device, Percutaneous Approach (ICD-10-PCS; principal; 2017-06-30) | DX: R18.8 Other ascites (principal) | CPT/HCPCS: 49083; P9047 ==

== ENCOUNTER → 2017-07-07 | Outpatient (CLI) | payer OTHER | LOC: FIMAGING 13:22 | PROVIDERS: ATTEND Internal Medicine | PROC: 0D9W30Z Drainage of Peritoneum with Drainage Device, Percutaneous Approach (ICD-10-PCS; principal; 2017-07-07) | DX: R18.8 Other ascites (principal); K76.9 Liver disease, unspecified | CPT/HCPCS: 49083; P9047 ==

== ENCOUNTER → 2017-07-14 | Outpatient (CLI) | payer OTHER | LOC: FIMAGING 09:02 | PROVIDERS: ATTEND Internal Medicine | PROC: 0W9F3ZZ Drainage of Abdominal Wall, Percutaneous Approach (ICD-10-PCS; principal; 2017-07-14) | DX: R18.8 Other ascites (principal); K74.60 Unspecified cirrhosis of liver | CPT/HCPCS: 49083; P9047 ==

== ENCOUNTER → 2017-07-21 | Outpatient (CLI) | payer OTHER ==
[~2017-07-21] MED LIST changes: -LIDOCAINE 1% 300 MG/30 ML SDV ONE
== END ==
LOC: FIMAGING 08:56
PROVIDERS: ATTEND Internal Medicine
PROC: 0W9F3ZZ Drainage of Abdominal Wall, Percutaneous Approach (ICD-10-PCS; principal; 2017-07-21)
DX: R18.8 Other ascites (principal)
CPT/HCPCS: 49083; P9047

== ENCOUNTER → 2017-07-25 | Outpatient (CLI) | payer OTHER | LOC: CIMAGING 15:07 | PROVIDERS: ATTEND Internal Medicine | DX: R18.8 Other ascites (principal) | CPT/HCPCS: 76882-PO ==

== ENCOUNTER → 2017-07-28 | Outpatient (CLI) | payer OTHER ==
[~2017-07-28] MED LIST changes: -ALBUMIN 25% 100 ML SOLN IV ONE; +ALBUMIN 25% 50 ML SOLN IV ONE; +LIDOCAINE 1% 300 MG/30 ML SDV ONE
== END ==
LOC: FIMAGING 08:56
PROVIDERS: ATTEND Internal Medicine
PROC: 0W9F3ZZ Drainage of Abdominal Wall, Percutaneous Approach (ICD-10-PCS; principal; 2017-07-28)
DX: R18.8 Other ascites (principal)
CPT/HCPCS: 49083; P9047

== ENCOUNTER 2017-07-30 19:10 | Emergency (ER) | payer OTHER ==
[2017-07-30 19:15] VITALS: RESP 18
--- NOTE | 2017-07-30 19:40 | EDPHY ---
General Time Seen by Provider: 07/30/17 19:35 Narrative: CHIEF COMPLAINT: Abdominal and groin pain HISTORY OF PRESENT ILLNESS: Patient complains of lower abdominal and right groin pain. This started abruptly within the past 90 min. He was sitting on the ground with his granddaughter when he moved and "strained" for a moment. He developed a sudden onset of pain in the lower but central abdomen. Also in the right groin. It is severe. It is constant. Worse with Valsalva, lifting his head off the bed or with movement. No testicular pain. He is starting to improve at rest. He has had no nausea or vomiting. No constipation. No trauma or injury. Does have a complex abdominal pathology with history of Coleman and cirrhosis. He takes albumin once a week and has a therapeutic paracentesis once weekly. Last on . He said complex ongoing right groin pain is well with no formal diagnoses other than edema. Negative ultrasound done this week. Has an appointment on with surgeon. He has no other associated complaints or modifying factors. REVIEW OF SYSTEMS: Ten systems reviewed and are negative unless otherwise noted in the HPI PCP: Dr. Osei SPECIALISTS: Dr. Schroeder, GI Dr. Santiago, Nephro Dr. Medeiros, Urology Dr. Chen, General Surgeon PAST MEDICAL HISTORY: Complex medical history significant for COLEMAN with ascites, renal carcinoma status post nephrectomy, type 2 diabetic PAST SURGICAL HISTORY: Nephrectomy, cholecystectomy, SOCIAL HISTORY: Nonsmoker. Lives independently with his spouse locally. FAMILY HISTORY: Noncontributory EXAMINATION General Appearance: Alert, no distress Head: normocephalic, atraumatic Eyes: Pupils equal and round, no conjunctival pallor or injection. Mild scleral icterus. ENT, Mouth: Mucous membranes moist Neck: Normal inspection, supple, non-tender Respiratory: Lungs are clear to auscultation. No wheezing or rhonchi or diminishment. Mild crackles at the base. Cardiovascular: Regular rate and rhythm. No murmur Gastrointestinal: Obese Abdomen is soft and positive fluid wave. There is no tenderness of the upper abdomen. There is mild tenderness in the suprapubic region. No guarding. No rigidity. There is a firm palpable structure in the right groin and in for pubic region. : Difficult to determine inguinal versus femoral type hernia due to habitus. There is no tenderness of the right or left testicle. Circumcised penis without any skin changes. Neurological: A&O, nonfocal, antalgic but steady gait Skin: Warm and dry, no rash. Superficial area of skin eruption on the left lower quadrant from recent paracentesis Extremities: Nontender, symmetric lower extremity pedal edema. Psychiatric: Mood and affect normal DIFFERENTIAL DIAGNOSES: Including but not limited to inguinal hernia, femoral hernia, strangulated hernia, crush with hernia muscular strain, diverticulitis, colitis MDM: 7:45 p.m. Acute abdominal and right groin pain with high clinical suspicion of inguinal hernia versus femoral hernia. No testicular pain. Difficult to get a good examination due to the body habitus. His vital signs are within normal limits but I do feel he warrants imaging at this time. I discussed with Dr. Negrete and he agrees with the plan. I have ordered CT scan abdomen pelvis at this time. I have ordered this without contrast because he is status post nephrectomy. 8:15 p.m. Labs are chronically abnormal with no significant changes for him. CT scan pending. 8:47 p.m Case discussed with radiologist Dr. Everardo Foster. No hernia but there is an increase in the fluid present in the right inguinal canal and hemiscrotum. No acute findings otherwise. 9:05 p.m. Patient re-evaluated. I discussed the CT scan findings. I discussed the chronic appearance of his labs that are unchanged. I discuss IV pain control and he has declined. We discussed admission versus discharge home with pain control. At this time he is feeling significantly better would like to go home. He has no testicular pain. He does not wish to be admitted. He does not wish to take any oral or IV pain medication. He would like prescriptions take at home should he need it. I will provide a prescription of oxycodone IR without acetaminophen given his history. He is to contact his senior materials scientist and/ or primary care physician to discuss long-term duration of the should he warrants any further pain control. Additionally as an appointment with the general surgeon on , and he will contact them on Tuesday to see if they would like him to come in sooner. We discussed ED precautions for any worsening pain, vomiting, constipation. At this time he would like to be discharged home and I do feel he is stable to do so. SUPERVISION: Patient was independently examined, but I discussed the case with my secondary supervising physician Dr. Negrete - History Smoking Status: Never smoked - Objective Vital Signs: Initial Vital Signs Temperature (C) 97.3 F 07/30/17 19:11 Heart Rate 72 07/30/17 19:11 Respiratory Rate 18 07/30/17 19:11 Blood Pressure 106/65 07/30/17 19:11 O2 Sat (%) 100 07/30/17 19:11 O2 Delivery Mode Room Air Allergies/Adverse Reactions: No Known Allergies Allergy (Verified 05/05/17 10:39) Home Medications: Medication Instructions Recorded Albumin 25% [Albumin 25 % (Premix)] 200 ml IV ONCE #1 soln 05/05/17 Furosemide [Lasix 20 MG (*)] 20 mg PO 05/05/17 Midodrine HCl 5 mg PO 05/05/17 Pantoprazole Sodium [Protonix 40mg 40 mg PO 05/05/17 (*)] Spironolactone [Aldactone] 50 mg PO 05/05/17 Tamsulosin HCl [Flomax 0.4 MG (*)] 0.4 mg PO 05/05/17 oxyCODONE IR [Oxycodone Ir (*)] 5 mg PO Q6 PRN #20 tab 05/05/17 oxyCODONE IR [Oxycodone Ir (*)] 5 mg PO Q6 #11 tab 07/30/17 Departure - Departure Disposition: Home, Routine, Self-Care Clinical Impression: Inguinal fluid collection Abdominal pain Qualifiers: Abdominal location: lower abdomen, unspecified Qualified Code(s): R10.30 - Lower abdominal pain, unspecified Condition: Good Instructions: Ascites (ED), Groin Pain (ED) Additional Instructions: 1. Oxycodone prescription sparingly as prescribed as needed 2. Contact your established senior materials scientist, primary care physician and GI physician for further outpatient management 3. Return to emergency department immediately for worsening pain, vomiting, constipation or any testicular pain Referrals: He Osei MD [Primary Care Provider] - As per Instructions Brian Santiago MD [Medical Doctor] - As per Instructions Brian Schroeder [Medical Doctor] - As per Instructions Mike Chen MD [Medical Doctor] - As per Instructions Prescriptions: oxyCODONE IR [Oxycodone Ir (*)] 5 mg PO Q6 #11 tab
[2017-07-30 19:47] LABS: PLATELET COUNT 95 10^3/uL (150-400)
[2017-07-30 19:51] LABS: INR 1.31 (0.83-1.16); PROTIME(PATIENT) 16.5 SEC (12.0-15.0)
[2017-07-30 21:18] VITALS: BP 114/73; PULSE 69; TEMP 98.6; O2SAT 97
== END 2017-07-30 21:20 | disposition home or self-care (01) ==
DX: R18.8 Other ascites (principal); E11.9 Type 2 diabetes mellitus without complications; Z85.528 Personal history of other malignant neoplasm of kidney; Z90.49 Acquired absence of other specified parts of digestive tract

== ENCOUNTER → 2017-08-04 | Outpatient (CLI) | payer OTHER ==
[~2017-08-04] MED LIST changes: -ALBUMIN 25% 50 ML SOLN IV ONE
== END ==
LOC: FIMAGING 09:37
PROVIDERS: ATTEND Internal Medicine
DX: R18.8 Other ascites (principal)

== ENCOUNTER → 2017-08-10 | Outpatient (CLI) | payer OTHER ==
[~2017-08-10] MED LIST changes: +ALBUMIN 25% 100 ML SOLN IV ONE
== END ==
LOC: FIMAGING 08:23
PROVIDERS: ATTEND Radiology Diagnostic Radiology
PROC: 0D9W3ZX Drainage of Peritoneum, Percutaneous Approach, Diagnostic (ICD-10-PCS; principal; 2017-08-10)
PROC: BD47ZZZ Ultrasonography of Gastrointestinal Tract (ICD-10-PCS; principal; 2017-08-10)
DX: R18.8 Other ascites (principal); N18.6 End stage renal disease
CPT/HCPCS: 49083; P9047

== ENCOUNTER 2017-08-11 05:47 | Observation (INO) | payer OTHER ==
[2017-08-11] MEDS ORDERED: ceFAZolin 2 GM/SWFI 2 GM/20 ML SYR IVP ONE (06:42)
[2017-08-11] MEDS ORDERED: NS 1,000 ML IV ONE (07:12)
--- NOTE | 2017-08-11 07:24 | PDHPUP ---
History & Physical Update H&P update statement: This history and physical update is based on an assessment of the patient which was completed after admission or registration (within 24 hours), but prior to the surgery/procedure. H&P update: H&P reviewed & patient examined, no change in patient's condition since H&P completed
--- NOTE | 2017-08-11 07:49 | PDANEPAE ---
ANE History of Present Illness RIH open ANE Past Medical History - Cardiovascular History Hx Hypertension: Yes Hx Arrhythmias: No Hx Chest Pain: No Hx Coronary Artery / Peripheral Vascular Disease: Yes Hx CHF / Valvular Disease: Yes Hx Palpitations: No Cardiovascular History Comment: Pt has dx of essential HTN, but pt on midodrine. (vasopressor). hx of CP nothing recent - Pulmonary History Hx COPD: No Hx Asthma/Reactive Airway Disease: No Hx Recent Upper Respiratory Infection: No Hx Oxygen in Use at Home: No Hx Sleep Apnea: No Sleep Apnea Screening Result - Last Documented: Negative Pulmonary History Comment: pulmonary emboli - Neurologic History Hx Cerebrovascular Accident: No Hx Seizures: No Hx Dementia: No - Endocrine History Hx Diabetes: No Hypothyroid: No Hyperthyroid: No Obesity: no Endocrine History Comment: tx w/metformin and diet - Renal History Hx Renal Disorders: Yes Renal History Comment: renal neoplasm L side. Left nephrectomy 2016 - Liver History Hx Hepatic Disorders: Yes Hepatic History Comment: non- alchoholic steatohepatitis - Neurological & Psychiatric Hx Hx Neurological and Psychiatric Disorders: Yes Neurological / Psychiatric History Comment: C2-C4 spinal stenosis - Cancer History Hx Cancer: Yes Cancer History Comment: renal - Congenital Disorder History Hx Congenital Disorders: Yes Congenital History Comment: GI issues - GI History Hx Gastrointestinal Disorders: Yes Gastrointestinal History Comment: diverticulosis,diverticulitis. 07-16-16. IBS. Enlarged spleen. pt gets weekly paracentesis - Other Health History Other Health History: hx of Borrego's palsy, R Trigeminal neuralgia. TMJ,. Healing blister from tape on drapes - Chronic Pain History Chronic Pain: No - Surgical History Prior Surgeries: L knee scope. ureteroscopy x3 1983,1998,2014. ANE Review of Systems Review of Systems: - Exercise capacity METS (RN): 3 METS - Systems Constitutional: Reports: no symptoms EENMT: Reports: no symptoms Cardiac: Reports: no symptoms Respiratory: Reports: shortness of breath Hematologic/Lymphatic: Reports: anemia ANE Patient History - Allergies Allergies/Adverse Reactions: No Known Allergies Allergy (Verified 08/11/17 06:56) - Home Medications Home Medications: Midodrine HCl 5 mg PO TID 05/05/17 [Last Taken 08/11/17 05:00] Pantoprazole Sodium [Protonix 40mg (*)] 40 mg PO DAILY 05/05/17 [Last Taken 01/21 05:00] Spironolactone [Aldactone] 50 mg PO DAILY 05/05/17 [Last Taken 08/10/17] Tamsulosin HCl [Flomax 0.4 MG (*)] 0.8 mg PO DAILY 05/05/17 [Last Taken 05:00] Albumin Human [Albumin (Human)] 50 ml IV MO 08/09/17 [Last Taken 08/10/17] Cetirizine [ZyrTEC 10 mg (*)] 10 mg PO DAILY 08/09/17 [Last Taken 08/10/17] Cyanocobalamin [Vitamin B12 (*)] 1,000 mcg PO DAILY 08/09/17 [Last Taken ] Ferrous Sulfate [Ferrous Sulf 325 MG (*)] 325 mg PO DAILY 08/09/17 [Last Taken 08/04/17] Furosemide [Lasix 40 MG (*)] 40 mg PO BID 08/09/17 [Last Taken 08/10/17] Herbals/Supplements -Info Only 1 ea PO DAILY 08/09/17 [Last Taken 08/04/17] Lasix 40mg Iv 1 each IV MO 08/09/17 [Last Taken 08/10/17] Rifaximin [Xifaxan] 550 mg PO BID 08/09/17 [Last Taken 08/11/17 05:00] Spironolactone [Aldactone 25 MG (*)] 25 mg PO HS 08/09/17 [Last Taken 08/10/17] - NPO status NPO Status: no food or drink >8 hours NPO Since - Liquids (Date): 08/10/17 NPO Since - Liquids (Time): 23:00 NPO Since - Solids (Date): 08/10/17 NPO Since - Solids (Time): 22:00 - Smoking Hx Smoking Status: Never smoked - Family Anes Hx Family Hx Anesthesia Complications: none ANE Labs/Vital Signs - Vital Signs Blood Pressure: 108/68 Heart Rate: 67 Respiratory Rate: 16 O2 Sat (%): 98 Height: 177.8 cm Weight: 88.451 kg ANE Physical Exam - Airway Neck exam: decreased ROM Mouth exam: normal dental/mouth exam - Pulmonary Pulmonary: no respiratory distress - Cardiovascular Cardiovascular: regular rate and rhythym - ASA Status ASA Status: IV ANE Anesthesia Plan Anesthesia Plan: MAC Total IV Anesthesia: Yes
[2017-08-11] MEDS ORDERED: BUPIVACAINE 0.5% 10 ML SDV ONE (07:52)
[2017-08-11] MEDS ORDERED: PROPOFOL 200 MG/20 ML VIAL ONE ×2 (08:09)
[2017-08-11] MEDS ORDERED: fentaNYL 100 MCG/2 ML INJ ONE (08:09)
[2017-08-11] MEDS ORDERED: DEXAMETHASONE 4 MG/ML VIAL ONE (08:46)
[2017-08-11] MEDS ORDERED: ONDANSETRON 4 MG/2 ML VIAL ONE (08:47)
[2017-08-11] MEDS ORDERED: fentaNYL 100 MCG/2 ML INJ IVP PRN (08:56)
[2017-08-11] MEDS ORDERED: ONDANSETRON 4 MG/2 ML VIAL IVP PRN (08:56)
[2017-08-11] MEDS ORDERED: NALOXONE HCL 0.4 MG/ML INJ IVP PRN (08:56)
[2017-08-11] MEDS ORDERED: HYDROCODONE/APAP 5/325 TAB PO PRN (09:32)
[2017-08-11] MEDS ORDERED: ACETAMINOPHEN 325 MG TAB PO PRN (09:32)
[2017-08-11] MEDS ORDERED: HYDROmorphONE/DILAUDID 1 MG/ML INJ IVP PRN (09:32)
[2017-08-11] MEDS ORDERED: IBUPROFEN 200 MG TAB PO PRN (09:32)
[2017-08-11] MEDS ORDERED: ONDANSETRON DISINTEGRATING 4 MG TAB PO PRN (09:32)
--- NOTE | 2017-08-11 09:32 | POSTOPPROG ---
Post Op Note Date of Operation: 08/11/17 Surgeon: Mike Chen Mlt: Alex Anesthesiologist: Dwight Anesthesia: GET(General Endotracheal) Pre-op Diagnosis: Right inguinal hernia Post-op Diagnosis: same Indication: Pain Procedure: Right inguinal hernia repair with mesh Findings: indirect inguinal hernia Inf/Abcess present in the surg proc area at time of surgery?: No EBL: Minimal Specimen(s): Hernia sac
[2017-08-11] MEDS ORDERED: NS 1,000 ML IV SCH (09:45)
--- NOTE | 2017-08-11 12:30 | POSTANESTH ---
Post Anesthetic Evaluation Cardiovascular Status: Similar to Pre-Op Cond Respiratory Status: Similar to Pre-op Cond. Level of Consciousness/Mental Status: Can Participate in Eval Pain Control: Adequate, Prn Tx Ordered Nausea/Vomiting Control: Adequate, Prn Tx Ordered Complications Possibly Related to Anesthesia: None Noted
[2017-08-11] MEDS: MIDODRINE HCL 5 MG TAB PO SCH ×2 (16:54→20:56)
[2017-08-11] MEDS: RIFAXIMIN 550 MG TAB PO SCH (20:55)
[2017-08-11] MEDS: FUROSEMIDE 40 MG TAB PO SCH (20:55)
[2017-08-11] MEDS ORDERED: SPIRONOLACTONE 25 MG TAB PO SCH (21:00)
[2017-08-11 22:27] VITALS: RESP 16
[2017-08-12 07:28] VITALS: BP 100/59; PULSE 72; TEMP 98.3; O2SAT 92
--- NOTE | 2017-08-12 08:25 | SOAPPROG ---
SOAP Progress Note Assessment/Plan: Assessment: 71 y/o male s/p open right inguinal hernia repair 08/11 S: Doing very well, denies pain. Eager to be discharged. Passing gas, no BM yet O: Alert Afebrile No WOB RRR Abdomen soft, nontender, +BS Plan: Discharge today. Discussed with Dr. Chen. 08/12/17 08:24 Objective: Vital Signs Temp Pulse Resp BP Pulse Ox 36.8 C 72 16 100/59 L 92 08/12/17 07:27 08/12/17 07:27 08/12/17 07:27 08/12/17 07:27 08/12/17 07:27 Laboratory Results 08/12/17 04:33 08/11/17 08/12/17 08/13/17 05:59 05:59 05:59 Intake Total 2300 Balance 2300 ICD10 Worksheet Patient Problems: Problems Problem Status Onset Ascites Acute Ascites Acute Chest pain Acute Cholelithiases Acute Cirrhosis Acute Cirrhosis Acute Clostridium difficile infection Acute ~01/22/17 Left renal mass Acute Pulmonary embolism Acute Renal insufficiency Acute
[2017-08-12] MEDS ORDERED: ENOXAPARIN 40 MG/0.4 ML SYR SC SCH (09:00)
[2017-08-12] MEDS ORDERED: SPIRONOLACTONE 50 MG TAB PO SCH (09:00)
[2017-08-12] MEDS ORDERED: CETIRIZINE 10 MG TAB PO SCH (09:00)
[2017-08-12] MEDS ORDERED: PANTOPRAZOLE SODIUM 40 MG TAB PO SCH (09:00)
[2017-08-12] MEDS ORDERED: TAMSULOSIN HCL 0.4 MG CAP PO SCH (09:00)
[2017-08-12] MEDS: RIFAXIMIN 550 MG TAB PO SCH (09:36)
[2017-08-12] MEDS: FUROSEMIDE 40 MG TAB PO SCH (09:36)
[2017-08-12] MEDS: MIDODRINE HCL 5 MG TAB PO SCH (09:37)
[2017-08-15] MEDS ORDERED: ALBUMIN HUMAN IV SCH ×2 (13:52→14:21)
[2017-08-15] MEDS ORDERED: LASIX 40 MG IV SCH (13:52)
[2017-08-15] MEDS ORDERED: FUROSEMIDE 40 MG/4 ML VIAL IVP SCH (14:20)
== END 2017-08-12 10:26 | disposition home or self-care (01) ==
LOC: F3N 05:47 → F3E 11:41
PROVIDERS: ADMIT Surgery; ATTEND Surgery
PROC: 0YU50JZ Supplement Right Inguinal Region with Synthetic Substitute, Open Approach (ICD-10-PCS; principal; 2017-08-11 08:00)
DX: K40.90 Unilateral inguinal hernia, without obstruction or gangrene, not specified as recurrent (principal); K75.81 Nonalcoholic steatohepatitis (NASH); K74.60 Unspecified cirrhosis of liver; I10 Essential (primary) hypertension; Z90.5 Acquired absence of kidney; Z85.528 Personal history of other malignant neoplasm of kidney
CPT/HCPCS: 49505; 74018; C1781; G0378; J0690; J1100; J1650; J2405; J2704; J3010

== ENCOUNTER → 2017-08-18 | Outpatient (CLI) | payer OTHER ==
[~2017-08-18] MED LIST changes: -ALBUMIN 25% 100 ML SOLN IV ONE
--- NOTE | 2017-08-18 10:42 | PDRADPN ---
Radiology Procedure Note Date of Procedure: 08/18/17 Radiologist: Rudolph Calles Anesthesia: Local (Specify) Pre-op Diagnosis: ascites Post-op Diagnosis: same Indication: therapeutic/diagnostic Procedure: paracentesis Finding(s): cloudy yellow fluid Inf/Abcess present in the surg proc area at time of surgery?: No Depth: Organ Space EBL: Minimal Complications: none Specimen(s): fluid specimen submitted to lab
== END ==
LOC: FIMAGING 09:55
PROVIDERS: ATTEND Internal Medicine
PROC: 0W9G3ZZ Drainage of Peritoneal Cavity, Percutaneous Approach (ICD-10-PCS; principal; 2017-08-18)
DX: R18.8 Other ascites (principal); C22.9 Malignant neoplasm of liver, not specified as primary or secondary

== ENCOUNTER → 2017-08-25 | Outpatient (CLI) | payer OTHER | LOC: FIMAGING 10:08 | PROVIDERS: ATTEND Internal Medicine | DX: R18.8 Other ascites (principal) ==

== ENCOUNTER → 2017-09-01 | Outpatient (CLI) | payer OTHER ==
[~2017-09-01] MED LIST changes: +ALBUMIN 25% 100 ML SOLN IV ONE
== END ==
LOC: FIMAGING 10:01
PROVIDERS: ATTEND Internal Medicine
PROC: 0W9G3ZZ Drainage of Peritoneal Cavity, Percutaneous Approach (ICD-10-PCS; principal; 2017-09-01)
DX: R18.8 Other ascites (principal)
CPT/HCPCS: 49083; P9047

== ENCOUNTER → 2017-09-08 | Outpatient (CLI) | payer OTHER | LOC: FIMAGING 10:03 | PROVIDERS: ATTEND Internal Medicine | PROC: 0W9F30Z Drainage of Abdominal Wall with Drainage Device, Percutaneous Approach (ICD-10-PCS; principal; 2017-09-08) | DX: R18.8 Other ascites (principal) | CPT/HCPCS: 49083; P9047 ==

== ENCOUNTER → 2017-09-15 | Outpatient (CLI) | payer OTHER ==
[~2017-09-15] MED LIST changes: -ALBUMIN 25% 100 ML SOLN IV ONE
== END ==
LOC: FIMAGING 09:56
PROVIDERS: ATTEND Internal Medicine
DX: R18.8 Other ascites (principal)

== ENCOUNTER → 2017-09-22 | Outpatient (CLI) | payer OTHER ==
[~2017-09-22] MED LIST changes: +ALBUMIN 25% 100 ML SOLN IV ONE
== END ==
LOC: FIMAGING 10:21
PROVIDERS: ATTEND Radiology Diagnostic Radiology
PROC: BW40ZZZ Ultrasonography of Abdomen (ICD-10-PCS; principal; 2017-09-22)
PROC: 0D9W3ZZ Drainage of Peritoneum, Percutaneous Approach (ICD-10-PCS; principal; 2017-09-22)
DX: R18.8 Other ascites (principal)
CPT/HCPCS: 49083; P9047

== ENCOUNTER → 2017-09-29 | Outpatient (CLI) | payer OTHER | LOC: FIMAGING 10:12 | PROVIDERS: ATTEND Internal Medicine | DX: R18.8 Other ascites (principal) ==

== ENCOUNTER → 2017-10-06 | Outpatient (CLI) | payer OTHER | LOC: FIMAGING 10:01 | PROVIDERS: ATTEND Internal Medicine | PROC: 0W9F30Z Drainage of Abdominal Wall with Drainage Device, Percutaneous Approach (ICD-10-PCS; principal; 2017-10-06) | DX: R18.8 Other ascites (principal) | CPT/HCPCS: 49083; P9047 ==

== ENCOUNTER → 2017-10-13 | Outpatient (CLI) | payer OTHER | LOC: FIMAGING 10:06 | PROVIDERS: ATTEND Internal Medicine | PROC: 0W9F3ZZ Drainage of Abdominal Wall, Percutaneous Approach (ICD-10-PCS; principal; 2017-10-13) | DX: R18.8 Other ascites (principal) | CPT/HCPCS: 49083; P9047 ==

== ENCOUNTER → 2017-10-20 | Outpatient (CLI) | payer OTHER | LOC: FIMAGING 10:13 | PROVIDERS: ATTEND Internal Medicine | DX: R18.8 Other ascites (principal) ==

== ENCOUNTER → 2017-10-27 | Outpatient (CLI) | payer OTHER | LOC: FIMAGING 09:54 | PROVIDERS: ATTEND Internal Medicine | PROC: 0W9G3ZZ Drainage of Peritoneal Cavity, Percutaneous Approach (ICD-10-PCS; principal; 2017-10-27) | DX: R18.8 Other ascites (principal) | CPT/HCPCS: 49083; P9047 ==

== ENCOUNTER → 2017-11-03 | Outpatient (CLI) | payer OTHER ==
--- NOTE | 2017-10-27 11:08 | PDRADPN ---
Radiology Procedure Note Date of Procedure: 10/27/17 Radiologist: Rudolph Calles Anesthesia: Local (Specify) Pre-op Diagnosis: recurrent ascites Post-op Diagnosis: same Indication: dx/tx Procedure: US guided RLQ paracentesis Finding(s): simple appearing large volume ascites. Fluid minimally pink. Inf/Abcess present in the surg proc area at time of surgery?: No EBL: Minimal Complications: none Specimen(s): yes
[~2017-11-03] MED LIST changes: -ALBUMIN 25% 100 ML SOLN IV ONE
== END ==
LOC: FIMAGING 09:44
PROVIDERS: ATTEND Internal Medicine
DX: R18.8 Other ascites (principal)

== ENCOUNTER → 2017-11-10 | Outpatient (CLI) | payer OTHER ==
--- NOTE | 2017-08-10 10:38 | PDRADPN ---
Radiology Procedure Note Date of Procedure: 08/10/17 Radiologist: Rudolph Calles Anesthesia: Local (Specify) Pre-op Diagnosis: ESLD Post-op Diagnosis: ESLD Indication: ascites Procedure: US guided paracentesis, dx and tx Inf/Abcess present in the surg proc area at time of surgery?: No Depth: Organ Space EBL: Minimal Complications: none Specimen(s): specimen fluid submitted for lab analysis
[~2017-11-10] MED LIST changes: +ALBUMIN 25% 100 ML SOLN IV ONE
== END ==
LOC: FIMAGING 09:52
PROVIDERS: ATTEND Internal Medicine
PROC: 0W9F3ZZ Drainage of Abdominal Wall, Percutaneous Approach (ICD-10-PCS; principal; 2017-11-10)
DX: R18.8 Other ascites (principal)
CPT/HCPCS: 49083; P9047

== ENCOUNTER → 2017-12-08 | Outpatient (CLI) | payer OTHER ==
[~2017-12-08] MED LIST changes: -ALBUMIN 25% 100 ML SOLN IV ONE
== END ==
LOC: FIMAGING 10:10
PROVIDERS: ATTEND Internal Medicine
DX: R18.8 Other ascites (principal)

== ENCOUNTER → 2017-12-14 | Outpatient (CLI) | payer OTHER | LOC: FIMAGING 12:41 | PROVIDERS: ATTEND Internal Medicine | DX: N62 Hypertrophy of breast (principal) ==

== ENCOUNTER → 2018-01-26 | Outpatient (CLI) | payer OTHER ==
[~2018-01-26] MED LIST changes: +ALBUMIN 25% 100 ML SOLN IV ONE
== END ==
LOC: FIMAGING 09:47
PROVIDERS: ATTEND Internal Medicine
PROC: 0W9G3ZX Drainage of Peritoneal Cavity, Percutaneous Approach, Diagnostic (ICD-10-PCS; principal; 2018-01-26)
DX: R18.8 Other ascites (principal)
CPT/HCPCS: 49083; 88104; 88112; 88305; P9047

== ENCOUNTER → 2018-05-16 | Outpatient (CLI) | payer OTHER | LOC: FIMAGING 09:18 | PROVIDERS: ATTEND Internal Medicine Gastroenterology | DX: K74.60 Unspecified cirrhosis of liver (principal); R16.1 Splenomegaly, not elsewhere classified; R18.8 Other ascites ==

== ENCOUNTER → 2018-05-23 | Outpatient (CLI) | payer OTHER | LOC: FIMAGING 11:46 | PROVIDERS: ATTEND Internal Medicine | PROC: 0D9W3ZZ Drainage of Peritoneum, Percutaneous Approach (ICD-10-PCS; principal; 2018-05-23) | DX: R18.8 Other ascites (principal) | CPT/HCPCS: 49083; P9047 ==

== ENCOUNTER 2018-06-30 14:35 | Emergency (ER) | payer OTHER ==
--- NOTE | 2018-06-30 15:09 | EDPHY ---
HPI/HX/ROS/PE/MDM Narrative: CHIEF COMPLAINT: LLQ pain HPI: The patient is a 72 y/o male with a history of non-alcoholic cirrhosis and diverticulitis who arrives with his family member complaining of worsening LLQ pain for the last 4 days. His pain is localized to his LLQ and feels sharp with palpation. He has associated nausea, occasional dry heaving, and dark-colored urine. He initially had non-bloody diarrhea that seems to have resolved. His symptoms feel exactly the same as prior episodes of diverticulitis. He denies fever, vomiting, blood in stool. He is not on anticoagulants currently. REVIEW OF SYSTEMS: A comprehensive 10 system review of systems is otherwise negative aside from elements mentioned in the history of present illness. PMH: Liver cirrhosis - nonalcoholic; multiple paracentesis for ascites; hernia repair; diverticulitis; nephrectomy Prior medical records reviewed including recent paracentesis report 2017. SOCIAL HISTORY: Family member at bedside. Lives in [place]. PCP: Dr. Osei. PHYSICAL EXAM: General:Patient is alert, in no acute distress. ENT:Eyes are normal to inspection. ENT inspection normal. Neck: Normal inspection. Full range of motion. Respiratory:No respiratory distress. Breath sounds normal bilaterally. Cardiovascular: Regular rate and rhythm. Strong peripheral pulses. Normal cap refill. Abdomen:The abdomen has moderate LLQ tenderness to palpation. Some ascites, not significantly distended. There are no peritoneal signs. Back: Normal to inspection. No tenderness to palpation. Skin: Normal color. No rash. Warm and dry. Extremities: Normal appearance. Full range of motion. Neuro: Oriented x3. Normal motor function. Normal sensory function. ED Course: 72 y/o male with a history of cirrhosis and diverticulitis presents with a 4- day history of symptoms similar to prior episodes of diverticulitis including LLQ pain, diarrhea, nausea. He has moderate LLQ tenderness on exam without significant distension. He is afebrile and does not appear systemically ill. Plan for IV, labs, UA, GI pathogen panel. Bilirubin elevated, creatinine elevated. Other labs unremarkable. Abdominal x-ray: constipation Reassessed patient and discussed findings and treatment options. These included performing an abdominal CT with IV contrast despite elevated creatinine to evaluate for diverticulitis, empiric antibiotics for possible diverticulitis with known history of c.difficile infections during antibiotic use, and discharge home with standard constipation care instructions and recommendation to return if symptoms worsen or fail to improve. Patient opted to be discharged home with constipation instructions. Return precautions discussed. He is comfortable with this plan. - Data Points Imaging Results: Imaging Impressions Abdomen X-Ray 06/30/18 16:12 Impression: Constipation. No evidence of obstruction or pneumoperitoneum. Imaging: Discussed imaging studies w/ interline clerk Radiologist, I viewed and interpreted images myself Laboratory Results: Laboratory Results 06/30/18 15:15 06/30/18 15:15 06/30/18 06/30/18 06/30/18 15:30 15:15 15:15 WBC RBC Hgb Hct MCV MCH MCHC RDW Plt Count MPV Neut % (Auto) Lymph % (Auto) [place] % (Auto) Eos % (Auto) Baso % (Auto) Nucleat RBC Rel Count Absolute Neuts (auto) Absolute Lymphs (auto) Absolute Monos (auto) Absolute Eos (auto) Absolute Basos (auto) Absolute Nucleated RBC Immature Gran % Immature Gran # Platelet Estimate Sodium 134 mEq/L L mEq/L (135-145) Potassium 3.8 mEq/L mEq/L (3.5-5.2) Chloride 107 mEq/L mEq/L (97-110) Carbon Dioxide 19 mEq/l L mEq/l (22-31) Anion Gap 8 mEq/L mEq/L (6-14) BUN 28 mg/dL H mg/dL (7-23) Creatinine 1.7 mg/dL H mg/dL (0.7-1.3) Estimated GFR 40 Glucose 105 mg/dL H mg/dL (70-100) Calcium 9.7 mg/dL mg/dL (8.5-10.4) Total Bilirubin 5.7 mg/dL H mg/dL (0.1-1.4) Conjugated Bilirubin 0.6 mg/dL H mg/dL (0.0-0.5) Unconjugated Bilirubin 5.1 mg/dL H mg/dL (0.0-1.1) AST 25 IU/L IU/L (17-59) ALT 19 IU/L L IU/L (21-72) Alkaline Phosphatase 77 IU/L IU/L (38-126) Total Protein 6.3 g/dL g/dL (6.3-8.2) Albumin 3.4 g/dL L g/dL (3.5-5.0) Urine Color RUKHSANA Urine Appearance HAZY Urine pH 5.0 (5.0-7.5) Ur Specific [place] 1.018 (1.002-1.030) Urine Protein NEGATIVE (NEGATIVE) Urine Ketones NEGATIVE (NEGATIVE) Urine Blood 1+ H (NEGATIVE) Urine Nitrate NEGATIVE (NEGATIVE) Urine Bilirubin NEGATIVE (NEGATIVE) Urine Urobilinogen 2.0 EU H EU (0.2-1.0) Ur Leukocyte Esterase NEGATIVE (NEGATIVE) Urine RBC 1-3 /hpf /hpf (0-3) Urine WBC 1-3 /hpf /hpf (0-3) Ur Epithelial Cells TRACE /lpf /lpf (NONE-1+) Urine Bacteria TRACE /hpf H /hpf (NONE SEEN) Hyaline Casts 5-15 /lpf /lpf (0-1) Granular Casts 1-5 /lpf /lpf (0-1) Urine Mucus TRACE /lpf /lpf (NONE-1+) Urine Glucose NEGATIVE (NEGATIVE) 06/30/18 15:15 WBC 6.43 10^3/uL 10^3/uL (3.80-9.50) RBC 4.32 10^6/uL L 10^6/uL (4.40-6.38) Hgb 14.1 g/dL g/dL (13.7-17.5) Hct 40.9 % % (40.0-51.0) MCV 94.7 fL fL (81.5-99.8) MCH 32.6 pg pg (27.9-34.1) MCHC 34.5 g/dL g/dL (32.4-36.7) RDW 14.6 % % (11.5-15.2) Plt Count 132 10^3/uL L 10^3/uL (150-400) MPV 10.3 fL fL (8.7-11.7) Neut % (Auto) 79.0 % H % (39.3-74.2) Lymph % (Auto) 8.9 % L % (15.0-45.0) [place] % (Auto) 8.4 % % (4.5-13.0) Eos % (Auto) 3.0 % % (0.6-7.6) Baso % (Auto) 0.5 % % (0.3-1.7) Nucleat RBC Rel Count 0.0 % % (0.0-0.2) Absolute Neuts (auto) 5.09 10^3/uL 10^3/uL (1.70-6.50) Absolute Lymphs (auto) 0.57 10^3/uL L 10^3/uL (1.00-3.00) Absolute Monos (auto) 0.54 10^3/uL 10^3/uL (0.30-0.80) Absolute Eos (auto) 0.19 10^3/uL 10^3/uL (0.03-0.40) Absolute Basos (auto) 0.03 10^3/uL 10^3/uL (0.02-0.10) Absolute Nucleated RBC 0.00 10^3/uL 10^3/uL (0-0.01) Immature Gran % 0.2 % % (0.0-1.1) Immature Gran # 0.01 10^3/uL 10^3/uL (0.00-0.10) Platelet Estimate TNP Sodium Potassium Chloride Carbon Dioxide Anion Gap BUN Creatinine Estimated GFR Glucose Calcium Total Bilirubin Conjugated Bilirubin Unconjugated Bilirubin AST ALT Alkaline Phosphatase Total Protein Albumin Urine Color Urine Appearance Urine pH Ur Specific [place] Urine Protein Urine Ketones Urine Blood Urine Nitrate Urine Bilirubin Urine Urobilinogen Ur Leukocyte Esterase Urine RBC Urine WBC Ur Epithelial Cells Urine Bacteria Hyaline Casts Granular Casts Urine Mucus Urine Glucose Medications Given: Discontinued Medications Sodium Chloride (Ns) 500 mls @ 0 mls/hr IV EDNOW ONE; Wide Open PRN Reason: Protocol Stop: 06/30/18 16:14 Last Admin: 06/30/18 16:43 Dose: 500 mls General Time Seen by Provider: 06/30/18 15:04 Initial Vital Signs: Initial Vital Signs Temperature (C) 36.8 C 06/30/18 14:52 Heart Rate 51 L 06/30/18 14:52 Respiratory Rate 16 06/30/18 14:52 Blood Pressure 121/67 H 06/30/18 14:52 O2 Sat (%) 96 06/30/18 14:52 O2 Delivery Mode Room Air Allergies/Adverse Reactions: No Known Allergies Allergy (Verified 06/30/18 14:57) Home Medications: Medication Instructions Recorded Midodrine HCl 5 mg PO TID 05/05/17 Pantoprazole Sodium [Protonix 40mg 40 mg PO DAILY 05/05/17 (*)] Spironolactone [Aldactone] 50 mg PO DAILY 05/05/17 Tamsulosin HCl [Flomax 0.4 MG (*)] 0.8 mg PO DAILY 05/05/17 Albumin Human [Albumin (Human)] 50 ml IV MO 08/09/17 Cetirizine [ZyrTEC 10 mg (*)] 10 mg PO DAILY 08/09/17 Cyanocobalamin [Vitamin B12 (*)] 1,000 mcg PO DAILY 08/09/17 Ferrous Sulfate [Ferrous Sulf 325 325 mg PO DAILY 08/09/17 MG (*)] Furosemide [Lasix 40 MG (*)] 40 mg PO BID 08/09/17 Lasix 40mg Iv 1 each IV MO 08/09/17 Rifaximin [Xifaxan] 550 mg PO BID 08/09/17 Spironolactone [Aldactone 25 MG 25 mg PO HS 08/09/17 (*)] Colestid 06/30/18 Coumadin 06/30/18 Labetalol HCl 06/30/18 Losartan Potassium 06/30/18 Metformin HCl 06/30/18 Symax 06/30/18 Tamsulosin HCl 06/30/18 Departure - Departure Disposition: Home, Routine, Self-Care Clinical Impression: Constipation Qualifiers: Constipation type: other constipation type Qualified Code(s): K59.09 - Other constipation Abdominal pain Qualifiers: Abdominal location: left lower quadrant Qualified Code(s): R10.32 - Left lower quadrant pain Condition: Good Instructions: Constipation (ED), Abdominal Pain (ED) Additional Instructions: Increase fluid intake. Follow up with your primary care provider on Tuesday if symptoms have not completely resolved. Return to the ED for any worsening of condition. Referrals: He Osei MD [Primary Care Provider] - As per Instructions Report Scribed for: Ziggy Rodriguez Report Scribed by: Natalia Mckay Date of Report: 06/30/18 Time of Report: 15:07 Physician Review and Approval Statement: Portions of this note were transcribed by an ED scribe. I personally performed the history, physical exam, and medical decision making; and confirm the accuracy of the information in the transcribed note.
[2018-06-30 16:01] LABS: PLATELET COUNT 132 10^3/uL (150-400)
[2018-06-30] MEDS ORDERED: NS 500 ML IV ONE (16:13)
[2018-06-30 16:49] VITALS: BP 117/85
== END 2018-06-30 17:27 | disposition home or self-care (01) ==
DX: K59.09 Other constipation (principal); R10.32 Left lower quadrant pain; E86.9 Volume depletion, unspecified

== ENCOUNTER 2018-07-05 06:07 | Inpatient (IN) | payer OTHER ==
[2018-07-05 06:38] LABS: INR 1.42 (0.83-1.16); PROTIME(PATIENT) 17.5 SEC (12.0-15.0)
[2018-07-05 06:51] LABS: PLATELET COUNT 134 10^3/uL (150-400)
--- NOTE | 2018-07-05 07:33 | EDPHY ---
H & P Time Seen by Provider: 07/05/18 07:17 HPI/ROS: Chief complaint. Abdominal pain HPI. Patient is 72-year-old male with history of cirrhosis and ascites as well as diverticulitis presents with 9 day history of abdominal pain. He was seen in the emergency department June 30 for same. At that time he had pain in the left lower quadrant. He had a abdominal x-ray which showed constipation. There was discussion of CT however his creatinine at baseline is 1.6-1.[address] was not performed at that time. Patient has been using laxatives and has started have some bowel movements beginning a couple days ago. He had decreased pain after bowel movements. However last night after dinner he had increased pain in the right side with movement and now upper abdominal pain. He describes it as cramping. No radiation to back. Nausea vomiting. Continues to have small bowel movements. No fever. No urinary symptoms though notes his urine is somewhat dark. No chest pain or shortness of breath. Again he has ascites and his last paracentesis was in May 2018. ROS 10 systems were reviewed and negative with the exception of the elements mentioned in the history of present illness Past Medical/Surgical History: Cirrhosis, diabetes, BPH, kidney cancer, kidney stones, IBS, left nephrectomy, cholecystectomy, PE Social History: , nonsmoker, no alcohol Smoking Status: Never smoked Physical Exam: General Appearance: Alert well-developed male mild distress vital signs are stable Eyes: Pupils equal and round no pallor or injection. ENT, Mouth: Mucous membranes are moist. Respiratory: There are no retractions, lungs are clear to auscultation. Cardiovascular: Regular rate and rhythm. Gastrointestinal: Abdomen is distended. Tenderness in the right and left upper quadrants. Decreased bowel sounds. No obvious masses. Ascites is present Neurological: Awake and alert, sensory and motor exams grossly normal. Skin: Warm and dry, no rashes. Musculoskeletal: Neck is supple nontender. Extremities symmetrical, full range of motion. Psychiatric: Patient is oriented X 3, there is no agitation. Constitutional: Initial Vital Signs Temperature (C) 36.7 C 07/05/18 06:12 Heart Rate 77 07/05/18 06:12 Respiratory Rate 16 07/05/18 06:12 Blood Pressure 122/77 H 07/05/18 06:12 O2 Sat (%) 93 07/05/18 06:12 O2 Delivery Mode Room Air Allergies/Adverse Reactions: No Known Allergies Allergy (Verified 07/05/18 06:10) Home Medications: Medication Instructions Recorded Midodrine HCl 5 mg PO TID 05/05/17 Pantoprazole Sodium [Protonix 40mg 40 mg PO DAILY 05/05/17 (*)] Tamsulosin HCl [Flomax 0.4 MG (*)] 0.8 mg PO DAILY 05/05/17 Albumin Human [Albumin (Human)] 50 ml IV MO 08/09/17 Cetirizine [ZyrTEC 10 mg (*)] 10 mg PO DAILY 08/09/17 Ferrous Sulfate [Ferrous Sulf 325 325 mg PO DAILY 08/09/17 MG (*)] Furosemide [Lasix 40 MG (*)] 40 mg PO BID 08/09/17 Rifaximin [Xifaxan] 550 mg PO BID 08/09/17 Spironolactone [Aldactone 25 MG 25 mg PO HS 08/09/17 (*)] Medical Decision Making - Diagnostics Imaging Results: Imaging Impressions Abdomen/Pelvis CT 07/05/18 07:34 Impression: 1. Large right breast mass versus dense extensive gynecomastia, of unknown chronicity. Correlation with physical examination is recommended. 2. Large amount of ascites, progressively increased since August 2016. 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 3. Possible left lower lobe pneumonia. 4. Other incidental findings are described above. Results discussed with Dr. Harsh Gallagher at 8:19 AM. General information for patients regarding this examination can be found at [email or web address]. If you have questions or comments about this report, please contact me at (hospital) or [phone] (cell). CT abdomen pelvis without IV contrast due to renal insufficiency shows increasing ascites. No evidence for small bowel obstruction or perforation. Incidental findings of right breast mass and left lower lobe consolidation consistent with pneumonia. Reviewed by me and discussed with Dr. Gordon One-view chest x-ray interpreted by me significant for left lower lobe infiltrate Procedures: IV normal saline. Patient currently declines medication for pain or nausea Sepsis workup including lactate and blood cultures. IV Rocephin ED Course/Re-evaluation: Re-evaluation 8:35 a.m.. Patient is stable. Patient, his , and I discussed imaging and lab results. We discussed treatment plan including recommendation for admission. He expresses understanding and agreement. Patient tells me he has had workup for his right breast mass including mammogram and ultrasound. I consulted discussed case with Dr. oBwers, hospitalist, who agrees to the admission Differential Diagnosis: I considered diverticulitis small-bowel obstruction, perforation. Noncontrast CT was performed due to chronically elevated creatinine. Incidental finding of left lower lobe infiltrate. Increasing ascites. - Data Points Laboratory Results: Laboratory Results 07/05/18 06:10 07/05/18 06:10 07/05/18 07/05/18 07/05/18 06:10 06:10 06:10 WBC 5.83 10^3/uL 10^3/uL (3.80-9.50) RBC 4.36 10^6/uL L 10^6/uL (4.40-6.38) Hgb 14.0 g/dL g/dL (13.7-17.5) Hct 40.5 % % (40.0-51.0) MCV 92.9 fL fL (81.5-99.8) MCH 32.1 pg pg (27.9-34.1) MCHC 34.6 g/dL g/dL (32.4-36.7) RDW 14.6 % % (11.5-15.2) Plt Count 134 10^3/uL L 10^3/uL (150-400) MPV 10.2 fL fL (8.7-11.7) Neut % (Auto) 87.4 % H % (39.3-74.2) Lymph % (Auto) 5.7 % L % (15.0-45.0) [place] % (Auto) 4.8 % % (4.5-13.0) Eos % (Auto) 1.7 % % (0.6-7.6) Baso % (Auto) 0.2 % L % (0.3-1.7) Nucleat RBC Rel Count 0.0 % % (0.0-0.2) Absolute Neuts (auto) 5.10 10^3/uL 10^3/uL (1.70-6.50) Absolute Lymphs (auto) 0.33 10^3/uL L 10^3/uL (1.00-3.00) Absolute Monos (auto) 0.28 10^3/uL L 10^3/uL (0.30-0.80) Absolute Eos (auto) 0.10 10^3/uL 10^3/uL (0.03-0.40) Absolute Basos (auto) 0.01 10^3/uL L 10^3/uL (0.02-0.10) Absolute Nucleated RBC 0.00 10^3/uL 10^3/uL (0-0.01) Immature Gran % 0.2 % % (0.0-1.1) Immature Gran # 0.01 10^3/uL 10^3/uL (0.00-0.10) RBC/WBC/PLT Morphology TNP Platelet Estimate TNP PT 17.5 SEC H SEC (12.0-15.0) INR 1.42 H (0.83-1.16) APTT 32.3 SEC SEC (23.0-38.0) Sodium 136 mEq/L mEq/L (135-145) Potassium 3.7 mEq/L mEq/L (3.5-5.2) Chloride 105 mEq/L mEq/L (97-110) Carbon Dioxide 22 mEq/l mEq/l (22-31) Anion Gap 9 mEq/L mEq/L (6-14) BUN 25 mg/dL H mg/dL (7-23) Creatinine 1.8 mg/dL H mg/dL (0.7-1.3) Estimated GFR 37 Glucose 111 mg/dL H mg/dL (70-100) Calcium 9.6 mg/dL mg/dL (8.5-10.4) Total Bilirubin 3.6 mg/dL H mg/dL (0.1-1.4) Conjugated Bilirubin 0.8 mg/dL H mg/dL (0.0-0.5) Unconjugated Bilirubin 2.8 mg/dL H mg/dL (0.0-1.1) AST 31 IU/L IU/L (17-59) ALT 27 IU/L IU/L (21-72) Alkaline Phosphatase 139 IU/L H IU/L (38-126) Total Protein 6.4 g/dL g/dL (6.3-8.2) Albumin 3.5 g/dL g/dL (3.5-5.0) Lipase 187 IU/L IU/L (23-300) Medications Given: Ceftriaxone Sodium/Dextrose (Rocephin 1 Gm (Premix)) 50 mls @ 100 mls/hr IV EDNOW ONE PRN Reason: Protocol Stop: 07/05/18 09:04 Last Admin: 07/05/18 08:53 Dose: 50 mls Departure - Departure Disposition: [facility] Clinical Impression: Abdominal pain Qualifiers: Abdominal location: upper abdomen, unspecified Qualified Code(s): R10.10 - Upper abdominal pain, unspecified Pneumonia Qualifiers: Pneumonia type: due to unspecified organism Laterality: left Lung location: lower lobe of lung Qualified Code(s): J18.1 - Lobar pneumonia, unspecified organism Ascites Qualifiers: Ascites type: other type Qualified Code(s): R18.8 - Other ascites Condition: Fair Referrals: He Osei MD [Primary Care Provider] - As per Instructions
[2018-07-05] MEDS ORDERED: fentaNYL 100 MCG/2 ML INJ IVP ONE ×4 (09:51→13:04)
[2018-07-05] MEDS ORDERED: fentaNYL 100 MCG/2 ML INJ ONE (09:53)
[2018-07-05] MEDS ORDERED: POLYETHYLENE GLYCOL 3350 17 GM PKT PO PRN (12:54)
[2018-07-05] MEDS ORDERED: oxyCODONE IR 5 MG TAB PO PRN (13:06)
[2018-07-05] MEDS ORDERED: traMADol 50 MG TAB PO PRN (13:06)
[2018-07-05] MEDS ORDERED: PROMETHAZINE HCL 25 MG/ML INJ IVP PRN (13:06)
[2018-07-05] MEDS ORDERED: ACETAMINOPHEN 500 MG TAB PO PRN (13:06)
[2018-07-05] MEDS ORDERED: HYDROmorphONE/DILAUDID 1 MG/ML INJ ONE (13:24)
[2018-07-05] MEDS ORDERED: cefTRIAXone 1 GM/DEXTROSE 1 GM/50 ML BAG IV ONE (13:25)
[2018-07-05] MEDS: HYDROmorphONE/DILAUDID 1 MG/ML INJ IVP PRN ×2 (13:32→20:07)
[2018-07-05] MEDS ORDERED: LIDOCAINE 1% 300 MG/30 ML SDV ONE (13:48)
--- NOTE | 2018-07-05 13:53 | GHP ---
[f rep st] HISTORY AND PHYSICAL DATE OF ADMISSION: 07/05/2018 CHIEF COMPLAINT: Abdominal pain. HISTORY: The patient is a 72-year-old male, who has had abdominal pain for the last week and a half. He has had increasing abdominal distention. His last paracentesis was on May 23. He also g ets IV albumin infusions as an outpatient. Sounds like they have been trying to back off on the freq uency of paracentesis and IV albumin with his paracentesis no longer ordered for as needed in [facility] and his IV albumin infusions were decreased to every other week. He has been determined not to be a transplant candidate. He complains of upper abdominal pain which is different from the usual disc omfort he gets with ascites. That is more lower pressure. He denies any fever. He has had nausea, vomiting, extensive dry heaves. He has also been coughing for the last week and a half with a little bit of sputum. PAST MEDICAL HISTORY: 1. Cirrhosis of the liver due to [place] complicated by known varices and ascites. 2. Renal cell carcinoma status post nephrectomy. 3. History of pulmonary embolus. 4. Chronic kidney disease. Baseline creatinine 1.6. 5. 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 PAST SURGICAL HISTORY: 1. Hernia repair. 2. Cholecystectomy. MEDICATIONS: Please see computerized record for full detailed list. ALLERGIES: No known drug allergies. SOCIAL HISTORY: No smoking. No alcohol. Lives with his . REVIEW OF SYSTEMS: Complete review of systems obtained. Review of systems negative regarding consti tutional, HEENT, GI, pulmonary, cardiovascular, , hematology, skin, muscular, endocrine, psych exce pt for positives and negatives as noted in HPI. FAMILY HISTORY: Reviewed and noncontributory to presenting complaint. PHYSICAL EXAMINATION: GENERAL: Well-developed, well-nourished male, in no acute distress. VITAL SI GNS: Temperature is 37.3, pulse 73, blood pressure 117/73, saturating 97% on room air. EYE: Normal conjunctivae. Pupils equal and reactive to light. ENT: Normal ears and nose. Hearing intact. No rmal teeth. Oropharynx moist. NECK: Trachea midline. No thyromegaly. CHEST: Normal respiratory effort. LUNGS: Clear to auscultation bilaterally. CARDIOVASCULAR: Regular rate and rhythm. No mu rmur. No lower extremity edema. ABDOMEN: Soft, distended, exquisitely tender to palpation with pos itive rebound and guarding. SKIN: Warm, dry, intact without rash. MUSCULOSKELETAL: No cyanosis or clubbing. Strength 5/5 upper and lower extremities. NEURO: Cranial nerves intact. Normal sensati on to light touch. PSYCH: Alert and oriented x3. Normal mood and affect. Normal judgment and insi ght. Normal memory. LABORATORY DATA: White count 5.83, hematocrit 46.5, platelets 134. Sodium 136, potassium 3.7, chlor leyla 105, bicarb 22, BUN 25, creatinine 1.8, glucose 111. Total bilirubin is 3.6, unconjugated biliru bin 2.8, INR is 1.42. CT scan of the abdomen and pelvis shows a right breast mass, ascites, cavernou s transformation of the portal veins, and left lower lobe pneumonia. Medical record review. He has been here in the past. Most recently was for his hernia repair with [facility] over a year ago. He does not have a history of alcohol and nonalcoholic steatohepatitis is the cause of his cirrhosis. ASSESSMENT AND PLAN: 1. Ascites. Abdominal exam is very concerning with his severe rebound and guarding and I suspect he may have spontaneous bacterial peritonitis. We will do a paracentesis stat. Will prescribe ceftria xone intravenous at 2 g daily empirically until the paracentesis results are known. 2. Right lower lobe pneumonia. Continue ceftriaxone. Also add azithromycin. 3. Cirrhosis secondary to nonalcoholic steatohepatitis complicated by ascites and varices. He has b een receiving intravenous albumin and paracentesis as an outpatient, but for some reason, they have b een decreasing the frequency. Perhaps they believe his diuretics are more optimized than they have b een in the past. Will continue his Lasix and spironolactone at home doses. 4. Chronic kidney disease. He is at baseline creatinine. 5. Gynecomastia. Previous mammogram and ultrasound were negative. His current CT scan is being nicho d as a possible mass in the right breast. He should follow this up as an outpatient. 6. History of pulmonary embolus. Currently off anticoagulation. CODE STATUS: Full. ADMISSION STATUS: Will admit to observation. Reevaluate tomorrow regarding ongoing need for hospita lization. DVT PROPHYLAXIS: He is high risk given his history of previous PE so we will place him on subcu hepa rin. /[id number]/MODL
[2018-07-05] MEDS ORDERED: ALBUMIN 25% 100 ML IV ONE (15:35)
--- NOTE | 2018-07-05 16:45 | ASMTCMCOM ---
CM Note CM Note Notes: Chart reviewed for discharge planning purposes. 72 year old male admitted from ED with c/o abdominal pain for past 9 days. History significant for renal cancer, nephrectomy, diabetes and cirrhosis. He has significant ascites. CM to follow for needs. Plan: TBD Date Signed: 07/05/2018 04:44 PM Electronically Signed By:Aminta Juan RN
[2018-07-05] MEDS: AZITHROMYCIN IV 500 MG in NS 250 ML IV SCH (16:52)
[2018-07-05] MEDS: HEPARIN 5,000 UNIT/0.5 ML INJ SC SCH ×2 (16:58→22:25)
[2018-07-05] MEDS: MIDODRINE HCL 5 MG TAB PO SCH ×2 (16:58→22:25)
[2018-07-05] MEDS ORDERED: ALBUMIN 25% 100 ML SOLN IV ONE (17:57)
[2018-07-05] MEDS ORDERED: FUROSEMIDE 20 MG TAB PO SCH (21:00)
[2018-07-05] MEDS ORDERED: SPIRONOLACTONE 25 MG TAB PO SCH (21:00)
[2018-07-05] MEDS ORDERED: HYDROmorphONE/DILAUDID 1 MG/ML INJ IVP ONE (21:15)
[2018-07-05] MEDS ORDERED: HYDROmorphONE/DILAUDID 2 MG/ML INJ IVP PRN (21:49)
--- NOTE | 2018-07-05 21:52 | HOSPPROG ---
Hospitalist Progress Note Assessment/Plan: Cross cover note: Called by patients nurse for concerns that patient was having severe and worsening abdominal pain, current pain medications given and no improvement in pain. Patient requesting evaluation by MD. Patient and his note that his pain has been worsening over the course of the day, maybe slight improvement post paracentesis but short lived. Has not passed gas all day that he is aware of, no BM. Pain is in upper abdomen and severe, 10/10, even to light touch and elicited by palpation anywhere on the abdomen. Reviewed chart, abd/pelvis CT performed earlier in the day notable for significant ascites and other findings that would likely not explain his severe pain. On exam, bowel sounds decreased, significant ttp. Will increase pain medications and order stat abd plain film to eval for s/s of SBO and recheck lactate. If pain not improving may need repeat abd CT given severity of sxs. Time spent from 9pm - 940 at bedside reviewing care plan and assessing patient as well as in chart review and coordination of care plan with nursing. Objective: Vital Signs Temp Pulse Resp BP Pulse Ox 36.8 C 73 15 109/66 92 07/05/18 19:58 07/05/18 19:58 07/05/18 19:58 07/05/18 19:58 07/05/18 19:58 Microbiology 07/05/18 14:49 Gram Stain - Final Peritoneal Fluid - Aspirate 07/04/18 07/05/18 07/06/18 05:59 05:59 05:59 Intake Total 100 Balance 100 PT 17.5 SEC (12.0-15.0) H 07/05/18 06:10 INR 1.42 (0.83-1.16) H 07/05/18 06:10 ICD10 Worksheet Patient Problems: Problems Problem Status Onset Abdominal pain Acute Pneumonia Acute Clostridium difficile infection Acute ~01/22/17 Ascites Acute Renal insufficiency Acute Pulmonary embolism Acute Cirrhosis Acute Ascites Acute Chest pain Acute Cholelithiases Acute Cirrhosis Acute Left renal mass Acute
[2018-07-05] MEDS: RIFAXIMIN 550 MG TAB PO SCH (22:26)
[2018-07-06] MEDS: ONDANSETRON 4 MG/2 ML VIAL IVP PRN (01:41)
[2018-07-06 05:33] LABS: PLATELET COUNT 127 10^3/uL (150-400)
[2018-07-06] MEDS: HEPARIN 5,000 UNIT/0.5 ML INJ SC SCH ×3 (05:57→21:26)
[2018-07-06] MEDS: AZITHROMYCIN IV 500 MG in NS 250 ML IV SCH (09:14)
[2018-07-06] MEDS: HYDROmorphONE/DILAUDID 2 MG/ML INJ IVP PRN ×2 (09:27→11:56)
[2018-07-06] MEDS: FERROUS SULFATE 325 MG TAB PO SCH (09:29)
[2018-07-06] MEDS: MIDODRINE HCL 5 MG TAB PO SCH ×3 (09:29→21:26)
[2018-07-06] MEDS: FUROSEMIDE 40 MG TAB PO SCH (09:29)
[2018-07-06] MEDS: PANTOPRAZOLE SODIUM 40 MG TAB PO SCH (09:29)
[2018-07-06] MEDS: SPIRONOLACTONE 50 MG TAB PO SCH (09:30)
[2018-07-06] MEDS: RIFAXIMIN 550 MG TAB PO SCH ×2 (09:30→21:26)
[2018-07-06] MEDS: CETIRIZINE 10 MG TAB PO SCH ×2 (09:30→10:51)
[2018-07-06] MEDS: TAMSULOSIN HCL 0.4 MG CAP PO SCH (09:31)
[2018-07-06] MEDS ORDERED: 1/2 NS 1,000 ML IV SCH (10:15)
[2018-07-06] MEDS ORDERED: NALOXONE HCL 0.4 MG/ML INJ IVP PRN (12:28)
[2018-07-06] MEDS: HYDROmorphONE/DILAUDID 6 MG/30 ML PCA IV PRN (12:49)
[2018-07-06] MEDS ORDERED: POLYETHYLENE GLYCOL 3350 17 GM PKT PO PRN (15:52)
[2018-07-06] MEDS ORDERED: METOCLOPRAMIDE 10 MG/2 ML VIAL IVP PRN (15:52)
[2018-07-06] MEDS ORDERED: MAGNESIUM HYDROXIDE 30 ML UDCUP PO PRN (15:52)
[2018-07-06] MEDS ORDERED: BISACODYL 10 MG SUPP PR PRN (15:52)
[2018-07-06] MEDS ORDERED: LACTULOSE 20 GM/30 ML UDCUP PO PRN (15:52)
--- NOTE | 2018-07-06 15:59 | HOSPPROG ---
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 Agrawal - not on liver transplant list due to poor functional status and h/o malignancy * Ileus -Xray improved - advance to clears * CKD -baseline creatinine 1.6 * RCC s/p nephrectomy -no evidence of recurrence * Gynecomastia -due to spironolactone -previous mammogram and breast US negative -breast "mass" seen on CT - outpatient follow-up, but doubt malignant * h/o PE -SQ heparin prophylaxis * Hypotension -suspect baseline low - on midodrine Subjective: Tons of abdominal pain today, still extreme despite 1mg IV dilaudid push Objective: Vital Signs Temp Pulse Resp BP Pulse Ox 36.7 C 68 20 92/45 L 97 07/06/18 11:37 07/06/18 11:37 07/06/18 11:37 07/06/18 11:37 07/06/18 11:37 Microbiology 07/05/18 14:49 Gram Stain - Final Peritoneal Fluid - Aspirate Laboratory Results 07/06/18 04:53 07/06/18 04:53 07/05/18 07/06/18 07/07/18 05:59 05:59 05:59 Intake Total 400 Balance 400 PT 17.5 SEC (12.0-15.0) H 07/05/18 06:10 INR 1.42 (0.83-1.16) H 07/05/18 06:10 ABD xray - more c/w constipation than ileus - Physical Exam Constitutional: no apparent distress, appears nourished, not in pain Cardiovascular: regular rate and rhythym, no murmur, rub, or gallop Respiratory: no respiratory distress, no rales or rhonchi, clear to auscultation Gastrointestinal: tenderness, ascites, guarding, rebound, distension Skin: no rashes or abrasions, no fluctuance, no induration Neurologic: AAOx3, sensation intact bilaterally Psychiatric: interacting appropriately, not anxious, not encephalopathic, thought process linear ICD10 Worksheet Patient Problems: Problems Problem Status Onset Abdominal pain Acute Pneumonia Acute Clostridium difficile infection Acute ~01/22/17 Ascites Acute Renal insufficiency Acute Pulmonary embolism Acute Cirrhosis Acute Ascites Acute Chest pain Acute Cholelithiases Acute Cirrhosis Acute Left renal mass Acute
--- NOTE | 2018-07-06 18:17 | GCON ---
[f rep st] CONSULTATION GI CONSULTATION DATE OF CONSULTATION: 07/06/2018 REQUESTING PHYSICIAN: Dr. Baylee Rosas. REASON FOR CONSULTATION: Liver failure. HISTORY OF PRESENT ILLNESS: Tavo is a 72-year-old gentleman followed in our practice by Dr. Brian Schroeder for chronic liver disease, thought secondary to BULLOCK. He does have a remote history of renal cell carcinoma and due to the severity of his liver disease and the prior renal cell carcinoma, he is not considered a liver transplant candidate. He was admitted to the hospital on with a marked increase in abdominal distention with pain. He was noted to have marked elevation of leukocytes in his paracentesis and started on ceftriaxone for the same. He has had improvement in his abdominal pain since that time. HOME MEDICATIONS: Ferrous sulfate 325 mg p.o. daily, Zyrtec 10 mg p.o. daily, Lasix 20 mg p.o. q.h.s. and 40 mg p.o. q.a.m., Midodrine 5 mg p.o. t.i.d., Protonix 40 mg p.o. daily, MiraLAX 17 mg p.o. p.r.n. constipation, Xifaxan 550 mg p.o. b.i.d., Aldactone 50 mg p.o. daily and 25 mg p.o. q.h.s., Flomax 0.8 mg p.o. daily, Ultram 50 mg p.o. q.6 hours p.r.n. pain, and albumin infusions with recurrent paracentesis. ALLERGIES: The patient has no known drug allergies. PAST MEDICAL HISTORY: Significant for cirrhosis of the liver due to BULLOCK, complicated by portal hypertension, known varices and ascites, which has required diuretic therapy and recurrent paracentesis, history of renal cell carcinoma status post nephrectomy, history of pulmonary embolism, chronic renal disease with baseline creatinine of 1.6, and gynecomastia secondary to spironolactone. PAST SURGICAL HISTORY: Significant for cholecystectomy and hernia repair. SOCIAL HISTORY: He is a nonsmoker. Does not drink alcohol. Lives with his in [facility]. FAMILY HISTORY: Negative for liver disease or PUD. REVIEW OF SYSTEMS: Other than complaints of abdominal distention and fatigue are negative for comprehensive review of systems. PHYSICAL EXAMINATION: GENERAL: Well-developed gentleman, in moderate distress , in bed. VITALS: Temperature 36.7 Celsius; pulse 68, regular; blood pressure 92/45; respiratory rate was 20; O2 saturation 97% on 3 L. INTEGUMENT: Jaundiced. HEENT: Head atraumatic, normocephalic. Pupils equally round and reactive to light. EOMs were intact. Sclerae icteric. Mucous membranes moist. Dentition fair. NECK: Supple. Trachea midline. LYMPHATICS: No cervical or axillary adenopathy. There was bilateral gynecomastia. PULMONARY: Lungs were clear to percussion and auscultation. CARDIOVASCULAR: Regular rhythm and rate. Normal S1, S2 without murmur. Peripheral pulses decreased bilaterally. Trace pedal edema bilaterally. GASTROINTESTINAL: Abdomen distended, positive bowel sounds. + fluid wave There is tenderness in all 4 quadrants to deep palpation without palpable mass or rebound. EXTREMITIES: Without deformity. NEURO: Patient was alert and oriented x3. No focal neurologic deficits. LABS: Admission white count 5.83 with hemoglobin 14.0, hematocrit 40.5. CBC today showed a white count of 10.49, hemoglobin 13.1, hematocrit 38.9, platelets 127,000. Lactic acid on admission 2.3. Lactic acid today 1.4. Electrolytes normal. BUN 31, creatinine 1.8, total bilirubin 5.4, conjugated 1.2, unconjugated 4.2. AST 23, ALT 25, ALP 165, albumin 3.0. 2 L paracentesis on admission was yellow, cloudy, white cell count at 10,545, RBC count at 9124. There are 98% neutrophils. Cytology is pending. Abdominal and pelvic CT scan showed gynecomastia, right greater than left, large volume ascites, increased since August of 2016, possible cavernous transformation of the portal vein, and possible left lower lobe pneumonia. There is a progressive splenomegaly with a spleen size of 18.6 cm length. Prior cholecystectomy noted. 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 Patient is not a liver transplant candidate due to prior history of renal cell carcinoma. RECOMMENDATION: Agree with IV antibiotics as ordered by Dr. Rosas, will follow with you. /[id number]/MODL MTDD
--- NOTE | 2018-07-06 18:50 | PDMN ---
Medical Necessity Medical necessity: Change to inpt as of 07/06/18 @ 10:06, meets inpt criteria per MD order and [facility] [place] M-[id number], Liver Disease Complications. 72 y/o w/hx ESLD/ cirrhosis of liver due to BULLOCK complicated by varices and ascites admitted w/ increasing abd pain and distention, ascites concerning for bacterial peritonitis , paracentiesis done stat at time of admission, also RLL PNA. 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
--- NOTE | 2018-07-06 19:26 | PDCONSULT ---
Water Safety Teacher Note: Infectious Diseases Consult Note Impression: 72-year-old man with cirrhotic liver disease due to BULLOCK complicated by his first episode of SBP manifesting primarily as severe abdominal pain. No pathogen recovered to date. No evidence for pneumonia. 1. SBP; Pathogen(s) undefined to date 2. Cirrhotic liver disease due to BULLOCK 3. CKD 4. Solitary kidney due to resection (renal cell carcinoma) Plan: 1. Continue ceftriaxone 2gm daily 2. Stop azithromycin Darinel Caballero MD Infectious Diseases Chief Complaint: Abdominal pain Requesting Provider: Dr. Rosas Reason for Referral: Consultation was requested by Dr. Rosas regarding antimicrobial management. HPI: 72-year-old man who presented to the hospital after more than a week of abdominal pain that became unbearable at home. He has been undergoing weekly paracenteses with approximately 7 liters of fluid removed with each procedure until a few weeks ago when he was changed to every other week. He had not had this type of abdominal pain in the past and has never had SBP prior to this episode. He notes the onset of abdominal pain approximately 10 days prior to admission which he thought was another bout of "diverticulitis" that would resolve on it's own. This was followed by watery diarrhea that lasted a couple days. He did have improvement in the pain to a degree that allowed him to eat out dinner with his on their anniversary; he was able to eat a medium cooked steak, potato, and salad without worsening of his abdominal pain that night. The following day (of admission) he woke with severe abdominal pain that kept him from getting out of bed. He notes no fever, chills, or night sweats. A non-productive cough developed a few days prior to admission. No sick contacts. No arthralgias, myalgias, nausea, or emesis. Travel history: [place]; Served in [employer]; Moved to [facility] from [facility]; Originally from [place] Past Medical History: BULLOCK; Cirrhosis; Renal cell carcinoma Past Surgical History: Hernia repair; Kidney resection Social History: Non-smoker; No alcohol use; No illicit drug use Family History: No recurrent infections Allergies: NKDA Medications: Reviewed in medical record and confirmed with patient. ROS: 10 organ systems reviewed; pertinent positives and negatives listed in the HPI, all other organ systems negative. Physical Exam: VS: Reviewed Gen: No acute distress; Breathing comfortably with exogenous oxygen; Able to speak in complete sentences Eyes: No conjunctival injection; No scleral icterus HENT: No gross deformities Neck: No limitation in range of motion Pulm: Breath sounds clear to the bases bilaterally; No wheeze, rhonchi, or rales CV: Normal S1 and S2; Regular rate and rhythm; No murmurs, rubs, or gallops; No lower extremity edema Abd: Distended; Hypo-active bowel sounds; Firm; Diffusely tender to palpation Skin: A full skin exam including bilateral upper extremities, bilateral lower extremities to the knees, face, neck, abdomen, chest, and back performed; Skin intact, warm, with no rash MSK: Joints without erythema or edema; No gross limitation in range of motion Ext: No clubbing or cyanosis Neuro: Somnolent; Wakes to verbal and tactile stimuli Psych: Normal mood and blunted affect Labs/Imaging: All microbiology testing (culture and non-culture) reviewed in the medical record. Personally reviewed and interpreted the images of the following radiographs: abdominal x-ray without evidence for bowel obstruction. Laboratory Tests 07/05/18 07/05/18 07/05/18 06:10 06:10 14:49 WBC 5.83 Absolute Neuts (auto) 5.10 Absolute Lymphs (auto) 0.33 L INR 1.42 H Creatinine Peritoneal WBC 83441 H Periton Neutrophils 98 H 07/06/18 07/06/18 04:53 04:53 WBC 10.49 H Absolute Neuts (auto) 9.28 H Absolute Lymphs (auto) 0.40 L INR Creatinine 1.8 H Peritoneal WBC Periton Neutrophils Antimicrobials: Ceftriaxone Azithromycin Ongoing monitoring for antimicrobial toxicity with: CBC, BMP. [id number] time with patient: 69 minutes with >50% of [id number] time spent in counseling, patient education, and coordinating care. Counseling provided included the microbiology of SBP, expected time to resolution, natural history without treatment, and side effects of treatment.
[2018-07-06] MEDS: SENNOSIDES/DOCUSATE SODIUM TAB PO SCH (21:26)
[2018-07-07 05:01] LABS: PLATELET COUNT 146 10^3/uL (150-400)
[2018-07-07] MEDS: HEPARIN 5,000 UNIT/0.5 ML INJ SC SCH ×3 (05:07→20:31)
[2018-07-07] MEDS: SPIRONOLACTONE 50 MG TAB PO SCH (05:08)
[2018-07-07 05:09] LABS: INR 1.69 (0.83-1.16)
--- NOTE | 2018-07-07 09:56 | PCMIDPN ---
Assessment/Plan: Assessment: Spontaneous bacterial peritonitis. No pathogen is forthcoming from cultures yet. Blood cultures remain negative. Patient persists on monotherapy with IV ceftriaxone 2 g daily. He has shown no temperature elevation during his stay. The abdominal pain clinically seems to be slightly improved. We will follow this going forward. We will continue to monitor cultures. Adjust as necessary. Plan: 1. Continue IV ceftriaxone. 2. Follow the clinical signs of abdominal pain. 3. Follow fever curve and culture data. 07/07/18 09:52 Subjective: Patient continues to have some ongoing abdominal pain. This is slightly improved from admission. He is tolerating the IV ceftriaxone without issue. He is eating Jell-O this morning. Objective: Ceftriaxone # 2 Vital Signs Temp Pulse Resp BP Pulse Ox 36.7 C 75 18 112/67 97 07/07/18 07:50 07/07/18 07:50 07/07/18 07:50 07/07/18 07:50 07/07/18 07:50 Microbiology 07/05/18 14:49 Gram Stain - Final Peritoneal Fluid - Aspirate Laboratory Results 07/07/18 04:54 07/07/18 04:54 07/06/18 07/07/18 07/08/18 05:59 05:59 05:59 Intake Total 400 825 Balance 400 825 - Physical Exam General Appearance: WD/WN, alert, no apparent distress, non-toxic Respiratory: lungs clear, normal breath sounds, No respiratory distress Cardiac/Chest: regular rate, rhythm, No tachycardia Skin: normal color, warm/dry, No rash Neuro/Psych: alert, normal mood/affect, oriented x 3 ICD10 Worksheet Patient Problems: Problems Problem Status Onset Abdominal pain Acute Ascites Acute Pneumonia Acute Ascites Acute Chest pain Acute Cholelithiases Acute Cirrhosis Acute Cirrhosis Acute Clostridium difficile infection Acute ~01/22/17 Left renal mass Acute Pulmonary embolism Acute Renal insufficiency Acute
[2018-07-07] MEDS: CETIRIZINE 10 MG TAB PO SCH (10:23)
[2018-07-07] MEDS: MIDODRINE HCL 5 MG TAB PO SCH ×3 (10:23→20:31)
[2018-07-07] MEDS: FERROUS SULFATE 325 MG TAB PO SCH (10:23)
[2018-07-07] MEDS: TAMSULOSIN HCL 0.4 MG CAP PO SCH (10:23)
[2018-07-07] MEDS: SENNOSIDES/DOCUSATE SODIUM TAB PO SCH ×2 (10:23→20:31)
[2018-07-07] MEDS: FUROSEMIDE 40 MG TAB PO SCH (10:24)
[2018-07-07] MEDS: PANTOPRAZOLE SODIUM 40 MG TAB PO SCH (10:24)
--- NOTE | 2018-07-07 10:41 | SOAPPROG ---
SOAP Progress Note Assessment/Plan: Assessment: 1. PSE; clinically improved on IV antibiotics. Reviewed case with Dr Schroeder today and he concurs with diagnosis. 2. Ascites without change. 3. ESLD secondary to BULLOCK. Not a liver transplant candidate. Plan: 1. Continue IV antibiotics. 2. Will require an additional high volume paracentesis prior to discharge. 3. Dr. Condon to pickup driver GI service starting at 5 PM today. Wilmer Agrawal MD 07/07/18 10:43 Subjective: CC: SBP. Patient feeling better today with less abdominal tenderness. Objective: Vital Signs Temp Pulse Resp BP Pulse Ox 36.7 C 75 18 112/67 97 07/07/18 07:50 07/07/18 07:50 07/07/18 07:50 07/07/18 07:50 07/07/18 07:50 Microbiology 07/05/18 14:49 Gram Stain - Final Peritoneal Fluid - Aspirate Laboratory Results 07/07/18 04:54 07/07/18 04:54 07/06/18 07/07/18 07/08/18 05:59 05:59 05:59 Intake Total 400 825 Balance 400 825 PT 20.0 SEC (12.0-15.0) H 07/07/18 04:54 INR 1.69 (0.83-1.16) H 07/07/18 04:54 Physical Exam - Physical Exam General Appearance: WD/WN, alert Respiratory: lungs clear, normal breath sounds Cardiac/Chest: regular rate, rhythm Abdomen: normal bowel sounds, soft (tender in all 4 quads ), ascites Skin: warm/dry Neuro/Psych: no motor/sensory deficits, alert, normal mood/affect ICD10 Worksheet Patient Problems: Problems Problem Status Onset Abdominal pain Acute Ascites Acute Pneumonia Acute Ascites Acute Chest pain Acute Cholelithiases Acute Cirrhosis Acute Cirrhosis Acute Clostridium difficile infection Acute ~01/22/17 Left renal mass Acute Pulmonary embolism Acute Renal insufficiency Acute
[2018-07-07] MEDS ORDERED: HYDROmorphONE/DILAUDID 1 MG/ML INJ IVP ONE (11:35)
--- NOTE | 2018-07-07 14:46 | ASMTCMCOM ---
CM Note CM Note Notes: Continues on IV antibiotics which he has improved on. PT and OT evals have been ordered for pt. CM will follow for recommendations. D/C Plan: TBD Date Signed: 07/07/2018 02:45 PM Electronically Signed By:Bina Argueta
[2018-07-07] MEDS: HYDROmorphONE/DILAUDID 6 MG/30 ML PCA IV PRN (15:07)
[2018-07-07] MEDS: RIFAXIMIN 550 MG TAB PO SCH ×2 (15:16→20:30)
[2018-07-07] MEDS ORDERED: NS 500 ML IV ONE (16:30)
[2018-07-07] MEDS ORDERED: ALBUMIN 25% 200 ML IV ONE (16:31)
[2018-07-07] MEDS ORDERED: ALBUMIN 25% 100 ML SOLN IV ONE (17:30)
--- NOTE | 2018-07-07 17:33 | HOSPPROG ---
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 # cirrhosis due to BULLOCK - not on liver transplant list due to poor functional status and h/o malignancy - cont xifaxan, lactulose # ileus - cont clears # DARLENE on CKD - SCr increased to 2.2; suspect intravascular hypovolemia, receiving diuretics, had a LVP - given additional volume with NS and albumin tonight, hold diuretics # RCC s/p nephrectomy - no evidence of recurrence # gynecomastia - due to spironolactone - previous mammogram and breast US negative - breast "mass" seen on CT - outpatient follow-up, but doubt malignant # h/o PE - [facility] ppx # hypotension - cont midodrine Subjective: feels "loopy" with dilaudid ACCOUNT 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 Objective: Vital Signs Temp Pulse Resp BP Pulse Ox 36.9 C 84 12 106/63 91 L 07/07/18 16:00 07/07/18 16:00 07/07/18 16:00 07/07/18 16:00 07/07/18 16:00 Microbiology 07/05/18 14:49 Gram Stain - Final Peritoneal Fluid - Aspirate Laboratory Results 07/07/18 04:54 07/07/18 04:54 07/06/18 07/07/18 07/08/18 05:59 05:59 05:59 Intake Total 400 825 Balance 400 825 PT 20.0 SEC (12.0-15.0) H 07/07/18 04:54 INR 1.69 (0.83-1.16) H 07/07/18 04:[address] reviewed - Physical Exam Constitutional: chronically ill appearing Cardiovascular: regular rate and rhythym, no murmur, rub, or gallop Respiratory: no respiratory distress, no rales or rhonchi, clear to auscultation Gastrointestinal: normoactive bowel sounds, tenderness (diffuse), distension ( not tense), No guarding, No rebound ICD10 Worksheet Patient Problems: Problems Problem Status Onset Abdominal pain Acute Pneumonia Acute Clostridium difficile infection Acute ~01/22/17 Ascites Acute Renal insufficiency Acute Pulmonary embolism Acute Cirrhosis Acute Ascites Acute Chest pain Acute Cholelithiases Acute Cirrhosis Acute Left renal mass Acute
[2018-07-07] MEDS: ALBUMIN 25% 100 ML IV SCH (19:25)
[2018-07-08] MEDS: ALBUMIN 25% 100 ML IV SCH ×4 (00:15→19:04)
[2018-07-08] MEDS ORDERED: 1/2 NS 1,000 ML IV PRN (00:55)
[2018-07-08] MEDS: HEPARIN 5,000 UNIT/0.5 ML INJ SC SCH ×2 (05:12→13:00)
[2018-07-08 06:01] LABS: PLATELET COUNT 157 10^3/uL (150-400)
--- NOTE | 2018-07-08 08:59 | HOSPPROG ---
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 # metabolic encephalopathy - multifactorial; ammonia yesterday was low # cirrhosis due to BULLOCK - not on liver transplant list due to poor functional status and h/o malignancy - cont xifaxan, lactulose # ileus - cont clears # DARLENE on CKD (baseline about 1.7) - SCr increased to 2.5 - cont albumin - renal consult today (discussed with Dr Meade) # RCC s/p nephrectomy 08/2016 - no evidence of recurrence # gynecomastia - due to spironolactone - previous mammogram and breast US negative - breast "mass" seen on CT - outpatient follow-up, but doubt malignant # h/o PE 2016 - off AC - [facility] ppx # hypotension - cont midodrine Subjective: still with abd pain; reports he is still confused Objective: Vital Signs Temp Pulse Resp BP Pulse Ox 36.8 C 74 18 90/53 L 95 07/08/18 07:50 07/08/18 07:50 07/08/18 07:50 07/08/18 07:50 07/08/18 07:50 Microbiology 07/05/18 14:49 Gram Stain - Final Peritoneal Fluid - Aspirate Laboratory Results 07/08/18 05:38 07/08/18 05:38 07/07/18 07/08/18 07/09/18 05:59 05:59 05:59 Intake Total 825 300 Balance 825 300 PT 20.0 SEC (12.0-15.0) H 07/07/18 04:54 INR 1.69 (0.83-1.16) H 07/07/18 04:54 hig risk with worsening renal function - Physical Exam Constitutional: chronically ill appearing Cardiovascular: regular rate and rhythym, no murmur, rub, or gallop Respiratory: no respiratory distress, no rales or rhonchi, clear to auscultation Gastrointestinal: normoactive bowel sounds, distension, other (soft, very TTP diffusely) ICD10 Worksheet Patient Problems: Problems Problem Status Onset Abdominal pain Acute Pneumonia Acute Clostridium difficile infection Acute ~01/22/17 Ascites Acute Renal insufficiency Acute Pulmonary embolism Acute Cirrhosis Acute Ascites Acute Chest pain Acute Cholelithiases Acute Cirrhosis Acute Left renal mass Acute
[2018-07-08] MEDS: CETIRIZINE 10 MG TAB PO SCH (09:26)
[2018-07-08] MEDS: SENNOSIDES/DOCUSATE SODIUM TAB PO SCH ×2 (09:26→23:21)
[2018-07-08] MEDS: TAMSULOSIN HCL 0.4 MG CAP PO SCH (09:26)
[2018-07-08] MEDS: PANTOPRAZOLE SODIUM 40 MG TAB PO SCH (09:26)
[2018-07-08] MEDS: RIFAXIMIN 550 MG TAB PO SCH ×2 (09:26→23:21)
[2018-07-08] MEDS: FERROUS SULFATE 325 MG TAB PO SCH (09:26)
[2018-07-08] MEDS: MIDODRINE HCL 5 MG TAB PO SCH ×2 (09:27→16:55)
[2018-07-08] MEDS ORDERED: LIDOCAINE 1% 300 MG/30 ML SDV ONE (11:24)
--- NOTE | 2018-07-08 12:09 | SOAPPROG ---
SOAP Progress Note Assessment/Plan: Assessment:Plan: 1) SBP - WBC down peripherally, pain worse by report, query secondary peritonitis, continue Ceftriaxone 2) Renal - Cr up, query HPR? 3) HE - improved but still with intermittent encephalopathy, Xifaxan 550 BID Plan: retap diagnostic for cell count ldh, glucose continue Xifaxan for HE renal consultation 07/08/18 12:04 07/08/18 16:25 ADDENDUM pt with low glucose (< 50) and LDH > 800 - so needs CT scan to evaluate for possible secondary bacterial peritonitis CT abdo NO IV contrast, oral contrast if pt can tolerate I see ID added fungal coverage as yeast seen on tap today 07/08/18 16:28 Subjective: CC- SBP, renal insufficiency, HE pt alert and oriented now, but was confused earlier this am pain worse by report - he does have diffuse tenderness but no rebound in room Objective: Vital Signs Temp Pulse Resp BP Pulse Ox 36.8 C 74 18 90/53 L 95 07/08/18 07:50 07/08/18 07:50 07/08/18 07:50 07/08/18 07:50 07/08/18 07:50 Microbiology 07/05/18 14:49 Gram Stain - Final Peritoneal Fluid - Aspirate Laboratory Results 07/08/18 05:38 07/08/18 05:38 07/07/18 07/08/18 07/09/18 05:59 05:59 05:59 Intake Total 825 300 Balance 825 300 PT 20.0 SEC (12.0-15.0) H 07/07/18 04:54 INR 1.69 (0.83-1.16) H 07/07/18 04:54 Alert CTA S1S2 +BS decreased freq occ high pitch c/w mild ileus, +distension, + diffuse pain no rebound ICD10 Worksheet Patient Problems: Problems Problem Status Onset Abdominal pain Acute Ascites Acute Pneumonia Acute Ascites Acute Chest pain Acute Cholelithiases Acute Cirrhosis Acute Cirrhosis Acute Clostridium difficile infection Acute ~01/22/17 Left renal mass Acute Pulmonary embolism Acute Renal insufficiency Acute
[2018-07-08] MEDS ORDERED: traMADol 50 MG TAB PO PRN (12:30)
[2018-07-08] MEDS ORDERED: MICAFUNGIN NA 100 MG in NS 100 ML IV SCH (16:00)
--- NOTE | 2018-07-08 16:15 | PCMIDPN ---
Assessment/Plan: Assessment: Spontaneous bacterial peritonitis. No pathogen is forthcoming from cultures yet but samples from today's paracentesis showed yeast on Gram stain. Will add micafungin to the ceftriaxone. Blood cultures remain negative. Patient persists on monotherapy with IV ceftriaxone 2 g daily. We will continue to monitor cultures. Adjust as necessary. Plan: 1. Continue IV ceftriaxone. Add micafungin 100 mg IV daily. 2. Follow the clinical signs of abdominal pain. 3. Follow fever curve and culture data. Subjective: Patient is quite tired this afternoon. He has been through a couple of procedures. His abdominal pain remains unchanged. No other new symptoms. Objective: Ceftriaxone # 3 micafungin # 1 Vital Signs Temp Pulse Resp BP Pulse Ox 36.9 C 89 19 98/51 L 92 07/08/18 15:04 07/08/18 15:04 07/08/18 15:04 07/08/18 15:04 07/08/18 15:04 Microbiology 07/08/18 12:00 Gram Stain - Final Peritoneal Fluid - Aspirate Body Fluid Culture - Final 07/05/18 14:49 Gram Stain - Final Peritoneal Fluid - Aspirate Laboratory Results 07/08/18 05:38 07/08/18 05:38 07/07/18 07/08/18 07/09/18 05:59 05:59 05:59 Intake Total 825 300 Balance 825 300 - Physical Exam General Appearance: WD/WN, alert, no apparent distress, non-toxic Respiratory: lungs clear, normal breath sounds, No respiratory distress Cardiac/Chest: regular rate, rhythm, No tachycardia Abdomen: soft, distended, No non-tender, No mass Skin: normal color, warm/dry, No rash Neuro/Psych: alert, normal mood/affect, oriented x 3 ICD10 Worksheet Patient Problems: Problems Problem Status Onset Abdominal pain Acute Ascites Acute Pneumonia Acute Ascites Acute Chest pain Acute Cholelithiases Acute Cirrhosis Acute Cirrhosis Acute Clostridium difficile infection Acute ~01/22/17 Left renal mass Acute Pulmonary embolism Acute Renal insufficiency Acute
--- NOTE | 2018-07-08 17:53 | PDCONSULT ---
[employer] Finishing Supervisor Note: Nephrology Consult Reason for consult: DARLENE on CKD Consulting Physician: Page HPI: 72 yo M with PMH significant for RCC s/p nephrectomy, CKD followed by Dr. 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 Large volume paracentesis on admission with small amount of albumin and contrasted CT scan on 07/05. Patient with chronic hypotension on midodrine, but BP running lower. Cr was 1.8 on admission --> 2.2 --> 2.5. Diuretics have been stopped and patient given albumin. Currently he reports significant ongoing abdominal pain. Repeat paracentesis on 07/08 gram stain with yeast. He denies shortness of breath. Reports that he is still making urine. reports that BP is typically running lower than normal despite his chronic midodrine. PMH: CKD III, BULLOCK cirrhosis, RCC Family Hx: mother with CKD and ovarian cancer Social Hx: non smoker, no alcohol, ROS: 11 systems reviewed and negative except for that discussed in HPI above Temp Pulse Resp BP Pulse Ox 36.9 C 89 19 98/51 L 92 07/08/18 15:04 07/08/18 15:04 07/08/18 15:04 07/08/18 15:04 07/08/18 15:04 O2 (L/minute) 0.5 Exam: General- acute on chronically ill-appearing, appears uncomfortable Eyes- anicteric sclera, no conjunctival injection HEENT- MMM, no gross oral lesions Pulm- CTAB, no wheezes or rales, breathing comfortably on O2 NC CV- NRRR, no g/m/r, 1-2+ bilateral LE edema Abd- significant abdominal distention, + significant abdominal tenderness, + ascites - no rosas Extrem- 1-2 + LE edema Neuro- CN II-XII grossly intact, normal gait Psych- pleasant, answers questions appropriately WBC 9.17 10^3/uL (3.80-9.50) 07/08/18 05:38 RBC 3.96 10^6/uL (4.40-6.38) L 07/08/18 05:38 Hgb 12.6 g/dL (13.7-17.5) L 07/08/18 05:38 Hct 38.0 % (40.0-51.0) L 07/08/18 05:38 MCV 96.0 fL (81.5-99.8) 07/08/18 05:38 MCH 31.8 pg (27.9-34.1) 07/08/18 05:38 MCHC 33.2 g/dL (32.4-36.7) 07/08/18 05:38 RDW 15.3 % (11.5-15.2) H 07/08/18 05:38 Plt Count 157 10^3/uL (150-400) 07/08/18 05:38 MPV 9.5 fL (8.7-11.7) 07/08/18 05:38 Neut % (Auto) 84.5 % (39.3-74.2) H 07/08/18 05:38 Lymph % (Auto) 6.0 % (15.0-45.0) L 07/08/18 05:38 [place] % (Auto) 8.7 % (4.5-13.0) 07/08/18 05:38 Eos % (Auto) 0.2 % (0.6-7.6) L 07/08/18 05:38 Baso % (Auto) 0.1 % (0.3-1.7) L 07/08/18 05:38 Nucleat RBC Rel Count 0.0 % (0.0-0.2) 07/08/18 05:38 Absolute Neuts (auto) 7.75 10^3/uL (1.70-6.50) H 07/08/18 05:38 Absolute Lymphs (auto) 0.55 10^3/uL (1.00-3.00) L 07/08/18 05:38 Absolute Monos (auto) 0.80 10^3/uL (0.30-0.80) 07/08/18 05:38 Absolute Eos (auto) 0.02 10^3/uL (0.03-0.40) L 07/08/18 05:38 Absolute Basos (auto) 0.01 10^3/uL (0.02-0.10) L 07/08/18 05:38 Absolute Nucleated RBC 0.00 10^3/uL (0-0.01) 07/08/18 05:38 Immature Gran % 0.5 % (0.0-1.1) 07/08/18 05:38 Immature Gran # 0.05 10^3/uL (0.00-0.10) 07/08/18 05:38 RBC/WBC/PLT Morphology TNP 07/08/18 05:38 Platelet Estimate TNP 07/08/18 05:38 PT 20.0 SEC (12.0-15.0) H 07/07/18 04:54 INR 1.69 (0.83-1.16) H 07/07/18 04:54 APTT 32.3 SEC (23.0-38.0) 07/05/18 06:10 VBG Lactic Acid 1.4 mmol/L (0.7-2.1) 07/06/18 08:45 Sodium 131 mEq/L (135-145) L 07/08/18 05:38 Potassium 4.7 mEq/L (3.5-5.2) 07/08/18 05:38 Chloride 101 mEq/L (97-110) 07/08/18 05:38 Carbon Dioxide 20 mEq/l (22-31) L 07/08/18 05:38 Anion Gap 10 mEq/L (6-14) 07/08/18 05:38 BUN 65 mg/dL (7-23) H 07/08/18 05:38 Creatinine 2.5 mg/dL (0.7-1.3) H 07/08/18 05:38 Estimated GFR 26 07/08/18 05:38 Glucose 85 mg/dL (70-100) 07/08/18 05:38 Calcium 9.3 mg/dL (8.5-10.4) 07/08/18 05:38 Total Bilirubin 4.7 mg/dL (0.1-1.4) H 07/08/18 05:38 Conjugated Bilirubin 1.6 mg/dL (0.0-0.5) H 07/08/18 05:38 Unconjugated Bilirubin 3.1 mg/dL (0.0-1.1) H 07/08/18 05:38 AST 17 IU/L (17-59) 07/08/18 05:38 ALT 23 IU/L (21-72) 07/08/18 05:38 Alkaline Phosphatase 43 IU/L (38-126) 07/08/18 05:38 Ammonia < 9.0 uMOL/L (9.0-30.0) L 07/07/18 04:54 Total Protein 5.6 g/dL (6.3-8.2) L 07/08/18 05:38 Albumin 3.2 g/dL (3.5-5.0) L 07/08/18 05:38 Lipase 187 IU/L (23-300) 07/05/18 06:10 Urine Color RUKHSANA 07/08/18 09:30 Urine Appearance CLEAR 07/08/18 09:30 Urine pH 5.0 (5.0-7.5) 07/08/18 09:30 Ur Specific [employer] 1.014 (1.002-1.030) 07/08/18 09:30 Urine Protein NEGATIVE (NEGATIVE) 07/08/18 09:30 Urine Ketones NEGATIVE (NEGATIVE) 07/08/18 09:30 Urine Blood 2+ (NEGATIVE) H 07/08/18 09:30 Urine Nitrate NEGATIVE (NEGATIVE) 07/08/18 09:30 Urine Bilirubin NEGATIVE (NEGATIVE) 07/08/18 09:30 Urine Urobilinogen NEGATIVE EU (0.2-1.0) 07/08/18 09:30 Ur Leukocyte Esterase NEGATIVE (NEGATIVE) 07/08/18 09:30 Urine RBC 1-3 /hpf (0-3) 07/08/18 09:30 Urine WBC 0-1 /hpf (0-3) 07/08/18 09:30 Ur Epithelial Cells TRACE /lpf (NONE-1+) 07/08/18 09:30 Urine Bacteria TRACE /hpf (NONE SEEN) H 07/08/18 09:30 Hyaline Casts 5-15 /lpf (0-1) 07/08/18 09:30 Urine Mucus TRACE /lpf (NONE-1+) 07/08/18 09:30 Ur Random Creatinine 216.1 mg/dL 07/08/18 02:20 Ur Random Sodium < 5 mEq/L (30-90) L 07/08/18 02:20 Urine Glucose NEGATIVE (NEGATIVE) 07/08/18 09:30 Fluid Meso/Macro/[place] % 11 % (70-100) L 07/08/18 12:00 Fl Pathologist Review Milton RAMESH MD 07/05/18 14:49 Fluid Glucose Cancelled 07/08/18 12:00 Fluid Total Protein Cancelled 07/08/18 12:00 Peritoneal Source PERITONEAL 07/08/18 12:00 Peritoneal Color YELLOW (CLS/PALE YL) H 07/08/18 12:00 Peritoneal Appearance CLOUDY (CLEAR) H 07/08/18 12:00 Peritoneal WBC 9648 /mm3 (0-0) H 07/08/18 12:00 Peritoneal RBC 3383 /mm3 (0-0) H 07/08/18 12:00 Periton Neutrophils 86 % (0-7) H 07/08/18 12:00 Periton Lymphocytes % 3 % (0-18) 07/08/18 12:00 Peritoneal Tot Protein 2.7 g/dL 07/08/18 12:00 Peritoneal LDH 864 IU/L 07/08/18 12:00 Peritoneal Glucose 49 mg/dL (55-113) L 07/08/18 12:00 Cytology RECEIVED 07/05/18 14:49 Assessment/Plan: 72 yo M with PMH significant for RCC s/p nephrectomy, CKD followed by Dr. 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 Cr was 1.8 on admission --> 2.2 --> 2.5. Misha very low (<5) raising suspicion for HRS, though this is a diagnosis of exclusion and patient has many potential causes of DARLENE. Risk factors for HRS include SBP and large volume paracentesis. Other potential etiologies of DARLENE include sepsis-associated ATN, pre-renal, and contrast nephropathy. # DARLENE- --Agree with holding diuretics --Getting albumin 25% 25g q6h *Will increase midodrine to 10mg TID *Will empirically start octreotide *Check PVR (may need I/O cath if bladder scan not accurate due to ascites) *Check CK (+ blood on UA but only 1-3 RBCs) -Continue treating infection -Avoid further nephrotoxic medications *Started discussing potential indication for dialysis with the family. Asked patient to think about whether he would want short term and/or long-term dialysis if indicated. Given that patient is not a transplant candidate, if significantly decompensates from a liver standpoint, would not recommend dialysis. Patient will discuss with his family tonight. Discussed that as toxins accumulate from liver and kidney failure, he is likely to become more confused, which is why it is important that he let his family know his wishes now. # SBP- now gram stain + yeast --ID following, on Ceftriaxone and Mycafungin now added # Hyperkalemia- K ok at 4.7 at this time *Renal diet when able # Metabolic acidosis- mild, CTM Discussed with Dr. Abel >1hr spent on the care of this patient with >50% of time spent on counseling and coordination of care
[2018-07-08] MEDS ORDERED: MIDODRINE HCL 10 MG TAB PO ONE (18:11)
[2018-07-08] MEDS ORDERED: MIDODRINE HCL 5 MG TAB PO SCH (18:12)
[2018-07-08] MEDS ORDERED: OCTREOTIDE ACETATE 500 MCG in NS 50 ML IV SCH (18:15)
[2018-07-08 18:32] LABS: CREATINE KINASE < 20 IU/L (0-224)
[2018-07-08] MEDS: ONDANSETRON 4 MG/2 ML VIAL IVP PRN (19:18)
[2018-07-08] MEDS ORDERED: NALOXONE HCL 0.4 MG/ML INJ IVP PRN ×2 (20:58→23:46)
[2018-07-08] MEDS ORDERED: FUROSEMIDE 20 MG TAB PO SCH (21:00)
[2018-07-08] MEDS ORDERED: HYDROmorphONE/DILAUDID 1 MG/ML INJ IVP PRN (21:13)
[2018-07-08] MEDS: HYDROmorphONE/DILAUDID 6 MG/30 ML PCA IV PRN (21:23)
[2018-07-08] MEDS ORDERED: ZOLPIDEM TARTRATE 5 MG TAB PO ONE (23:45)
--- NOTE | 2018-07-08 23:50 | SOAPPROG ---
SOAP Progress Note Assessment/Plan: Assessment/Plan: Moribund due to secondary peritonitis and liver failure Cr up to 2.5 Worsening prognosis as likely to from surgery as from current illness Pt and family expressed desire for comfort care. DNR ordered d/w family and staff Will obtain formal palliative care consult in am if necessary 07/08/18 23:47 Objective: Vital Signs Temp Pulse Resp BP Pulse Ox 36.4 C 104 H 18 104/65 93 07/08/18 19:25 07/08/18 22:08 07/08/18 22:08 07/08/18 22:08 07/08/18 22:08 Microbiology 07/08/18 12:00 Gram Stain - Final Peritoneal Fluid - Aspirate Body Fluid Culture - Final 07/05/18 14:49 Gram Stain - Final Peritoneal Fluid - Aspirate Laboratory Results 07/08/18 05:38 07/08/18 05:38 07/07/18 07/08/18 07/09/18 05:59 05:59 05:59 Intake Total 825 300 400 Balance 825 300 400 PT 20.0 SEC (12.0-15.0) H 07/07/18 04:54 INR 1.69 (0.83-1.16) H 07/07/18 04:54 ICD10 Worksheet Patient Problems: Problems Problem Status Onset Abdominal pain Acute Ascites Acute Pneumonia Acute Ascites Acute Chest pain Acute Cholelithiases Acute Cirrhosis Acute Cirrhosis Acute Clostridium difficile infection Acute ~01/22/17 Left renal mass Acute Pulmonary embolism Acute Renal insufficiency Acute
[2018-07-09] MEDS: HEPARIN 5,000 UNIT/0.5 ML INJ SC SCH ×2 (00:10→07:21)
[2018-07-09] MEDS: ALBUMIN 25% 100 ML IV SCH ×2 (00:11→07:21)
--- NOTE | 2018-07-09 01:23 | GCON ---
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 He is followed as an outpatient by Dr. Isidro. Mostly he gets his treatment done at [facility]. He has been seen in the [facility] for liver transplant, which he is not a candidate for due to recent history of renal cell carcinoma and his age. PAST MEDICAL HISTORY: Includes: Hypertension, liver failure requiring paracentesis and an albumin transfusions, cell carcinoma. PAST SURGICAL HISTORY: Includes: Cholecystectomy and nephrectomy. FAMILY HISTORY: Noncontributory. ALLERGIES: He has no known drug allergies. CURRENT MEDICATIONS: Include: Ceftriaxone and Micafungin for yeast found on paracentesis. He is also on a Dilaudid PHYSICAL THERAPY ASSISTANT, octreotide, and lactulose. PHYSICAL EXAMINATION: VITAL SIGNS: The patient currently has a temperature of 36.4, blood pressure of 116/67, heart rate of 117, respiratory rate of 18, saturating 92% on 0.5 L per minute of oxygen nasal cannula. GENERAL: He is in obvious distress. HEENT: His sclerae are anicteric. His oropharynx is slightly dry. NECK: Trachea is midline. No JVD. LUNGS: Clear bilaterally. HEART: Regular rate and rhythm, although tachycardic. ABDOMEN: Distended. Caput medusa is noted. He has scars on his abdomen, which are well healed in the lower midline as well as from his laparoscopic cholecystectomy. His abdomen is diffusely tender, very distended. He has a Band-Aid on it from paracentesis earlier today. EXTREMITIES: With edema, and he does have 2+/2+ peripheral pulses. DATA REVIEWED: CT scan is personally reviewed with Dr. Watts. Discussion is also held with Dr. Apollo Condon from GI, and findings are that of likely small bowel perforation with leakage of contrast into the abdomen and free air. This is seen on CT scan. Retrospective review of his CT scan from 07/05/2018, demonstrates free air prior to paracentesis. The previous paracentesis was done in May prior to the CT scan. White blood cell count shows left shift. Increasing creatinine to 2.5 suggests dehydration and sepsis. He has less acidotic that I thought IMPRESSION: Free air and extraluminal contrast, likely due to small-bowel perforation, secondary peritonitis as opposed to primary bacterial peritonitis as a new diagnosis. Liver failure Acute kidney injury Failure to thrive PLAN: Given the patient's comorbid conditions, current medical state. He is at high risk for morbidity and mortality perioperatively. Without surgery, he certainly will not survive this insult. Approximately 65 minutes was spent currently with the patient and family [id number], greater than 50% of that time was in planning. I will plan on following up with the patient and his daughter who is coming in soon to discuss options for care, which include laparotomy with possible enterectomy. The risks of this are bleeding, infection , , prolonged recovery, anastomotic leak. We will change him to DNR at this point, institute comfort care measures, palliative care consult for the morning /[id number]/MODL MTDD
[2018-07-09 06:06] VITALS: BP 98/49
--- NOTE | 2018-07-09 09:03 | HOSPPROG ---
Hospitalist Progress Note Assessment/Plan: # goals of care - purely comfort; agree with not proceeding with surgery given the significant risks; will stop all non-comfort based medications and interventions; DNR; hospice eval; cont continuous dilaudid gtt # bowel perforation with secondary bacterial peritonitis # metabolic encephalopathy # cirrhosis due to BULLOCK # DARLENE on CKD (baseline about 1.7) # RCC s/p nephrectomy 08/2016 # h/o PE 2016 # hypotension Subjective: CT scan ordered last night showed bowel perforation and free air; seen by Dr. Waterman with General surgery; family has elected for purely comfort care; I discussed stopping all interventions that are non comfort based including antibiotics; Objective: Vital Signs Temp Pulse Resp BP Pulse Ox 37.1 C 89 18 98/49 L 94 07/09/18 06:00 07/09/18 06:00 07/09/18 06:00 07/09/18 06:00 07/09/18 06:00 Microbiology 07/05/18 14:49 Gram Stain - Final Peritoneal Fluid - Aspirate 07/08/18 12:00 Gram Stain - Final Peritoneal Fluid - Aspirate Body Fluid Culture - Final Laboratory Results 07/08/18 05:38 07/08/18 05:38 07/08/18 07/09/18 07/10/18 05:59 05:59 05:59 Intake Total 300 760 Balance 300 760 PT 20.0 SEC (12.0-15.0) H 07/07/18 04:54 INR 1.69 (0.83-1.16) H 07/07/18 04:54 high risk - Physical Exam Constitutional: other (resting, occasionally startles) ICD10 Worksheet Patient Problems: Problems Problem Status Onset Abdominal pain Acute Pneumonia Acute Clostridium difficile infection Acute ~01/22/17 Ascites Acute Renal insufficiency Acute Pulmonary embolism Acute Cirrhosis Acute Ascites Acute Chest pain Acute Cholelithiases Acute Cirrhosis Acute Left renal mass Acute
[2018-07-09] MEDS ORDERED: chlorproMAZINE HCL 50 MG in NS 50 ML IV ONE (09:06)
--- NOTE | 2018-07-09 10:19 | ASMTCMCOM ---
CM Note CM Note Notes: CM spoke with RN and MD, submit referral for [facility]. They are coming in at 10:00am tomorrow (Tuesday) to meet with pt and family for hospice eval. Pt is actively on comfort measures. CM notified family and provided support. Pt's daughter is a museum exhibit designer, family not interested in speaking with Spiritual Care at this time. Date Signed: 07/09/2018 10:17 AM Electronically Signed By:PRIYA Miller
--- NOTE | 2018-07-09 12:25 | SOAPPROG ---
SOAP Progress Note Assessment/Plan: Assessment:Plan: 1) SBP - WBC down peripherally, pain worse by report, query secondary peritonitis, continue Ceftriaxone 2) Renal - Cr up, query HPR? 3) HE - improved but still with intermittent encephalopathy, Xifaxan 550 BID Plan: retap diagnostic for cell count ldh, glucose continue Xifaxan for HE renal consultation 07/08/18 12:04 07/08/18 16:25 ADDENDUM pt with low glucose (< 50) and LDH > 800 - so needs CT scan to evaluate for possible secondary bacterial peritonitis CT abdo NO IV contrast, oral contrast if pt can tolerate I see ID added fungal coverage as yeast seen on tap today 07/08/18 16:28 07/09/18 12:23 1) secondary bacterial peritonitis with abdo perf - prob small bowel - comfort measures in place. He appears comfortable in bed, family in room will sign off Subjective: cc- secondary bacterial peritonitis comfort care pt sedated and comfortable Objective: Vital Signs Temp Pulse Resp BP Pulse Ox 37.1 C 89 18 98/49 L 94 07/09/18 06:00 07/09/18 06:00 07/09/18 06:00 07/09/18 06:00 07/09/18 06:00 Microbiology 07/08/18 12:00 Gram Stain - Final Peritoneal Fluid - Aspirate Body Fluid Culture - Final 07/05/18 14:49 Gram Stain - Final Peritoneal Fluid - Aspirate Laboratory Results 07/08/18 05:38 07/08/18 05:38 07/08/18 07/09/18 07/10/18 05:59 05:59 05:59 Intake Total 300 760 Balance 300 760 PT 20.0 SEC (12.0-15.0) H 07/07/18 04:54 INR 1.69 (0.83-1.16) H 07/07/18 04:54 lying in bed in no distress ICD10 Worksheet Patient Problems: Problems Problem Status Onset Abdominal pain Acute Ascites Acute Pneumonia Acute Ascites Acute Chest pain Acute Cholelithiases Acute Cirrhosis Acute Cirrhosis Acute Clostridium difficile infection Acute ~01/22/17 Left renal mass Acute Pulmonary embolism Acute Renal insufficiency Acute
[2018-07-09] MEDS: HYDROmorphONE/DILAUDID 6 MG/30 ML PCA IV PRN (22:35)
--- NOTE | 2018-07-10 09:12 | HOSPPROG ---
Hospitalist Progress Note Assessment/Plan: # goals of care - purely comfort; agree with not proceeding with surgery given the significant risks; will stop all non-comfort based medications and interventions; DNR; hospice eval today; cont continuous dilaudid gtt # bowel perforation with secondary bacterial peritonitis # metabolic encephalopathy # cirrhosis due to BULLOCK # DARLENE on CKD (baseline about 1.7) # RCC s/p nephrectomy 08/2016 # h/o PE 2016 # hypotension Subjective: discussed with patient's ; he appears comfortable; no further hiccups today Objective: Vital Signs Temp Pulse Resp BP Pulse Ox 37.1 C 89 18 98/49 L 94 07/09/18 06:00 07/09/18 06:00 07/09/18 06:00 07/09/18 06:00 07/09/18 06:00 Microbiology 07/08/18 12:00 Gram Stain - Final Peritoneal Fluid - Aspirate Body Fluid Culture - Final 07/05/18 14:49 Gram Stain - Final Peritoneal Fluid - Aspirate Laboratory Results 07/08/18 05:38 07/08/18 05:38 07/09/18 07/10/18 07/11/18 05:59 05:59 05:59 Intake Total 760 360 Output Total 100 Balance 760 260 PT 20.0 SEC (12.0-15.0) H 07/07/18 04:54 INR 1.69 (0.83-1.16) H 07/07/18 04:54 high risk on continuous narcotic gtt - Physical Exam Constitutional: other (sleeping, regular breathing) Cardiovascular: No edema Gastrointestinal: distension Genitourinary: No rosas in urethra Skin: warm Musculoskeletal: no joint effusions Neurologic: other (barely arousable) Psychiatric: not anxious ICD10 Worksheet Patient Problems: Problems Problem Status Onset Abdominal pain Acute Pneumonia Acute Clostridium difficile infection Acute ~01/22/17 Ascites Acute Renal insufficiency Acute Pulmonary embolism Acute Cirrhosis Acute Ascites Acute Chest pain Acute Cholelithiases Acute Cirrhosis Acute Left renal mass Acute
--- NOTE | 2018-07-10 12:04 | PDIAF ---
- Diagnosis Diagnosis: Bowel Perforation Code Status: Do Not Resuscitate - Medication Management Discharge Medications: electronically signed and located in the Home Medication List. - Orders Services needed: Registered Nurse, Certified Weapons Engineer Isolation Type: None - Follow Up Care Current Providers and Referrals: He Osei MD [Primary Care Provider] - As per Instructions
--- NOTE | 2018-07-10 12:38 | GDS ---
[f rep st] DISCHARGE SUMMARY ALL DIAGNOSES: 1. Bowel perforation. 2. Peritonitis. 3. Metabolic encephalopathy. 4. Cirrhosis due to nonalcoholic steatohepatitis. 5. Acute kidney injury. 6. Renal cell carcinoma status post nephrectomy. 7. History of a pulmonary embolus in 2017. 8. Hypotension. HOSPITAL COURSE: A 72-year-old man admitted with a history of cirrhosis due to BULLOCK who presented wi th abdominal pain. Initial imaging showed ascites but no other clear cause of his pain. His periton eal fluid was markedly abnormal. He was initially treated for SBP. He did not really improve, thus had a 2nd CT scan which showed a bowel perforation with free air. He was seen by Dr. Waterman who yusef luated him before surgery. Given his underlying comorbidities and his degree of sickness, he and his family opted for purely comfort care. I think that this is reasonable. He was not a transplant can didate for his liver given his history of renal cell carcinoma. He has been seen by [facility] who will admit him to the care facility this afternoon. Since being comfort care, he has been on a jose nuous Dilaudid drip and has had no significant physical pain when he is resting, although he is uncom fortable when he moves. DISPOSITION: To inpatient hospice in critical condition. BILLING: I spent more than 30 minutes on the day of discharge coordinating care. /[id number]/MODL
--- NOTE | 2018-07-10 15:11 | ASMTLACE ---
LACE Length of stay for Answers: 4-6 days current admission Comorbidities - select Answers: Any tumor (including all that apply lymphoma or leukemia) Diabetes (uncontrolled or controlled) Mild liver or renal disease # of Emergency department Answers: 1-2 visits in the last 6 months Score: 10 Date Signed: 07/10/2018 03:10 PM Electronically Signed By:Aminta Juan RN
[2018-07-10] MEDS ORDERED: HYDROmorphONE/DILAUDID 1 MG/ML INJ IVP ONE (15:35)
[2018-07-10] MEDS ORDERED: SCOPOLAMINE HYDROBROMIDE 1 MG/3 DAYS PATCH TD SCH (15:45)
--- NOTE | 2018-07-11 15:59 | ASDISCHSUM ---
Discharge Information Plan Status:Hospice-Inpatient Medically Cleared to Leave:07/09/2018 Discharge Date:07/10/2018 04:22 PM CM D/C Disposition:Hospice Facility ADT D/C Disposition:Hospice Facility Projected Discharge Date:07/09/2018 11:00 AM Transportation at D/C:ALS/BLS Discharge Delay Reason: Follow-Up Date:07/09/2018 11:00 AM Discharge Slot: Final Diagnosis: Placement Information Referral Type:*Hospice Referral ID:[id number] Provider Name:[facility] Address 1:[address] Address 2: City:[place] Selection Factors: State:[place] Patient Contact Information Contact Name:JOSE Relationship: Address:[address] Work Phone: [facility]:[place] Alternate Phone: State/Zip Code:[place] [address] Email: Financial Information Financial Class:Medicare [employer]Spot Primary Plan Desc:[facility] [employer] Primary Plan Number:[id number] Secondary Plan Desc: Secondary Plan Number: Assessment Information LACE LACE Length of stay for Answers: 4-6 days current admission Comorbidities - select Answers: Any tumor (including all that apply lymphoma or leukemia) Diabetes (uncontrolled or controlled) Mild liver or renal disease # of Emergency department Answers: 1-2 visits in the last 6 months Score: 10 Date Signed: 07/10/2018 03:10 PM Electronically Signed By:Aminta Juan RN [facility] CM Progress Note CM Note CM Note Notes: Chart reviewed for discharge planning purposes. 72 year old male admitted from ED with c/o abdominal pain for past 9 days. History significant for renal cancer, nephrectomy, diabetes and cirrhosis. He has significant ascites. CM to follow for needs. Plan: TBD Date Signed: 07/05/2018 04:44 PM Electronically Signed By:Aminta Juan RN [facility] CM Progress Note CM Note CM Note Notes: Continues on IV antibiotics which he has improved on. PT and OT evals have been ordered for pt. CM will follow for recommendations. D/C Plan: TBD Date Signed: 07/07/2018 02:45 PM Electronically Signed By:Bina Argueta [facility] Progress Note CM Note CM Note Notes: CM spoke with RN and MD, submit referral for [facility]. They are coming in at 10:00am tomorrow (Tuesday) to meet with pt and family for hospice eval. Pt is actively on comfort measures. CM notified family and provided support. Pt's daughter is a grocery associate, family not interested in speaking with Spiritual Care at this time. Date Signed: 07/09/2018 10:17 AM Electronically Signed By:PRIYA Miller Intervention Information Intervention Type:IM-Pt. Not Available Date of Service:07/10/2018 02:34 PM Patient Type:Inpatient Staff Member:Stephanie Alejandre Hours: Discipline: Severity: Comment:
[2018-07-13] MEDS ORDERED: PATCH REMOVAL 1 EA PATCH TD SCH (15:38)
== END 2018-07-10 16:22 | disposition hospice, home (50) | DRG 393 ==
LOC: EDUNIT# → INTOOBSV 08:56 → OBSVTOIN 10:06 → F1N 15:27
PROVIDERS: ADMIT Internal Medicine; ATTEND Internal Medicine
PROC: 0W9G3ZX Drainage of Peritoneal Cavity, Percutaneous Approach, Diagnostic (ICD-10-PCS; principal; 2018-07-05)
PROC: 0W9G3ZZ Drainage of Peritoneal Cavity, Percutaneous Approach (ICD-10-PCS; 2018-07-08)
DX: K63.1 Perforation of intestine (nontraumatic) (principal); K65.8 Other peritonitis; G93.41 Metabolic encephalopathy; R18.8 Other ascites; N17.9 Acute kidney failure, unspecified; K75.81 Nonalcoholic steatohepatitis (NASH); K74.69 Other cirrhosis of liver; N40.0 Benign prostatic hyperplasia without lower urinary tract symptoms; N18.3 Chronic kidney disease, stage 3 (moderate); Z66 Do not resuscitate; Z90.5 Acquired absence of kidney; Z85.528 Personal history of other malignant neoplasm of kidney; Z86.711 Personal history of pulmonary embolism; Z80.41 Family history of malignant neoplasm of ovary
CPT/HCPCS: 87186-90; 96365; 97161-GP; 97166-GO; 97535-GO; G0378; J0456; J0696; J1170; J1644; J2248; J2405; J2550; J3010; J3230; P9047